=== PATIENT | female | born 1960 | race Caucasian/White ===

== ENCOUNTER 2019-04-14 15:18 | Outpatient (CLI) | payer MEDICARE, OTHER, SELFPAY ==
[2019-04-14 16:03] LABS: Basophils % 0.7 %; Eosinophils % 0.7 %; Hematocrit 40.5 % (37.0-47.0); Hemoglobin 14.1 g/dL (11.5-15.3); Lymphocytes # 0.4 10^3/uL (0.8-4.8); Lymphocytes % 15.7 %; Mean Corpuscular HGB Conc 34.8 g/dL (30.0-36.0); Mean Corpuscular Hemoglobin 34.2 pg (28.0-34.0); Mean Corpuscular Volume 98.3 fL (81-99); Mean Platelet Volume 11.7 fL (7.4-10.4); Monocytes # 0.2 10^3/uL (0.2-0.9); Monocytes % 5.7 %; Neutrophils # 2.2 10^3/uL (1.8-7.7); Neutrophils % 77.2 %; Nucleated Red Blood Cells % 0 %; Platelet Count 155 10^3/cmm (130-400); Red Blood Count 4.12 10^6/uL (4.1-5.3); White Blood Count 2.8 10^3/uL (4.0-10.0)
[2019-04-14 16:20] LABS: Alanine Aminotransferase 64 U/L (0-33); Albumin Level 3.7 g/dL (3.5-5.2); Alkaline Phosphatase 101 IU/L (35-105); Aspartate Amino Transferase 89 U/L (0-32); Globulin 3.4 g/dL (1.3-4.6); Total Bilirubin 1.2 mg/dL (0.15-1.2); Total Protein 7.1 g/dL (6.6-8.7)
== END 2019-04-14 15:19 | disposition home or self-care (01) ==
LOC: LAB 15:25
PROVIDERS: Family Provider Family Medicine; PCP Family Medicine; Visit Provider Psychiatry & Neurology Neurology
DX: G70.00 Myasthenia gravis without (acute) exacerbation (principal)
CPT/HCPCS: 36415; 80076; 85025

== ENCOUNTER 2019-07-08 13:49 | Emergency (ER) | payer MEDICARE, OTHER, SELFPAY ==
[2019-07-08 14:45] VITALS: BP 123/76; PULSE 78; RESP 14; TEMP 37.5; O2SAT 96; BMI 27.4
--- NOTE | 2019-07-08 14:46 | W.ED.GENADLT ---
HPI - General Adult General: Chief complaint: General Medical Stated complaint: cramps Time Seen by Provider: 07/08/19 14:34 History of Present Illness: HPI narrative: Patient is a 58-year-old female who comes to the ED with abdominal cramping. Abdominal cramping started today right after eating lunch. Patient says that she felt intense pain in the middle of her abdomen that caused her whole body to tense up. The pain would come and go and this lasted for about 30 minutes. Patient says she has never had this kind of abdominal pain before. Patient decided come to the ED for evaluation. While here in the ED she is not having any abdominal pain or cramping. She denies having any fever, nausea, vomiting, chest pain, shortness of breath, dysuria, hematuria, diarrhea, constipation, blood in stool. Associated symptoms: Deny chest pain, dyspnea, headache(s), nausea, rash, palpitations or vomiting Review of Systems Const: Denies: fever, chills or fatigue Eyes: Denies: change in vision or eye discomfort ENMT: Denies: throat pain, painful swallowing, nasal discharge or nasal congestion Card: Denies: chest pain, palpitations, edema, swelling of feet/ankles, shortness of breath on exertion or shortness of breath when lying down Resp: Denies: shortness of breath, productive cough or non-productive cough GI: Reports: abdominal pain; Denies: nausea, vomiting, diarrhea, constipation or blood in stool : Denies: flank pain, painful urination or blood in urine Musc: Denies: neck pain, back pain or extremity swelling Skin/Breast: Denies: rash or new lesion Neuro: Denies: headache, numbness in extremities or weakness in extremities PFS ED PFSH: Social History Smoking and tobacco status: never smoked Physical Exam Const: COMMON NORMALS: no apparent distress, oriented x3, healthy appearing and alert GENERAL APPEARANCE: cooperative, comfortable and well hydrated HENMT: COMMON NORMALS: normocephalic HEAD & SCALP: normocephalic MOUTH: oral and palatal mucosa normal THROAT: posterior oropharynx normal and uvula midline Eye: COMMON NORMALS: PERRL PUPIL: Yes PERRL Neck/C-Spine: COMMON NORMALS: supple GENERAL: Yes normal visual inspection Resp: COMMON NORMALS: normal respiratory effort, no retractions, no use of accessory muscles and clear to auscultation bilaterally AUSCULTATION: clear to auscultation bilaterally Cardio: COMMON NORMALS: regular rate, regular rhythm, S1 normal heart sound, S2 normal heart sound, no gallops, no clicks, no murmurs and peripheral pulses 2+ throughout RATE: regular rate RHYTHM: regular rhythm HEART SOUNDS: S1 normal and S2 normal PERIPHERAL PULSES: pulses 2+ throughout GI: COMMON NORMALS: normal to inspection, nondistended, normoactive bowel sounds, soft to palpation (No tenderness upon palpation of the abdomen. Negative McBurney's and negative Dyson's.), non-tender and no masses INSPECTION: Yes central obesity AUSCULTATION: Yes normoactive bowel sounds PALPATION: Yes soft (No tenderness upon palpation of the abdomen. Negative McBurney's and negative Dyson's.) : COMMON NORMALS: Yes no CVA tenderness BLADDER/KIDNEY EXAM: Yes no CVA tenderness Back/Pelvis: COMMON NORMALS: no CVA tenderness Extremity: COMMON NORMALS: normal to inspection and no pedal edema Neuro: COMMON NORMALS: oriented x3 and moves all extremities SENSORIUM/ORIENTATION: Yes alert Skin: COMMON NORMALS: no rashes or lesions noted GENERAL SKIN EXAM: no rashes or lesions noted and dry skin Course ED course: Patient feels normal while here in ED and has not had any episodes of abdominal pain or cramping. Patient states that she did not want to come to the ED did not think the abdominal cramping was a big deal, but her family insisted she comes to the ED. Vital Signs: Vital signs: Vital Signs Temperature 99.5 F 07/08/19 14:45 Pulse Rate 76 07/08/19 16:51 Respiratory Rate 16 07/08/19 16:51 Blood Pressure 108/65 07/08/19 16:51 Pulse Oximetry 95 07/08/19 16:51 MDM - General Adult MDM Narrative: Medical decision making narrative: Patient is a 58-year-old female who comes to the ED with an episode of abdominal cramping. Symptoms resolved at home and patient had no similar abdominal cramping episode while here in the ED. CBC, lipase, UA and CMP were all unremarkable. KUB showed no acute findings. Patient was discharged and told to follow-up with her PCP in the next 7 to 10 days for reevaluation. Patient understood and agreed with plan. Lab Data: Attestation: I reviewed the patient's lab results. Labs: Lab Results 07/08/19 07/08/19 07/08/19 Range/Units 15:27 15:27 15:30 WBC 3.1 L (4.0-10.0) 10^3/ uL RBC 3.96 L (4.1-5.3) 10^6/u L Hgb 13.4 (11.5-15.3) g/dL Hct 39.2 (37.0-47.0) % MCV 99.0 (81-99) fL MCH 33.8 (28.0-34.0) pg MCHC 34.2 (30.0-36.0) g/dL RDW 13.4 (12.1-15.1) % Plt Count 147 (130-400) 10^3/c mm MPV 11.3 H (7.4-10.4) fL Neut % (Auto) 75.3 % Lymph % (Auto) 16.0 % [place] % (Auto) 6.4 % Eos % (Auto) 1.0 % Baso % (Auto) 1.0 % Neut # (Auto) 2.4 (1.8-7.7) 10^3/u L Lymph # (Auto) 0.5 L (0.8-4.8) 10^3/u L [place] # (Auto) 0.2 (0.2-0.9) 10^3/u L Eos # (Auto) 0.0 (0.0-0.8) 10^3/u L Baso # (Auto) 0.0 (0.0-0.1) 10^3/u L Nucleated RBC % (a uto) 0 % Nucleated RBCs # 0.0 /100WBC Sodium 138 (136-145) mmol/L Potassium 4.3 (3.5-5.1) mmol/L Chloride 100 (98-107) mmol/L Carbon Dioxide 26 (22-29) mmol/L Anion Gap 16.3 (5-19) BUN 11 (6-20) mg/dL Creatinine 0.6 (0.5-0.9) mg/dL GFR Calculation 102.3 (90-130) mL/min Glucose 343 H (65-115) mg/dL Calculated Osmolal ity 296 H (285-295) mOsm/k g Calcium 9.6 (8.5-10.5) mg/dL Total Bilirubin 1.3 H (0.15-1.2) mg/dL AST 31 (0-32) U/L ALT 25 (0-33) U/L Alkaline Phosphata se 88 (35-105) IU/L Total Protein 6.7 (6.6-8.7) g/dL Albumin 4.2 (3.5-5.2) g/dL Globulin 2.5 (1.3-4.6) g/dL Lipase 50 (13-60) U/L Urine Color Yellow (Yellow) Urine Appearance Sl hazy (CLEAR) Urine pH 5 (5-7) Ur Specific Gravit y 1.010 (1.005-1.030) Urine Protein Neg (Negative) Urine Glucose (UA) 4+ H (Normal) Urine Ketones Negative (Negative) Urine Blood Neg (Negative) Urine Nitrate Negative (Negative) Urine Bilirubin Neg (NEGATIVE) Urine Urobilinogen Norm (Negative) mg/dL Ur Leukocyte Jennifer ase 2+ H (Negative) Urine RBC None (0-2) /hpf Urine WBC 10-15 H (0-5) /hpf Ur Squamous Epith Cells 10-15 H (0-5) Urine Bacteria Trace (NONE) Urine Mucus Trace Imaging Data^: KUB: Attestation: I personally reviewed and interpreted this imaging study as follows: Radiologist's impression: [place] [address] XRay Report Signed Patient: Pia Osborn Unit #: [id number] : 1960 Age/Sex: 58 / F ADM Date: 07/08/19 Loc: ER Room/Bed: Attending Dr: Ordering Provider/Ordering MD: Idris Ventura Date of Service: 07/08/19 Procedure(s): XR KUB portable [id number] Accession Number(s): [id number] Report Number: [id number] WS: [id number] XR KUB portable [id number] REASON FOR EXAM: abdominal pain FINDINGS: Nonspecific gas with marked fecal stasis throughout the colon. The bony lumbar spine and pelvis show no abnormalities. There is no air-fluid levels seen. No definite free air seen. XR/XR KUB portable [id number] IMPRESSION: Nonspecific abdominal findings. Dictated By: Josue Dyson DO Signed By: Josue Dyson DO Signed Date/Time: 07/09/19751 DD/ 1 Discharge Plan Discharge Patient Disposition: Home, Self-Care Clinical Impression: Abdominal cramping Condition: Stable Prescriptions: No Action atorvastatin 20 mg tablet 20 mg PO DAILY RF: 0 glipizide 10 mg tablet 10 mg PO BID RF: 0 azathioprine 50 mg tablet 50 mg PO DAILY RF: 0 citalopram 20 mg tablet 20 mg PO DAILY RF: 0 cyanocobalamin (vitamin B-12) 1,000 mcg/mL solution See Rx Instructions .ROUTE .COMPLEX RF: 0 pyridostigmine bromide 60 mg tablet 60 mg PO QID RF: 0 metformin 500 mg tablet extended release 24 hr 1,000 mg PO BID RF: 0 Euthyrox 112 mcg tablet 100 mcg PO DAILY RF: 0 Januvia 100 mg tablet 100 mg PO DAILY RF: 0 Discharge Orders: Discharge Order (Routine); Ordered 07/08/19 Ordered By: Idris Ventura Referrals: Phyllis Shaw MD [Primary Care Provider] - Discharge Diet: Regular Discharge Activity: Resume usual activity Patient Instructions: Abdominal Pain (ED) Activity Restrictions/Additional Instructions: Follow-up with PCP in 7 to 10 days for reevaluation. Drink plenty of fluids and stay hydrated. Keep a food journal to see if there is any foods in particular that cause symptoms. Discharge Date/Time: 07/08/19 17:08 Coding Level of Care Code ED Foreclosure Clerk for Chg Fwd Exam Comprehensive
--- NOTE | 2019-07-08 15:06 | XR_ITS ---
WS: [id number] XR KUB portable [id number] REASON FOR EXAM: abdominal pain FINDINGS: Nonspecific gas with marked fecal stasis throughout the colon. The bony lumbar spine and pelvis show no abnormalities. There is no air-fluid levels seen. No definite free air seen. XR/XR KUB portable [id number] IMPRESSION: Nonspecific abdominal findings.
[2019-07-08 15:33] LABS: Hematocrit 39.2 % (37.0-47.0); Hemoglobin 13.4 g/dL (11.5-15.3); Lymphocytes # 0.5 10^3/uL (0.8-4.8); Mean Corpuscular HGB Conc 34.2 g/dL (30.0-36.0); Mean Corpuscular Hemoglobin 33.8 pg (28.0-34.0); Mean Platelet Volume 11.3 fL (7.4-10.4); Monocytes # 0.2 10^3/uL (0.2-0.9); Monocytes % 6.4 %; Neutrophils # 2.4 10^3/uL (1.8-7.7); Neutrophils % 75.3 %; Nucleated Red Blood Cells % 0 %; Platelet Count 147 10^3/cmm (130-400); Red Blood Count 3.96 10^6/uL (4.1-5.3); Red Cell Distribution Width 13.4 % (12.1-15.1); White Blood Count 3.1 10^3/uL (4.0-10.0)
[2019-07-08 15:47] LABS: Alanine Aminotransferase 25 U/L (0-33); Albumin Level 4.2 g/dL (3.5-5.2); Alkaline Phosphatase 88 IU/L (35-105); Anion Gap 16.3 (5-19); Aspartate Amino Transferase 31 U/L (0-32); Blood Urea Nitrogen 11 mg/dL (6-20); Calcium 9.6 mg/dL (8.5-10.5); Carbon Dioxide 26 mmol/L (22-29); Chloride 100 mmol/L (98-107); Globulin 2.5 g/dL (1.3-4.6); Glomerular Filtration Rate 102.3 mL/min (90-130); Glucose 343 mg/dL (65-115); Lipase 50 U/L (13-60); Osmolality Calculated 296 mOsm/kg (285-295); Potassium 4.3 mmol/L (3.5-5.1); Sodium 138 mmol/L (136-145); Total Bilirubin 1.3 mg/dL (0.15-1.2); Total Protein 6.7 g/dL (6.6-8.7)
[2019-07-08 15:56] LABS: Bilirubin Urine Neg (NEGATIVE); Blood Urine Neg (Negative); Glucose Urine UA 4+ (Normal); Ketones Urine Negative (Negative); Leukocyte Esterase Urine 2+ (Negative); Nitrate Urine Negative (Negative); Protein Urine Neg (Negative); Urine Appearance SL Hazy (CLEAR); Urine Color Yellow (Yellow); Urobilinogen Urine Norm (Negative); pH Urine 5 (5-7)
[2019-07-08 15:59] LABS: Add Urine Culture? No; Bacteria Urine TRACE; Mucus Urine TRACE
[2019-07-08 16:51] VITALS: BP 108/65; PULSE 76; RESP 16; O2SAT 95
== END 2019-07-08 17:08 | disposition home or self-care (01) ==
PROVIDERS: Emergency Provider Physician Assistant; PCP Family Medicine
DX: R10.9 Unspecified abdominal pain (principal); Z79.84 Long term (current) use of oral hypoglycemic drugs
CPT/HCPCS: 12345; 74018; 80053; 81001; 83690; 85025; 99282; 99283

== ENCOUNTER 2020-12-18 10:19 | Outpatient (CLI) | payer MEDICARE, OTHER, SELFPAY ==
--- NOTE | 2020-12-18 10:28 | MM_ITS ---
WS: [id number] BILATERAL SCREENING DIGITAL MAMMOGRAM WITH CAD HISTORY: SCREENING COMPARISON: None available. Bilateral CC and MLO views submitted. Computer aided detection analyzed. Breast composition: There are scattered areas of fibroglandular density. No suspicious masses, microc alcifications or architectural distortion. Benign calcifications in each breast. MM/[place] [id number] IMPRESSION: BI-RADS: 2-Benign FOLLOW UP: 1 Year Follow-up
== END 2020-12-18 10:20 | disposition home or self-care (01) ==
LOC: RADSHAW 10:27
PROVIDERS: PCP Family Medicine; Visit Provider Internal Medicine
DX: Z12.31 Encounter for screening mammogram for malignant neoplasm of breast (principal)
CPT/HCPCS: 77067

== ENCOUNTER 2021-07-25 13:21 | Emergency (ER) | payer MEDICARE, OTHER, SELFPAY ==
--- NOTE | 2021-07-25 13:22 | ED_ITS ---
HPI - General Adult General: Chief complaint: Fall Stated complaint: FALL/ HIP PAIN Time Seen by Provider: 07/25/21 13:22 History of Present Illness: Patient is 60-year-old female with history of myasthenia gravis, hypothyroidism, diabetes who presents emergency room after mechanical fall which occurred about an hour ago. Patient was also she tripped and fell onto her back. Patient complains of left anterior brown pain and left- sided hip pain. Patient denies any head injury, LOC or anticoagulation use. Patient has no complaints of chest pain, shortness of palpitation lighthea dedness prior to the episode of fall. No other injuries today. Patient has not been able to bear weight. Onset:1 hr ago Duration:1 hr Location:home Severity:moderate/severe Associated symptoms: Deny chest pain, dyspnea, nausea, rash, palpitations or vomiting Review of Systems Const: Denies: fever(s) or chills Eyes: Denies: change in vision ENMT: Denies: mouth pain Card: Denies: chest pain or palpitations Resp: Denies: dyspnea or non-productive cough GI: Denies: abdominal pain, nausea, vomiting or diarrhea : Denies: dysuria Musc: Reports: extremity pain (+L hip pain, +L knee/anterior brown pain) Skin/Breast: Denies: rash or new lesions Neuro: Denies: weakness in extremities Psych: Reports: other (Normal mood) Minesh/Lymph: Denies: easy bruising PFS ED PFSH: Medical History Diabetes Hypothyroidism Myasthenia Social History Smoking and tobacco status: never smoked Alcohol intake: never Substance/Drug Use: never Physical Exam Const: COMMON NORMALS: alert HENMT: COMMON NORMALS: atraumatic HEAD & SCALP: atraumatic MOUTH: moist mucous membranes not abnormal Eye: COMMON NORMALS: EOMs intact bilaterally and conjunctivae normal CONJUNCTIVA: Yes conjunctivae normal Neck/C-Spine: COMMON NORMALS: full ROM and supple Resp: COMMON NORMALS: normal respiratory effort and clear to auscultation bilaterally AUSCULTATION: clear to auscultation bilaterally Cardio: COMMON NORMALS: regular rate RATE: regular rate GI: COMMON NORMALS: Soft to palpation and non-tender PALPATION: Yes Soft to palpation Extremity: NARRATIVE EXTREMITY EXAM: + Decreased range of motion of the left hip, neurovascular exam intact on the left lower extremity, mild tenderness palpation over the anterior brown on the left side, range of motion of left knee and left ankle intact, cap refill less than 3 seconds in the left side Neuro: SENSORIUM/ORIENTATION: Yes alert MOTOR EXAM: No Abnormal motor strength present and Other motor observations present (no focal motor deficits) Psych: COMMON NORMALS: speech normal SPEECH: Yes normal speech MOOD & AFFECT: Yes euthymic mood Course Vital Signs: Vital signs: Vital Signs Temperature 98.2 F 07/25/21 13:25 Pulse Rate 70 07/25/21 13:25 Respiratory Rate 18 07/25/21 14:44 Blood Pressure 174/85 07/25/21 13:25 Pulse Oximetry 97 07/25/21 14:44 MDM - General Adult Medical Decision Making 60-year-old female with history of myasthenia gravis, diabetes, hypothyroidism presenting to the emergency room for an episode of fall. Patient comes in with left hip and left knee anterior brown pain. Patient has mild left anterior brown tenderness palpation. Neurovascular exam in the affected extremity intact. Range of motion decreased on the left hip due to pain. XR showed L hip fracture. At 2:15 PM, family elects to be transferred to higher level of care given patient prior history myasthenia gravis issue with an esthesia Case was discussed with Dr. Plunkett who agreed with the transfer to [facility]. Disposition: Transfer to outside hospital Lab Data : 07/25/21 14:25 07/25/21 14:25 Radiology Impressions Hip/Pelvis X-Ray 07/25/21 13:26 IMPRESSION: 1. Slightly displaced subcapital fracture of the left hip. Knee X-Ray 07/25/21 13:26 IMPRESSION: 1. Mild degenerative changes and osteopenia. No fracture. Tibia/Fibula X-Ray 07/25/21 13:26 IMPRESSION: 1. No fracture or dislocation. Shoulder X-Ray 07/25/21 13:34 IMPRESSION: LEFT shoulder calcific tendinitis. No fracture. Wrist X-Ray 07/25/21 13:34 IMPRESSION: 1. No acute fracture. Laboratory Results WBC 5.2 10^3/uL (4.0-10.0) 07/25/21 14:25 RBC 3.76 10^6/uL (4.1-5.3) L 07/25/21 14:25 Hgb 11.1 g/dL (11.5-15.3) L 07/25/21 14:25 Hct 33.0 % (37.0-47.0) L 07/25/21 14:25 MCV 87.8 fl (81-99) 07/25/21 14:25 MCH 29.5 pg (28.0-34.0) 07/25/21 14:25 MCHC 33.6 g/dL (30.0-36.0) 07/25/21 14:25 RDW 13.6 % (12.1-15.1) 07/25/21 14:25 Plt Count 104 10^3/cmm (130-400) L 07/25/21 14:25 MPV 11.3 fL (7.4-10.4) H 07/25/21 14:25 Neut % (Auto) 74.9 % 07/25/21 14:25 Lymph % (Auto) 17.5 % 07/25/21 14:25 [place] % (Auto) 5.8 % 07/25/21 14:25 Eos % (Auto) 0.8 % 07/25/21 14:25 Baso % (Auto) 0.4 % 07/25/21 14: Neut # (Auto) 3.89 10^3/uL (1.8-7.7) 07/25/21 14:25 Lymph # (Auto) 0.9 10^3/uL (0.8-4.8) 07/25/21 14:25 [place] # (Auto) 0.3 10^3/uL (0.2-0.9) 07/25/21 14:25 Eos # (Auto) 0.0 10^3/uL (0.0-0.8) 07/25/21 14:25 Baso # (Auto) 0.0 10^3/uL (0.0-0.1) 07/25/21 14:25 Nucleated RBC % (auto) 0 % 07/25/21 14: Nucleated RBCs # 0.0 /100WBC 07/25/21 14:25 PT 13.20 SECONDS (12.1-14.9) 07/25/21 14:25 INR 0.97 (0.8-1.2) 07/25/21 14:25 APTT 23.0 SECONDS (23.9-36.7) L 07/25/21 14:25 Sodium 135 mmol/L (136-145) L 07/25/21 14:25 Potassium 4.0 mmol/L (3.5-5.1) 07/25/21 14:25 Chloride 99 mmol/L (98-107) 07/25/21 14:25 Carbon Dioxide 26 mmol/L (22-29) 07/25/21 14:25 Anion Gap 14.0 (5-19) 07/25/21 14:25 BUN 15 mg/dL (8-23) 07/25/21 14:25 Creatinine 0.4 mg/dL (0.5-0.9) L 07/25/21 14:25 GFR Calculation 162.3 mL/min (90-130) H 07/25/21 14:25 Glucose 371 mg/dL (65-115) H 07/25/21 14:25 Calculated Osmolality 296 mOsm/kg (285-295) H 07/25/21 14:25 Calcium 9.7 mg/dL (8.5-10.5) 07/25/21 14:25 Imaging Data Other Imaging: Radiologist's impression: [address] [address] XRay Report Signed Patient: Pia Osborn Unit #: [id number] : 1960 Age/Sex: 60 / F ADM Date: 07/25/21 Loc: ER Room/Bed: Attending Dr: Ordering Provider/Ordering MD: Gila Benitez MD Date of Service: 07/25/21 Procedure(s): XR wrist LT 2V 46733 Accession Number(s): [id number] Report Number: [id number] WS: [email or web address] Exam: XR wrist LT 2V 00384 Date/Time of Exam: 07/25/2021 1:34 PM Reason For Exam: pain No fracture or dislocation. Mild DJD. Vascular calcifications noted. XR/XR wrist LT 2V [id number] IMPRESSION: 1. No acute fracture. ? Dictated By: Ab Melchor DO Signed By: Ab Melchor DO Signed Date/Time: 07/25/21 1441 DD/ 1441 [place] [address] XRay Report Signed Patient: Pia Osborn Unit #: [id number] : 1960 Age/Sex: 60 / F ADM Date: 07/25/21 Loc: ER Room/Bed: Attending Dr: Ordering Provider/Ordering MD: Gila Benitez MD Date of Service: 07/25/21 Procedure(s): XR shoulder LT min 2V* 03456 Accession Number(s): [id number] Report Number: [id number] WS: [email or web address] LEFT SHOULDER: 3 VIEW(S) TECHNIQUE: Internal and external rotation with Y view. HISTORY: pain COMPARISON: None available. Osteopenia. Well-circumscribed calcific deposit measuring 7.3 cm adjacent to the humeral head. Mild narrowing of the before meals and glenohumeral joint. No fracture identified. No soft tissue abnormality. XR/XR shoulder LT min 2V* [id number] IMPRESSION: ? LEFT shoulder calcific tendinitis. No fracture. ? Dictated By: Jana Morin DO Signed By: Jana Morin DO Signed Date/Time: 07/25/21 1421 DD/ 14[address] [place] [address] XRay Report Signed Patient: Pia Osborn Unit #: [id number] : 1960 Age/Sex: 60 / F ADM Date: 07/25/21 Loc: ER Room/Bed: Attending Dr: Ordering Provider/Ordering MD: Gila Benitez MD Date of Service: 07/25/21 Procedure(s): XR tibia fibula LT 2V 17982 Accession Number(s): [id number] Report Number: [id number] WS: [email or web address] Exam: XR tibia fibula LT 2V [id number] Date/Time of Exam: 07/25/2021 1:29 PM Reason For Exam: fall No fracture or dislocation. Articular relationships are intact. Vascular calcifications in the soft tissues. XR/XR tibia fibula LT 2V 81851 IMPRESSION: 1. No fracture or dislocation. ? Dictated By: Ab Melchor DO Signed By: Ab Melchor DO Signed Date/Time: 07/25/21 1440 DD/ 14[address] [place] [address] XRay Report Signed Patient: Pia Osborn Unit #: [id number] : 1960 Age/Sex: 60 / F ADM Date: 07/25/21 Loc: ER Room/Bed: Attending Dr: Ordering Provider/Ordering MD: Gila Benitez MD Date of Service: 07/25/21 Procedure(s): XR knee LT 1-2V 12913 Accession Number(s): [id number] Report Number: [id number] WS: [email or web address] Exam: XR knee LT 1-2V 37318 Date/Time of Exam: 07/25/2021 1:29 PM Reason For Exam: knee pain No fracture or dislocation. Mild degenerative joint changes. Osteopenia. Normal soft tissues. No joint effusion. XR/XR knee LT 1-2V 39875 IMPRESSION: 1. Mild degenerative changes and osteopenia. No fracture. ? Dictated By: Ab Melchor DO Signed By: Ab Melchor DO Signed Date/Time: 07/25/21 1440 DD/ [address] [place] [address] XRay Report Signed Patient: Pia Osborn Unit #: [id number] : 1960 Age/Sex: 60 / F ADM Date: 07/25/21 Loc: ER Room/Bed: Attending Dr: Ordering Provider/Ordering MD: Gila Benitez MD Date of Service: 07/25/21 Procedure(s): XR hip LT 2-3V wo/w pel* 74775 Accession Number(s): [id number] Report Number: [id number] WS: [email or web address] Exam: XR hip LT 2-3V wo/w pel* [id number] Date/Time of Exam: 07/25/2021 1:29 PM Reason For Exam: hip pain There is subcapital fracture of the left hip with minimal displacement. No other fractures are noted. Moderate DJD of the joint compartment. The pelvis is intact. XR/XR hip LT 2-3V wo/w pel* [id number] IMPRESSION: 1. Slightly displaced subcapital fracture of the left hip. ? Dictated By: Ab Melchor DO Signed By: Ab Melchor DO Signed Date/Time: 07/25/21 1439 DD/ 1438 Discharge Plan Discharge Patient Disposition: Admitted As Inpatient Clinical Impression: Acute hip pain Condition: Stable Coding Level of Care Code ED Quarantine Inspector for Adolfo Fwsoy Exam Comprehensive
[2021-07-25 13:25] VITALS: BP 174/85; PULSE 70; RESP 16; TEMP 36.8; O2SAT 98; BMI 27.6
--- NOTE | 2021-07-25 13:26 | XR_ITS ---
WS: [email or web address] Exam: XR hip LT 2-3V wo/w pel* [id number] Date/Time of Exam: 07/25/2021 1:29 PM Reason For Exam: hip pain There is subcapital fracture of the left hip with minimal displacement. No other fractures are noted. Moderate DJD of the joint compartment. The pelvis is intact. XR/XR hip LT 2-3V wo/w pel* 93576 IMPRESSION: 1. Slightly displaced subcapital fracture of the left hip.
--- NOTE | 2021-07-25 13:26 | XR_ITS ---
WS: [email or web address] Exam: XR tibia fibula LT 2V [id number] Date/Time of Exam: 07/25/2021 1:29 PM Reason For Exam: fall No fracture or dislocation. Articular relationships are intact. Vascular calcifications in the soft t issues. XR/XR tibia fibula LT 2V 51917 IMPRESSION: 1. No fracture or dislocation.
--- NOTE | 2021-07-25 13:26 | XR_ITS ---
WS: [email or web address] Exam: XR knee LT 1-2V 28443 Date/Time of Exam: 07/25/2021 1:29 PM Reason For Exam: knee pain No fracture or dislocation. Mild degenerative joint changes. Osteopenia. Normal soft tissues. No join t effusion. XR/XR knee LT 1-2V 75477 IMPRESSION: 1. Mild degenerative changes and osteopenia. No fracture.
[2021-07-25 13:30] VITALS: RESP 16; O2SAT 97
[2021-07-25] MEDS: morphine 4 mg/mL SDV 1 mL IVP (13:30)
--- NOTE | 2021-07-25 13:34 | XR_ITS ---
WS: [email or web address] Exam: XR wrist LT 2V 34694 Date/Time of Exam: 07/25/2021 1:34 PM Reason For Exam: pain No fracture or dislocation. Mild DJD. Vascular calcifications noted. XR/XR wrist LT 2V 29358 IMPRESSION: 1. No acute fracture.
--- NOTE | 2021-07-25 13:34 | XR_ITS ---
WS: [email or web address] LEFT SHOULDER: 3 VIEW(S) TECHNIQUE: Internal and external rotation with Y view. HISTORY: pain COMPARISON: None available. Osteopenia. Well-circumscribed calcific deposit measuring 7.3 cm adjacent to the humeral head. Mild n arrowing of the before meals and glenohumeral joint. No fracture identified. No soft tissue abnormality. XR/XR shoulder LT min 2V* 78907 IMPRESSION: LEFT shoulder calcific tendinitis. No fracture.
--- NOTE | 2021-07-25 13:47 | PC.NURSE ---
patients son at the bedside- patients son also stayed in the room during all xrays
[2021-07-25 14:35] LABS: Basophils % 0.4 %; Eosinophils % 0.8 %; Hemoglobin 11.1 g/dL (11.5-15.3); Lymphocytes # 0.9 10^3/uL (0.8-4.8); Lymphocytes % 17.5 %; Mean Corpuscular HGB Conc 33.6 g/dL (30.0-36.0); Mean Corpuscular Hemoglobin 29.5 pg (28.0-34.0); Mean Corpuscular Volume 87.8 fl (81-99); Mean Platelet Volume 11.3 fL (7.4-10.4); Monocytes # 0.3 10^3/uL (0.2-0.9); Monocytes % 5.8 %; Neutrophils # 3.89 10^3/uL (1.8-7.7); Neutrophils % 74.9 %; Nucleated Red Blood Cells % 0 %; Platelet Count 104 10^3/cmm (130-400); Red Blood Count 3.76 10^6/uL (4.1-5.3); Red Cell Distribution Width 13.6 % (12.1-15.1); White Blood Count 5.2 10^3/uL (4.0-10.0)
[2021-07-25 14:44] VITALS: RESP 18; O2SAT 97
[2021-07-25] MEDS: morphine 4 mg/mL SDV 1 mL 2 MG IVP (14:44)
[2021-07-25 14:48] LABS: Blood Urea Nitrogen 15 mg/dL (8-23); Calcium 9.7 mg/dL (8.5-10.5); Carbon Dioxide 26 mmol/L (22-29); Chloride 99 mmol/L (98-107); Glomerular Filtration Rate 162.3 mL/min (90-130); Glucose 371 mg/dL (65-115); Osmolality Calculated 296 mOsm/kg (285-295); Sodium 135 mmol/L (136-145)
[2021-07-25 14:55] LABS: INR 0.97 (0.8-1.2)
--- NOTE | 2021-07-25 15:44 | CT_ITS ---
WS: [email or web address] CT ABDOMEN AND PELVIS NONCONTRAST HISTORY: trauma TECHNIQUE: Imaging performed through the abdomen and pelvis. Coronal and sagittal reformats are submi tted. All CT scans at [facility] use at least one of these dose optimization techniques: auto mated exposure control; mA and/or kV adjustment per patient size (includes targeted exams where dose is matched to clinical indication); or iterative reconstruction. DLP: 1243.34 mGy.cm COMPARISON: None available. Lower thorax: Lung bases are clear. No cardiomegaly. No hiatal hernia. Liver: Normal size liver. No mass or bile duct dilatation. Gallbladder: Normal gallbladder. Pancreas: Marked atrophy of the pancreas and fatty replacement. No pancreatic duct dilatation. Spleen: Normal spleen with granulomata. Adrenal glands: Normal. No mass. Right kidney: Normal size kidney with no mass or hydronephrosis. Left kidney: Normal size kidney with no mass or hydronephrosis. Aorta: Mild atherosclerosis abdominal aorta with no aneurysm. No free fluid, intraperitoneal air or significant lymphadenopathy. GI tract: Appendix is not definitely visualized. No GI tract obstruction. Normally distended stomach. Abdominal wall: Negative. No hernia. Pelvis: Normal. Osseous structures: Acute fracture LEFT femoral head and neck. Fracture extends extends subcapital. N o displacement. CT/CT abdomen pelvis wo con [id number] IMPRESSION: 1. No acute abdominal or pelvic abnormalities. 2. The appendix is not identified. 3. No GI tract obstruction. 4. Nondisplaced acute fracture LEFT femoral head and neck extends subcapital.
--- NOTE | 2021-07-25 15:44 | CT_ITS ---
WS: [email or web address] CT CERVICAL SPINE HISTORY: ams TECHNIQUE: Contiguous 2.5 mm axial imaging performed through the entire cervical spine. Sagittal and coronal reformats also performed. All CT scans at [facility] use at least one of these dose o ptimization techniques: automated exposure control; mA and/or kV adjustment per patient size (include s targeted exams where dose is matched to clinical indication); or iterative reconstruction. DLP: 555.42 mGy.cm COMPARISON: None available. Mild LEFT curvature cervical spine. Posterior alignment is normal. There is less than 2 mm anterolist hesis of C4 and C5. No fracture. Craniocervical junction is normal. Lateral masses of C1 and C2 are a ligned. Odontoid is intact. C2-C3: Small central disc protrusion. C3-C4: LEFT facet joint arthritis and LEFT foraminal narrowing. C4-C5: Small central disc protrusion with bilateral facet arthritis. C5-C6: Mild bilateral facet arthritis and foraminal narrowing. C6-C7: Normal. C7-T1: Normal. Lung apices are clear. Calcification noted at the carotid bifurcations. CT/CT cervical spin wo con* [id number] IMPRESSION: 1. No acute cervical spine fracture. 2. 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
--- NOTE | 2021-07-25 15:44 | CT_ITS ---
WS: [id number] CT HEAD NONCONTRAST HISTORY: hypotension TECHNIQUE: Contiguous axial imaging performed through the brain in 2.5 mm imaging. Bone and soft tiss ue windows. Sagittal and coronal reformats reviewed. All CT scans at [facility] use at least one of these dose optimization techniques: automated exposure control; mA and/or kV adjustment per pa tient size (includes targeted exams where dose is matched to clinical indication); or iterative recon struction. DLP: 745.9 mGy.cm COMPARISON: None available. No acute intracranial hemorrhage, midline shift or mass effect. Very minimal atrophy and small vessel ischemic disease. Prior lacunar infarct in the inferior RIGHT b kate ganglia versus perivascular space. No acute infarct or sulcal effacement. Ventricles: Normal size with no hydrocephalus. No inferior displacement of cerebellar tonsils. Paranasal sinuses: As visualized are clear. Mastoid air cells: Well pneumatized. Calvarium and scalp: Skull is intact with no soft tissue edema or swelling. CT/CT head wo con* [id number] IMPRESSION: 1. No acute intracranial hemorrhage or edema. 2. Minimal atrophy and small vessel ischemic disease. 3. Remote lacunar infarct versus perivascular space inferior RIGHT basal gangl ia.
[2021-07-25] MEDS: acetaminophen 500 mg Tablet 1000 MG PO (16:34)
[2021-07-25 16:36] VITALS: BP 112/63; PULSE 66; O2SAT 93
== END 2021-07-25 16:38 | disposition admitted as inpatient to this hospital (09) ==
PROVIDERS: Emergency Provider Emergency Medicine; PCP Internal Medicine
DX: S72.012A Unspecified intracapsular fracture of left femur, initial encounter for closed fracture (principal); W18.30XA Fall on same level, unspecified, initial encounter; G70.00 Myasthenia gravis without (acute) exacerbation; E03.9 Hypothyroidism, unspecified; E11.9 Type 2 diabetes mellitus without complications
CPT/HCPCS: 70450; 72125; 73030; 73100; 73502; 73560; 73590; 74176; 80048; 85025; 85610; 85730; 96374; 96376; 99285; J2270

== ENCOUNTER 2022-04-13 10:52 | Outpatient (CLI) | payer MEDICARE, OTHER, SELFPAY ==
--- NOTE | 2022-04-13 11:00 | FL_ITS ---
WS: [id number] MODIFIED BARIUM SWALLOW TECHNIQUE: Modified barium swallow with speech therapy using multiple consistencies. FLUOROSCOPY TIME: 2min [id number] # of spot films: 0 CLINICAL INFORMATION: Other dysphagia COMPARISON: None. FINDINGS: Multiple consistencies utilized. Penetration with thin liquids. No tommy aspiration. Early spillage w ith mild pooling in the vallecula which cleared with additional liquids. Slightly delayed transit of the barium tablet in the distal 3rd esophagus which cleared with additional liquids. No high-grade st ricture. FL/FL barium swallow modifd [id number] IMPRESSION: 1. Penetration with thin liquids. No tommy aspiration. 2. Early spillage with mild pooling in the vallecula which cleared with additi onal liquids. 3. No other suspicious findings.
== END 2022-04-13 10:53 | disposition home or self-care (01) ==
LOC: RAD 10:52
PROVIDERS: PCP Internal Medicine; Visit Provider Internal Medicine
DX: R05.8 Other specified cough (principal); R09.89 Other specified symptoms and signs involving the circulatory and respiratory systems; G70.00 Myasthenia gravis without (acute) exacerbation
CPT/HCPCS: 74230; 92611

== ENCOUNTER 2022-05-25 21:45 | Emergency (ER) | payer MEDICARE, OTHER, SELFPAY ==
[2022-05-25 21:49] VITALS: BP 193/106; PULSE 72; RESP 14; TEMP 36.5; O2SAT 97
--- NOTE | 2022-05-25 22:09 | W.ED.EYEPROB ---
HPI - Eye Problem General: Chief complaint: Eye Problems Stated complaint: R eye injury Time Seen by Provider: 05/25/22 21:59 History of Present Illness: 61-year-old female comes in today for complaints of discoloration to the right eye. Patient reports that she has had a persistent chronic cough for about 1 year after having COVID. Patient also reported some significant coughing spells that she calls a convulsion. Patient states that these are not new to her. Her son noted some discoloration to her right eye and felt that she needed to have it evaluated. Patient did have cataract surgery 1 year ago. Review of Systems General: Reports: 10 or more systems reviewed and unremarkable except in HPI and below Eyes: Reports: eye redness Resp: Reports: non-productive cough PFSH ED PFSH: Medical History Diabetes Hypothyroidism Myasthenia Social History Smoking and tobacco status: never smoked Alcohol intake: never Physical Exam Const: COMMON NORMALS: alert HENMT: COMMON NORMALS: normocephalic HEAD & SCALP: normocephalic MOUTH: Normal oral and palatal mucosa present Eye: COMMON NORMALS: Equal, round and reactive pupils present SCLERA: scleral abnormal Laterality of scleral abnormality: positive right hemorrhage CORNEA: Yes corneas normal PUPIL: Yes Equal, round and reactive pupils present Resp: COMMON NORMALS: normal respiratory effort Cardio: COMMON NORMALS: regular rate RATE: regular rate GI: COMMON NORMALS: non-tender Extremity: COMMON NORMALS: normal to inspection Neuro: SENSORIUM/ORIENTATION: Yes alert Skin: COMMON NORMALS: turgor normal GENERAL SKIN EXAM: turgor normal Course Vital Signs: Vital signs: Vital Signs Temperature 97.7 F 05/25/22 21:49 Pulse Rate 72 05/25/22 21:49 Respiratory Rate 14 05/25/22 21:49 Blood Pressure 193/106 05/25/22 21:49 Pulse Oximetry 97 05/25/22 21:49 Oxygen Delivery Me thod 05/25/22 21:49 MDM - Eye Problem Medical Decision Making 61-year-old female comes in today for complaints of redness to the right eye. On exam patient has a subconjunctival hemorrhage to the right eye. Anterior chambers of the eye are normal. Funduscopy is normal. No changes in vision is noted. Differential diagnosis includes corneal abrasion, subconjunctival hemorrhage, globe trauma. No signs of severe injury is noted. Patient has a subconjunctival hemorrhage. Patient denies any pain or difficulty with vision. Recommend liquid tears eyedrops until resolution of symptoms. Patient requested something to help with her cough Tessalon Perles were written in the prescription. Patient was strongly recommended to follow-up with primary care regarding this persistent cough that she has had for about 1 year for further evaluation. Patient stated understanding and agreed to plan. Discharge Plan Discharge Patient Disposition: Home Clinical Impression: Subconjunctival hemorrhage, Chronic cough Condition: Stable Prescriptions: New benzonatate 100 mg capsule 100 mg PO TID PRN (Reason: cough) Qty: 30 0RF No Action atorvastatin 20 mg tablet 20 mg PO DAILY glipizide 10 mg tablet 10 mg PO BID azathioprine 50 mg tablet 50 mg PO DAILY citalopram 20 mg tablet 20 mg PO DAILY cyanocobalamin (vitamin B-12) 1,000 mcg/mL solution See Rx Instructions .ROUTE .COMPLEX Rx Instructions: INJECTION ONCE PER MONTH. GET SHOT ON THE 12TH. pyridostigmine bromide 60 mg tablet 60 mg PO QID metformin 500 mg tablet extended release 24 hr 1,000 mg PO BID Euthyrox 112 mcg tablet 100 mcg PO DAILY Rx Instructions: PT STATES THAT HER DOCTOR CHANGED HER DOSE TO 100 MCG DAILY Januvia 100 mg tablet 100 mg PO DAILY Discharge Orders: Discharge ED (Routine); Ordered 05/25/22 Ordered By: Vitaly Nguyen Referrals: Ursula Pollard MD [Primary Care Provider] - Discharge Diet: Usual diet Discharge Activity: Increase activity as tolerated Patient Instructions: Chronic Cough (ED) Activity Restrictions/Additional Instructions: Use emollient eyedrops for comfort of the eye such as liquid tears. Follow-up with primary care for further evaluation of chronic cough. Try Tessalon Perles 100 mg 3 times a day as needed for cough. Return to ER for worsening symptoms such as increased shortness of breath, high fever greater than 100.4, or new concerns. Coding Level of Care Code ED Crushing Machine Operator for Adolfo Da Silva
[2022-05-25] MEDS: benzonatate 100 mg Capsule PO (22:41)
--- NOTE | 2022-05-25 22:42 | PC.NURSE ---
2236 05/25/22 sent Benzonatate home with pt due to pt having myasthenia gravis. pt wanted to get it okayed with her neurologist before starting it. I spoke with provider Tee Nguyen and he okayed this decision for pt to double check.
== END 2022-05-25 22:36 | disposition home or self-care (01) ==
PROVIDERS: Emergency Provider Nurse Practitioner Family; PCP Internal Medicine
DX: H11.31 Conjunctival hemorrhage, right eye (principal); R05.3 Chronic cough; Z79.84 Long term (current) use of oral hypoglycemic drugs; E11.9 Type 2 diabetes mellitus without complications
CPT/HCPCS: 99283

== ENCOUNTER → 2022-10-19 11:51 | Outpatient (BNVA) | payer MEDICARE, OTHER, SELFPAY | PROVIDERS: PCP Internal Medicine; Visit Provider Nurse Practitioner Family | DX: M19.012 Primary osteoarthritis, left shoulder (principal) | CPT/HCPCS: 73030 ==

== ENCOUNTER 2022-10-19 17:59 | Emergency (ER) | payer MEDICARE, OTHER, SELFPAY ==
[2022-10-19 18:44] VITALS: BMI 27.4
--- NOTE | 2022-10-19 18:56 | XRR_ITS ---
PROCEDURE INFORMATION: Exam: XR Chest Exam date and time: 10/19/2022 7:07 PM Age: 61 years old Clinical indication: Pain; Chest pressure; Additional info: Cp TECHNIQUE: Imaging protocol: Radiologic exam of the chest. Views: 1 view. COMPARISON: CR XR chest 1V [id number] 05/29/2018 12:38 PM FINDINGS: Lungs: Unremarkable. No consolidation. Pleural spaces: Unremarkable. No pleural effusion. No pneumothorax. Heart/Mediastinum: Unremarkable. No cardiomegaly. Bones/joints: Unremarkable. XR/XR chest 1V portable [id number] IMPRESSION: No acute findings.
[2022-10-19 19:00] VITALS: BP 145/112; PULSE 87; RESP 16; O2SAT 97
--- NOTE | 2022-10-19 19:04 | ECG_ITS ---
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 Measurements Intervals [place] Rate: 72 P: 24 CO: 157 QRS: -6 QRSD: 104 T: 33 QT: 331 QTc: 364 Interpretive Statements SINUS RHYTHM MODERATE VOLTAGE CRITERIA FOR LVH, CONSIDER NORMAL VARIANT [MEETS CRITERIA IN ONE OF: R(aVL), S(V1), R(V5), R(V5/V6)+S(V1)] NONSPECIFIC T-WAVE ABNORMALITY Compared to ECG 11/25/2014 05:59:07 No significant changes Electronically Signed On 10-20-2022 6:42:17 CDT by Brianna An M.D. [id number]
--- NOTE | 2022-10-19 19:05 | W.ED.BACK ---
HPI - Back Pain/Injury General: Chief Complaint: Back Pain/Injury Stated Complaint: fall, sob, back pain, numbness in fingers Time Seen by Provider: 10/19/22 18:51 Source: patient Mode of arrival: ambulatory Limitations: no limitations History of Present Illness: 61-year-old female states that she had a fall on states she been feeling fine but over the last 2 days she been having some upper left back pain states pain is also been in her shoulder she states that today she has had some pain shooting down her left arm states she does have some tenderness to touch over her left upper back some slight pain with range of motion she denies any headache she denies any chest pains been having some mild dyspnea. Associated symptoms: Deny abdominal pain, chills, fever(s), nausea or vomiting Review of Systems Const: Denies: fever(s) or chills Eyes: Denies: eye discomfort ENMT: Denies: throat pain or dental pain Card: Denies: chest pain Resp: Reports: dyspnea GI: Denies: abdominal pain, nausea, vomiting or diarrhea Musc: Reports: neck pain, back pain and extremity pain Skin/Breast: Denies: rash Neuro: Denies: headache(s) PFSH ED PFSH: Medical History Diabetes Hypothyroidism Myasthenia Social History Smoking and tobacco status: never smoked Alcohol intake: never Substance/Drug Use: never Physical Exam Const: COMMON NORMALS: no acute distress, patient oriented x3 and healthy appearing HENMT: COMMON NORMALS: normocephalic and atraumatic HEAD & SCALP: normocephalic and atraumatic Neck/C-Spine: COMMON NORMALS: full ROM and supple Chest: COMMONS NORMALS: normal inspection of the chest and normal palpation of entire chest wall Resp: COMMON NORMALS: normal respiratory effort, No retractions, No use of accessory muscles and clear to auscultation bilaterally AUSCULTATION: clear to auscultation bilaterally Cardio: COMMON NORMALS: regular rate, regular rhythm and No murmurs present (Cardio) RATE: regular rate RHYTHM: regular rhythm GI: COMMON NORMALS: Normal to inspection, nondistended, normoactive bowel sounds present, Soft to palpation, non-tender and no masses PALPATION: Yes Soft to palpation Back/Pelvis: OTHER: Point tender over left upper back over her rhomboid muscle reproduces her pain Extremity: COMMON NORMALS: normal to inspection and full ROM Neuro: COMMON NORMALS: patient oriented x3, moves all extremities and no focal motor deficits Psych: COMMON NORMALS: mental status grossly normal, Normal thought process present and cooperative THOUGHT PROCESS: Normal thought process present Skin: COMMON NORMALS: no rashes or lesions noted and no wounds GENERAL SKIN EXAM: no rashes or lesions noted Course Vital Signs: Vital signs: Vital Signs Pulse Rate 73 10/19/22 22:07 Respiratory Rate 16 10/19/22 22:07 Blood Pressure 166/97 10/19/22 20:42 Pulse Oximetry 99 10/19/22 22:07 Oxygen Delivery Me thod Room Air 10/19/22 21:12 MDM - Back Pain/Injury Medical Decision Making Patient presents with some back pain along with arm pains likely muscular in nature her initial and repeat troponins here are normal family is very concerned of PE as well has had multiple family members with PEs her CTA here showed no signs of PE did inform him that the small pulmonary nodule they are to follow-up with her PCP she feels improved here she is stable for discharge she is to follow-up with PCP and return if worsening. Medical Records I reviewed the patient's medical records. Labs I reviewed the patient's lab results. 10/19/22 19:02 10/19/22 19:02 Radiology Impressions Chest X-Ray 10/19/22 18:56 IMPRESSION: No acute findings. Chest CTA 10/19/22 20:47 IMPRESSION: 1. No acute findings. 2. 4 mm left pulmonary nodule. For patients at low risk (minimal or absent history of smoking and of other known risk factors), no routine follow-up is indicated. For patients at high risk (history of smoking or of other known risk factors), consider optional CT Chest at 12 months. (Reference: Whit) References: Whit Kaufman et al. Guidelines for Management of Incidental Pulmonary Nodules Detected on CT Images: From the Fleischner Society 2017. Radiology. 2017;284(1):228-243. COMMENTS: Consistent with the [place] [employer]'s Incidental Findings Committee white paper (J Am Prerna Radiol 2018): Any incidental renal lesion less than 1 cm or classified as too small to characterize, or any incidental cystic renal lesion characterized as simple-appearing, is likely benign. No follow-up imaging is recommended for these lesions per consensus recommendations based on imaging criteria. Laboratory Results WBC 3.2 10^3/uL (4.0-10.0) L 10/19/22 19: RBC 3.35 10^6/uL (4.1-5.3) L 10/19/22 19: Hgb 10.4 g/dL (11.5-15.3) L 10/19/22 19: Hct 30.4 % (37.0-47.0) L 10/19/22 19: MCV 90.7 fl (81-99) 10/19/22: MCH 31.0 pg (28.0-34.0) 10/19/22: MCHC 34.2 g/dL (30.0-36.0) 10/19/22: RDW 13.6 % (12.1-15.1) 10/19/22: Plt Count 146 10^3/cmm (130-400) 10/19/22 19: MPV 10.3 fL (7.4-10.4) 10/19/22 19: Neut % (Auto) 57.3 % 10/19/22: Lymph % (Auto) 33.0 % 10/19/22: [place] % (Auto) 6.9 % 10/19/22: Eos % (Auto) 2.2 % 10/19/22: Baso % (Auto) 0.6 % 10/19/22 19: Neut # (Auto) 1.84 10^3/uL (1.8-7.7) 10/19/22 19: Lymph # (Auto) 1.1 10^3/uL (0.8-4.8) 10/19/22: [place] # (Auto) 0.2 10^3/uL (0.2-0.9) 10/19/22 19: Eos # (Auto) 0.1 10^3/uL (0.0-0.8) 10/19/22 19: Baso # (Auto) 0.0 10^3/uL (0.0-0.1) 10/19/22 19:02 Nucleated RBC % (auto) 0 % 10/19/22 19:02 Nucleated RBCs # 0.0 /100WBC 10/19/22 19:02 Sodium 138 mmol/L (136-145) 10/19/22 19:02 Potassium 3.9 mmol/L (3.5-5.1) 10/19/22 19:02 Chloride 102 mmol/L (98-107) 10/19/22 19:02 Carbon Dioxide 27 mmol/L (22-29) 10/19/22 19:02 Anion Gap 12.9 (5-19) 10/19/22 19:02 BUN 14 mg/dL (8-23) 10/19/22 19:02 Creatinine 0.7 mg/dL (0.5-0.9) 10/19/22 19:02 GFR Calculation 84.8 mL/min (90-130) L 10/19/22 19:02 Glucose 369 mg/dL (65-115) H 10/19/22 19:02 Calculated Osmolality 302 mOsm/kg (285-295) H 10/19/22 19:02 Calcium 8.9 mg/dL (8.5-10.5) 10/19/22 19:02 Total Bilirubin 0.6 mg/dL (0.15-1.2) 10/19/22 19:02 AST 12 U/L (0-32) 10/19/22 19:02 ALT 10 U/L (0-33) 10/19/22 19:02 Alkaline Phosphatase 78 U/L (35-105) 10/19/22 19:02 Troponin T Baseline 22 ng/L (0-10) H 10/19/22 19:02 Troponin T 120 Minute 21.94 ng/L (0-10) H 10/19/22 20:49 Delta Troponin T -0.06 ABS# (0-10) L 10/19/22 20:49 Total Protein 5.9 g/dL (6.6-8.7) L 10/19/22 19:02 Albumin 3.8 g/dL (3.5-5.2) 10/19/22 19:02 Globulin 2.1 g/dL (1.3-4.6) 10/19/22 19:02 EKG Data EKG 1: I personally reviewed and interpreted this EKG as follows: EKG interpretation date: 10/19/22 EKG interpretation time: 19:04 Interpretation: nsr hr [address] or t wave abnormalities qrs 104 qtc 356 Discharge Plan Discharge Patient Disposition: Home Clinical Impression: Thoracic back pain Condition: Stable Prescriptions: No Action atorvastatin 20 mg tablet 20 mg PO DAILY glipizide 10 mg tablet 10 mg PO BID azathioprine 50 mg tablet 50 mg PO DAILY citalopram 20 mg tablet 20 mg PO DAILY cyanocobalamin (vitamin B-12) 1,000 mcg/mL solution See Rx Instructions .ROUTE .COMPLEX Rx Instructions: INJECTION ONCE PER MONTH. GET SHOT ON THE . pyridostigmine bromide 60 mg tablet 60 mg PO QID metformin 500 mg tablet extended release 24 hr 1,000 mg PO BID Euthyrox 112 mcg tablet 100 mcg PO DAILY Rx Instructions: PT STATES THAT HER DOCTOR CHANGED HER DOSE TO 100 MCG DAILY Januvia 100 mg tablet 100 mg PO DAILY benzonatate 100 mg capsule 100 mg PO TID PRN (Reason: cough) Qty: 30 0RF Discharge Orders: Discharge ED (Routine); Ordered 10/19/22 Ordered By: Celina Knight Referrals: Ursula Pollard MD [Primary Care Provider] - 1-3 days Discharge Diet: Advance as tolerated Discharge Activity: Resume usual activity Patient Instructions: Back Pain (ED) Coding Level of Care Code ED Fire Extinguisher Tester for Marcieg Avinash
[2022-10-19 19:12] LABS: Basophils % 0.6 %; Eosinophils # 0.1 10^3/uL (0.0-0.8); Eosinophils % 2.2 %; Hematocrit 30.4 % (37.0-47.0); Hemoglobin 10.4 g/dL (11.5-15.3); Lymphocytes # 1.1 10^3/uL (0.8-4.8); Mean Corpuscular HGB Conc 34.2 g/dL (30.0-36.0); Mean Corpuscular Volume 90.7 fl (81-99); Mean Platelet Volume 10.3 fL (7.4-10.4); Monocytes # 0.2 10^3/uL (0.2-0.9); Monocytes % 6.9 %; Neutrophils # 1.84 10^3/uL (1.8-7.7); Neutrophils % 57.3 %; Nucleated Red Blood Cells % 0 %; Platelet Count 146 10^3/cmm (130-400); Red Blood Count 3.35 10^6/uL (4.1-5.3); Red Cell Distribution Width 13.6 % (12.1-15.1); White Blood Count 3.2 10^3/uL (4.0-10.0)
[2022-10-19 19:29] LABS: Alanine Aminotransferase 10 U/L (0-33); Albumin Level 3.8 g/dL (3.5-5.2); Alkaline Phosphatase 78 U/L (35-105); Anion Gap 12.9 (5-19); Aspartate Amino Transferase 12 U/L (0-32); Blood Urea Nitrogen 14 mg/dL (8-23); Calcium 8.9 mg/dL (8.5-10.5); Carbon Dioxide 27 mmol/L (22-29); Chloride 102 mmol/L (98-107); Creatinine Clr Calc Pharmacy 75.3447; Globulin 2.1 g/dL (1.3-4.6); Glomerular Filtration Rate 84.8 mL/min (90-130); Glucose 369 mg/dL (65-115); Osmolality Calculated 302 mOsm/kg (285-295); Potassium 3.9 mmol/L (3.5-5.1); Sodium 138 mmol/L (136-145); Total Bilirubin 0.6 mg/dL (0.15-1.2); Total Protein 5.9 g/dL (6.6-8.7)
[2022-10-19 19:31] LABS: Troponin(5th) Baseline 22 ng/L (0-10)
[2022-10-19 19:50] VITALS: BP 129/79; PULSE 76; RESP 18; O2SAT 99
[2022-10-19 20:42] VITALS: BP 166/97; RESP 19; O2SAT 99
[2022-10-19] MEDS: ondansetron 2 mg/ML SDV 2 mL 4 MG IVP (20:46)
--- NOTE | 2022-10-19 20:47 | CTR_ITS ---
PROCEDURE INFORMATION: Exam: CTA Chest With Contrast Exam date and time: 10/19/2022 9:27 PM Age: 61 years old Clinical indication: Pain; Shortness of breath; Chest pressure; Additional info: Cp TECHNIQUE: Imaging protocol: Computed tomographic angiography of the chest with contrast. Exam focused on the arteries. 3D rendering (Not supervised by radiologist): MIP and/or 3D reconstructed images were created by the technologist. Radiation optimization: All CT scans at this facility use at least one of these dose optimization techniques: automated exposure control; mA and/or kV adjustment per patient size (includes targeted exams where dose is matched to clinical indication); or iterative reconstruction. Contrast material: OMNI 350; Contrast volume: 100 ml; Contrast route: INTRAVENOUS (IV); REPORTING DATA: Count of CT and Cardiac NM exams in prior 12 months: This patient has received 0 known CTs and 0 known cardiac nuclear medicine studies in the 12 months prior to the current study. COMPARISON: CR (CHEST, ) 10/19/2022 7:07 PM RADIATION DOSE METRICS: Total DLP (mGy-cm): 352.37 FINDINGS: Pulmonary arteries: Normal. No pulmonary emboli. Aorta: Unremarkable. No aortic aneurysm. No aortic dissection. Lungs: 4 mm left lower lobe nodule. Mild mosaic attenuation in both lungs, consistent with mild air trapping. Mild atelectasis in the lingula. No consolidation. Pleural spaces: Unremarkable. No pneumothorax. No pleural effusion. Heart: Unremarkable. No cardiomegaly. No pericardial effusion. Lymph nodes: Calcified left hilar lymph nodes. Pancreas: Atrophic pancreas. Spleen: Calcified granulomas in the spleen. Kidneys and ureters: Hypodense lesions in both kidneys are too small to characterize but are most likely cysts. No follow-up imaging is recommended. Bones/joints: Mild degenerative changes of the spine. No fracture. Soft tissues: Unremarkable. CT/CT angio chest PE protcl [id number] IMPRESSION: 1. No acute findings. 2. 4 mm left pulmonary nodule. For patients at low risk (minimal or absent history of smoking and of other known risk factors), no routine follow-up is indicated. For patients at high risk (history of smoking or of other known risk factors), consider optional CT Chest at 12 months. (Reference: Whit) References: Whit Kaufman et al. Guidelines for Management of Incidental Pulmonary Nodules Detected on CT Images: From the Fleischner Society 2017. Radiology. 2017;284(1):228-243. COMMENTS: Consistent with the [place] [employer]'s Incidental Findings Committee white paper (J Am Prerna Radiol 2018): Any incidental renal lesion less than 1 cm or classified as too small to characterize, or any incidental cystic renal lesion characterized as simple-appearing, is likely benign. No follow-up imaging is recommended for these lesions per consensus recommendations based on imaging criteria.
--- NOTE | 2022-10-19 20:56 | ECG_ITS ---
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 Measurements Intervals [place] Rate: 88 P: 60 SC: 172 QRS: -3 QRSD: 94 T: 41 QT: 296 QTc: 358 Interpretive Statements SINUS RHYTHM NONSPECIFIC T-WAVE ABNORMALITY Compared to ECG 10/19/2022 19:04:59 No significant changes Electronically Signed On 10-20-2022 6:50:18 CDT by Brianna An M.D. [id number]
[2022-10-19] MEDS: ALPRAZolam 0.5 mg Tablet PO (21:08)
[2022-10-19 21:11] LABS: Troponin 5 2HR 21.94 ng/L (0-10); Troponin 5 2HR Delta -0.06 ABS# (0-10)
[2022-10-19 21:12] VITALS: RESP 16; O2SAT 99
[2022-10-19] MEDS: iohexol 350 mg/mL 500 mL Btl (per mL) IV (21:31)
[2022-10-19] MEDS: acetaminophen 500 mg Tablet 1000 MG PO (21:44)
[2022-10-19 22:07] VITALS: PULSE 73; RESP 16; O2SAT 99
== END 2022-10-19 22:08 | disposition home or self-care (01) ==
PROVIDERS: Emergency Provider Emergency Medicine; PCP Internal Medicine
DX: M54.6 Pain in thoracic spine (principal); Z79.84 Long term (current) use of oral hypoglycemic drugs; E11.9 Type 2 diabetes mellitus without complications
CPT/HCPCS: 71045; 71275; 80053; 84484; 85025; 93005; 96374; 99285; J2405; Q9967

== ENCOUNTER 2022-10-22 08:30 | Emergency (ER) | payer MEDICARE, OTHER, SELFPAY ==
[2022-10-22] VITALS (7 sets, daily range): BP systolic 127–190; BP diastolic 73–111; PULSE 87–96; RESP 16; TEMP 36.8; O2SAT 98–100; BMI 27.4
--- NOTE | 2022-10-22 08:48 | XR_ITS ---
WS: [id number] THORACIC SPINE TECHNIQUE: 3 views of the thoracic spine CLINICAL INFORMATION: pain COMPARISON: CT 10/19/2022 FINDINGS: Osteopenia. Mild thoracic curve convex RIGHT. Anterior hypertrophic changes mid thoracic spine. Sligh t chronic anterior wedging of the midthoracic spine. No acute appearing compression fractures. Mild d isc space narrowing midthoracic spine. No other suspicious findings. IMPRESSION: No acute thoracic spine findings
--- NOTE | 2022-10-22 08:58 | ED_ITS ---
HPI - General Adult General: Chief complaint: General Medical Stated complaint: high bp Time Seen by Provider: 10/22/22 08:36 Source: patient Mode of arrival: ambulatory History of Present Illness: 61-year-old female presents emergency room with complaint of upper back pain. She is also had elevated blood pressure. She was here about [address] of her chest at that time was done was negative for PE is thought to be muscul oskeletal. This morning she noticed significant increase in her blood pressure she not had any new or different weakness. She does have myasthenia gravis. She is also on multiple falls which precipitated her back pain visit initially. She is not on any antihypertensives she is not having any chest pain. Pain is reproducible on palpation of the back. Onset (ago): day(s) Location: back Severity: moderate Pain Consistency: constant Relieving factors: none Exacerbating factors: none Associated symptoms: Deny chest pain, confusion, cough, diaphoresis, decreased appetite, dyspnea, fevers/chills, headache(s), malaise, nausea, rash, palpitations, seizures, short of breath, syncope, vomiting or weakness Review of Systems Const: Denies: fever(s), chills, malaise or diaphoresis Card: Denies: chest pain, palpitations or syncope Resp: Denies: dyspnea GI: Denies: abdominal pain, nausea or vomiting : Denies: dysuria, urinary frequency or urinary urgency Musc: Reports: back pain (Thoracic) Skin/Breast: Denies: rash Neuro: Denies: headache(s) or confusion [facility] ED PFSH: Medical History Diabetes Hypothyroidism Myasthenia Social History Smoking and tobacco status: never smoked Alcohol intake: never Substance/Drug Use: never Physical Exam Const: GENERAL APPEARANCE: cooperative and comfortable ORIENTATION/CONSCIOUSNESS: Yes awake, Yes oriented to person, Yes oriented to place and Yes oriented to time HENMT: COMMON NORMALS: normocephalic, atraumatic and hearing grossly normal bilaterally HEAD & SCALP: normocephalic and atraumatic Resp: COMMON NORMALS: normal respiratory effort, No retractions, No use of accessory muscles and clear to auscultation bilaterally AUSCULTATION: clear to auscultation bilaterally Cardio: COMMON NORMALS: regular rate, regular rhythm and No murmurs present (Cardio) RATE: regular rate RHYTHM: regular rhythm GI: COMMON NORMALS: Soft to palpation and No hepatosplenomegaly present AUSCULTATION: Yes normoactive bowel sounds PALPATION: Yes Soft to palpation, No Tenderness to palpation present (GI), No Guarding due to palpation present (GI) and Yes No hepatosplenomegaly present Back/Pelvis: OTHER: Reproducible back pain at the T5-6 level most notable just to the left of the spinous process Extremity: COMMON NORMALS: normal to inspection, capillary refill normal, no clubbing, cyanosis or edema, no calf tenderness and no pedal edema Neuro: SENSORIUM/ORIENTATION: Yes oriented to person, Yes oriented to place and Yes oriented to time Skin: COMMON NORMALS: no rashes or lesions noted GENERAL SKIN EXAM: no rashes or lesions noted Course Vital Signs: Vital signs: Vital Signs Temperature 98.2 F 10/22/22 08:40 Pulse Rate 90 10/22/22 12:24 Respiratory Rate 16 10/22/22 08:40 Blood Pressure 140/76 10/22/22 12:24 Pulse Oximetry 98 10/22/22 12:24 Oxygen Delivery Me thod Room Air 10/22/22 11:00 [facility] - General Adult Medical Decision Making Patient complaining of back pain and point tenderness at the T3 4-6 level with the left paraspinal muscles there is no evidence of rash or skin breakdown no evidence of zoster. Pain is reproducible. Blood pressure is also markedly e levated. She declined most of the medications we offered because she was concerned they would interact poorly because of her myasthenia gravis. Blood pressure did improve with hydralazine will discharge home with hydralazine give her tramadol for pain. CT from previous visit reviewed did not show any acute thoracic spine pathology repeat x-ray today did not show any loss of vertebral height or developing compression fractures. Follow-up with primary care neurology return if has uncontrolled pain or uncontrolled blood pressure. Medical Records I reviewed the patient's medical records. Lab Data I reviewed the patient's lab results. 10/22/22 09:05 10/22/22 09:05 Laboratory Results WBC 2.75 10^3/uL (3.29-11.43) L 10/22/22 09:05 RBC 3.60 10^6/uL (3.85-5.65) L 10/22/22 09:05 Hgb 11.00 g/dL (11.27-16.99) L 10/22/22 09:05 Hct 33.0 % (36-47) L 10/22/22 09:05 MCV 91.7 fl (85-98) 10/22/22 09:05 MCH 30.6 pg (27-33) 10/22/22 09:05 MCHC 33.3 g/dL (30-55) 10/22/22 09:05 RDW 13.8 % (12.1-15.1) 10/22/22 09:05 Plt Count 134 10^3/cmm (157-399) L 10/22/22 09:05 MPV 10.1 fL (7.4-10.4) 10/22/22 09:05 Neut % (Auto) 57.4 % 10/22/22 09:05 Lymph % (Auto) 30.2 % 10/22/22 09:05 Sullivan % (Auto) 8.4 % 10/22/22 09:05 Eos % (Auto) 2.9 % 10/22/22 09:05 Baso % (Auto) 1.1 % 10/22/22 09:05 Neut # (Auto) 1.58 10^3/uL (1.8-7.7) L 10/22/22 09:05 Lymph # (Auto) 0.8 10^3/uL (0.8-4.8) 10/22/22 09:05 Sullivan # (Auto) 0.2 10^3/uL (0.2-0.9) 10/22/22 09:05 Eos # (Auto) 0.1 10^3/uL (0.0-0.8) 10/22/22 09:05 Baso # (Auto) 0.0 10^3/uL (0.0-0.1) 10/22/22 09:05 Nucleated RBC % (auto) 0 % 10/22/22 09:05 Nucleated RBCs # 0.0 /100WBC 10/22/22 09:05 Sodium 137 mmol/L (136-145) 10/22/22 09:05 Potassium 4.0 mmol/L (3.5-5.1) 10/22/22 09:05 Chloride 100 mmol/L (98-107) 10/22/22 09:05 Carbon Dioxide 29 mmol/L (22-29) 10/22/22 09:05 Anion Gap 12.0 (5-19) 10/22/22 09:05 BUN 12 mg/dL (8-23) 10/22/22 09:05 Creatinine 0.6 mg/dL (0.5-0.9) 10/22/22 09:05 GFR Calculation 101.3 mL/min (90-130) 10/22/22 09:05 Glucose 246 mg/dL (65-115) H 10/22/22 09:05 Calculated Osmolality 292 mOsm/kg (285-295) 10/22/22 09:05 Calcium 9.6 mg/dL (8.5-10.5) 10/22/22 09:05 Total Bilirubin 0.7 mg/dL (0.15-1.2) 10/22/22 09:05 AST 21 U/L (0-32) 10/22/22 09:05 ALT 13 U/L (0-33) 10/22/22 09:05 Alkaline Phosphatase 88 U/L (35-105) 10/22/22 09:05 Total Protein 7.1 g/dL (6.6-8.7) 10/22/22 09:05 Albumin 3.9 g/dL (3.5-5.2) 10/22/22 09:05 Globulin 3.2 g/dL (1.3-4.6) 10/22/22 09:05 Discharge Plan Discharge Patient Disposition: Home Clinical Impression: Thoracic back pain, Hypertension Condition: Stable Prescriptions: New hydralazine 25 mg tablet 25 mg PO TID Qty: 60 0RF tramadol 50 mg tablet 50 mg PO Q6H PRN (Reason: pain) Qty: 14 0RF No Action atorvastatin 20 mg tablet 20 mg PO DAILY glipizide 10 mg tablet 10 mg PO BID azathioprine 50 mg tablet 50 mg PO BID citalopram 20 mg tablet 20 mg PO DAILY cyanocobalamin (vitamin B-12) 1,000 mcg/mL solution See Rx Instructions .ROUTE .COMPLEX Rx Instructions: INJECTION ONCE PER MONTH. GET SHOT ON THE 12TH. pyridostigmine bromide 60 mg tablet 60 mg PO QID metformin 500 mg tablet extended release 24 hr 1,000 mg PO BID levothyroxine [Euthyrox] 112 mcg tablet 112 mcg PO DAILY ondansetron HCl 4 mg tablet 4 mg PO TID PRN (Reason: Nausea) prednisone 5 mg tablet 5 mg PO DAILY Vitamin D3 50 mcg (2,000 unit) Capsule 50 mcg PO DAILY Discharge Orders: Discharge ED (Routine); Ordered 10/22/22 Ordered By: Kev Ureña Referrals: Ursula Pollard MD [Primary Care Provider] - Discharge Diet: Usual diet Discharge Activity: Increase activity as tolerated Patient Instructions: Opioid Safety, Pain Management Activity Restrictions/Additional Instructions: You are seen today for thoracic back pain and elevated blood pressure. Your blood pressure did not improved with the medicines that you were given. You are given a prescription for hydralazine for blood pressure and tramadol for pain. These medications are compatible with your myasthenia gravis. Follow-up with your primary care doctor within the week. Coding Level of Care Code ED Raspberry Checker for Adolfo Da Silva
[2022-10-22 09:12] LABS: Basophils % 1.1 %; Eosinophils # 0.1 10^3/uL (0.0-0.8); Eosinophils % 2.9 %; Lymphocytes # 0.8 10^3/uL (0.8-4.8); Lymphocytes % 30.2 %; Mean Corpuscular HGB Conc 33.3 g/dL (30-55); Mean Corpuscular Hemoglobin 30.6 pg (27-33); Mean Corpuscular Volume 91.7 fl (85-98); Mean Platelet Volume 10.1 fL (7.4-10.4); Monocytes # 0.2 10^3/uL (0.2-0.9); Monocytes % 8.4 %; Neutrophils # 1.58 10^3/uL (1.8-7.7); Neutrophils % 57.4 %; Nucleated Red Blood Cells % 0 %; Platelet Count 134 10^3/cmm (157-399); Red Cell Distribution Width 13.8 % (12.1-15.1); White Blood Count 2.75 10^3/uL (3.29-11.43)
[2022-10-22 09:30] LABS: Alanine Aminotransferase 13 U/L (0-33); Albumin Level 3.9 g/dL (3.5-5.2); Alkaline Phosphatase 88 U/L (35-105); Aspartate Amino Transferase 21 U/L (0-32); Blood Urea Nitrogen 12 mg/dL (8-23); Calcium 9.6 mg/dL (8.5-10.5); Carbon Dioxide 29 mmol/L (22-29); Chloride 100 mmol/L (98-107); Creatinine Clr Calc Pharmacy 87.9021; Globulin 3.2 g/dL (1.3-4.6); Glomerular Filtration Rate 101.3 mL/min (90-130); Glucose 246 mg/dL (65-115); Osmolality Calculated 292 mOsm/kg (285-295); Sodium 137 mmol/L (136-145); Total Bilirubin 0.7 mg/dL (0.15-1.2); Total Protein 7.1 g/dL (6.6-8.7)
[2022-10-22] MEDS: hyDRALAzine 20 mg/mL INJ 1 mL 10 MG IVP (09:54)
--- NOTE | 2022-10-22 10:14 | PC.PHAR ---
PT STATES HAS NOT PICKED UP ONDANSETRON 4 MG YET, AND TAKES PREDNISONE 5 MG DAILY, ALSO TAKES VITAMIN D3 2000 UNITS DAILY.
== END 2022-10-22 12:20 | disposition home or self-care (01) ==
PROVIDERS: Emergency Provider Family Medicine; PCP Internal Medicine
DX: M54.6 Pain in thoracic spine (principal); I10 Essential (primary) hypertension; Z79.84 Long term (current) use of oral hypoglycemic drugs; E11.9 Type 2 diabetes mellitus without complications
CPT/HCPCS: 72072; 80053; 85025; 96374; 99284; J0360; J3490

== ENCOUNTER 2022-10-28 17:12 | Emergency (ER) | payer MEDICARE, OTHER, SELFPAY ==
[2022-10-28 17:15] VITALS: BP 151/75; PULSE 90; RESP 16; TEMP 36.8; O2SAT 98
--- NOTE | 2022-10-28 17:40 | ECG_ITS ---
[facility] Test Date: 2022-10-28 Pat Name: Pia Osborn Department: Room: Gender: Female Salvager: : 1960 Requested By: Vitaly Cohen Order Number: [id number] Melchor MD: Ishan Martinez M.D. Measurements Intervals [place] Rate: 82 P: 18 TX: 172 QRS: -10 QRSD: 101 T: 102 QT: 367 QTc: 430 Interpretive Statements SINUS RHYTHM MINIMAL VOLTAGE CRITERIA FOR LVH, CONSIDER NORMAL VARIANT [MEETS CRITERIA IN ONE OF: R(aVL), S(V1), R(V5), R(V5/V6)+S(V1)] NONSPECIFIC T-WAVE ABNORMALITY Compared to ECG 10/19/2022 20:54:00 No significant changes Electronically Signed On 10-29-2022 6:48:41 CDT by Ishan Martinez M.D. [email or web address]
--- NOTE | 2022-10-28 17:58 | W.ED.WEAKNES ---
HPI - Weakness General: Chief complaint: Weakness Stated complaint: weakness Time Seen by Provider: 10/28/22 17:39 History of Present Illness: 61-year-old female comes in today with complaints of nausea and vomiting starting about noon today. Patient thinks that it may be due to her blood pressure being elevated. Patient believes that due to her shoulder pain in the left shoulder from an injury is what is causing her blood pressure to be high . Patient has been using hydralazine 3 times a day to help control her blood pressure with good results. Patient appears nontoxic. Patient is guarded about using pain medication. Patient has a history of myasthenia gravis, hyper cholesterol, depression, hypertension, diabetes mellitus type 2. Associated symptoms: Reports nausea and vomiting; Denies chest pain or fever(s) Review of Systems General: Reports: 10 or more systems reviewed and unremarkable except in HPI and below Const: Denies: fever(s) ENMT: Denies: throat pain Card: Denies: chest pain Resp: Denies: dyspnea GI: Reports: nausea and vomiting; Denies: diarrhea or constipation : Reports: difficulty voiding Musc: Reports: joint pain (Left shoulder) Skin/Breast: Denies: rash PFSH ED PFSH: Medical History Diabetes Hypothyroidism Myasthenia Social History Smoking and tobacco status: never smoked Alcohol intake: never Substance/Drug Use: never Physical Exam Const: COMMON NORMALS: alert HENMT: COMMON NORMALS: normocephalic HEAD & SCALP: normocephalic Neck/C-Spine: COMMON NORMALS: full ROM Resp: COMMON NORMALS: normal respiratory effort and clear to auscultation bilaterally AUSCULTATION: clear to auscultation bilaterally Cardio: COMMON NORMALS: regular rate and regular rhythm RATE: regular rate RHYTHM: regular rhythm GI: COMMON NORMALS: Soft to palpation and non-tender PALPATION: Yes Soft to palpation Extremity: LEFT UPPER EXTREMITY: Yes shoulder joint (Posterior shoulder tenderness) Left shoulder joint: Yes ROM (Pain with range of motion) and Yes neurovascular exam (Reports numbness to fingers) Neuro: SENSORIUM/ORIENTATION: Yes alert Skin: COMMON NORMALS: turgor normal GENERAL SKIN EXAM: turgor normal Course Vital Signs: Vital signs: Vital Signs Temperature 98.2 F 10/28/22 17:15 Pulse Rate 90 10/28/22 17:15 Respiratory Rate 16 10/28/22 17:15 Blood Pressure 151/75 10/28/22 17:15 Pulse Oximetry 98 10/28/22 17:15 Oxygen Delivery Me thod Room Air 10/28/22 17:15 MDM - Weakness Medical Decision Making 61-year-old female with a history of myasthenia gravis comes in today for complaints of headache, nausea starting this afternoon. Patient appears nontoxic. Patient appears in mild pain. Patient does have occasional nausea. Patient has been able to take her hydralazine and ondansetron just prior to coming to the ER with some improvement in her nausea and blood pressure since arrival to the ER. Patient reports her blood pressure was 180 at home but now is 150 systolic. Remainder of vital signs are normal. Differential diagnosis includes but not limited to gastroenteritis, nausea/vomiting, adverse drug effect, myasthenia gravis, malingering, hypertension emergency, electrolyte disturbance. CBC showed a stable blood count with not any significant changes. Spoke with sons regarding her symptoms. We reviewed previous labs and imaging where she has had a rule out for a PE or other abnormalities. Sons report that she really had not been throwing up that much and they are not concerned about her electrolytes and would like to go ahead and take her home. I did give her 2 oxycodone 5 mg tablets 1 for here 1 for home if needed for her persistent left shoulder pain. Patient and son both agreed to this plan. We will contact patient if any significant abnormalities are noted on the CMP. Patient was discharged home. Lab Data 10/28/22 18:25 10/28/22 18:25 Laboratory Results WBC 3.04 10^3/uL (3.29-11.43) L 10/28/22 18:25 RBC 3.28 10^6/uL (3.85-5.65) L 10/28/22 18:25 Hgb 9.80 g/dL (11.27-16.99) L 10/28/22 18:25 Hct 29.9 % (36-47) L 10/28/22 18:25 MCV 91.2 fl (85-98) 10/28/22 18:25 MCH 29.9 pg (27-33) 10/28/22 18:25 MCHC 32.8 g/dL (30-55) 10/28/22 18:25 RDW 14.1 % (12.1-15.1) 10/28/22 18:25 Plt Count 146 10^3/cmm (157-399) L 10/28/22 18:25 MPV 11.2 fL (7.4-10.4) H 10/28/22 18:25 Neut % (Auto) 64.5 % 10/28/22 18:25 Lymph % (Auto) 24.3 % 10/28/22 18:25 [place] % (Auto) 8.2 % 10/28/22 18:25 Eos % (Auto) 2.0 % 10/28/22 18:25 Baso % (Auto) 0.7 % 10/28/22 18:25 Neut # (Auto) 1.96 10^3/uL (1.8-7.7) 10/28/22 18:25 Lymph # (Auto) 0.7 10^3/uL (0.8-4.8) L 10/28/22 18:25 [place] # (Auto) 0.3 10^3/uL (0.2-0.9) 10/28/22 18:25 Eos # (Auto) 0.1 10^3/uL (0.0-0.8) 10/28/22 18:25 Baso # (Auto) 0.0 10^3/uL (0.0-0.1) 10/28/22 18:25 Nucleated RBC % (auto) 0 % 10/28/22 18:25 Nucleated RBCs # 0.0 /100WBC 10/28/22 18:25 EKG Data EKG 1: EKG interpretation date: 10/28/22 EKG interpretation time: 19:06 Prior EKG tracings: not available for review Interpretation: EKG shows a sinus rhythm with a regular rate at [address] elevation or ectopy otherwise is noted. Prior exam was not available for comparison. Computer generated interpretation: Sinus rhythm, minimal voltage criteria for LVH, consider normal variant, nonspecific T wave abnormality, abnormal EKG, data quality may affect interpretation, unconfirmed report. Discharge Plan Discharge Patient Disposition: Home Clinical Impression: Weakness, Myasthenia gravis Anemia Qualifiers: Anemia type: unspecified type Qualified Code(s): D64.9 - Anemia, unspecified Condition: Stable Prescriptions: No Action atorvastatin 20 mg tablet 20 mg PO DAILY glipizide 10 mg tablet 10 mg PO BID azathioprine 50 mg tablet 50 mg PO BID citalopram 20 mg tablet 20 mg PO DAILY cyanocobalamin (vitamin B-12) 1,000 mcg/mL solution See Rx Instructions .ROUTE .COMPLEX Rx Instructions: INJECTION ONCE PER MONTH. GET SHOT ON THE 12TH. pyridostigmine bromide 60 mg tablet 60 mg PO QID metformin 500 mg tablet extended release 24 hr 1,000 mg PO BID levothyroxine [Euthyrox] 112 mcg tablet 112 mcg PO DAILY ondansetron HCl 4 mg tablet 4 mg PO TID PRN (Reason: Nausea) prednisone 5 mg tablet 5 mg PO DAILY Vitamin D3 50 mcg (2,000 unit) Capsule 50 mcg PO DAILY hydralazine 25 mg tablet 25 mg PO TID Qty: 60 0RF tramadol 50 mg tablet 50 mg PO Q6H PRN (Reason: pain) Qty: 14 0RF Discharge Orders: Discharge ED (Routine); Ordered 10/28/22 Ordered By: Vitaly Nguyen Referrals: Ursula Pollard MD [Primary Care Provider] - Discharge Diet: Usual diet Patient Instructions: Weakness (Generalized) Activity Restrictions/Additional Instructions: Home and rest. Continue with routine medications. Follow-up with primary care for further instructions. Return to ED for high fever greater than 100.4, persistent nausea and vomiting, blood in vomit or stool, or new concerns. Coding Level of Care Code ED Candy Puller for Adolfo Da Silva
[2022-10-28] MEDS: acetaminophen 500 mg Tablet 1000 MG PO (18:08)
[2022-10-28] MEDS: pyridostigmine 60 mg Tablet PO (18:08)
[2022-10-28] MEDS: sodium chloride 0.9% 250 ML IV (18:09)
[2022-10-28 19:09] LABS: Basophils % 0.7 %; Eosinophils # 0.1 10^3/uL (0.0-0.8); Hematocrit 29.9 % (36-47); Lymphocytes # 0.7 10^3/uL (0.8-4.8); Lymphocytes % 24.3 %; Mean Corpuscular HGB Conc 32.8 g/dL (30-55); Mean Corpuscular Hemoglobin 29.9 pg (27-33); Mean Corpuscular Volume 91.2 fl (85-98); Mean Platelet Volume 11.2 fL (7.4-10.4); Monocytes # 0.3 10^3/uL (0.2-0.9); Monocytes % 8.2 %; Neutrophils # 1.96 10^3/uL (1.8-7.7); Neutrophils % 64.5 %; Nucleated Red Blood Cells % 0 %; Platelet Count 146 10^3/cmm (157-399); Red Blood Count 3.28 10^6/uL (3.85-5.65); Red Cell Distribution Width 14.1 % (12.1-15.1); White Blood Count 3.04 10^3/uL (3.29-11.43)
[2022-10-28 19:27] LABS: Alanine Aminotransferase 8 U/L (0-33); Albumin Level 3.4 g/dL (3.5-5.2); Alkaline Phosphatase 67 U/L (35-105); Aspartate Amino Transferase 15 U/L (0-32); Blood Urea Nitrogen 16 mg/dL (8-23); Calcium 8.6 mg/dL (8.5-10.5); Carbon Dioxide 21 mmol/L (22-29); Chloride 105 mmol/L (98-107); Globulin 2.6 g/dL (1.3-4.6); Glomerular Filtration Rate 84.8 mL/min (90-130); Glucose 211 mg/dL (65-115); Osmolality Calculated 291 mOsm/kg (285-295); Sodium 137 mmol/L (136-145); Total Bilirubin 0.6 mg/dL (0.15-1.2)
[2022-10-28 19:34] LABS: Anion Gap 14.6 (5-19); Potassium 3.6 mmol/L (3.5-5.1)
== END 2022-10-28 19:30 | disposition home or self-care (01) ==
PROVIDERS: Emergency Provider Nurse Practitioner Family; PCP Internal Medicine
DX: D64.9 Anemia, unspecified (principal); G70.00 Myasthenia gravis without (acute) exacerbation; Z79.84 Long term (current) use of oral hypoglycemic drugs; E11.9 Type 2 diabetes mellitus without complications
CPT/HCPCS: 80053; 85025; 93005; 99284; J7050

== ENCOUNTER 2022-12-23 12:40 | Outpatient (CLI) | payer MEDICARE, OTHER, SELFPAY ==
--- NOTE | 2022-12-23 12:49 | XR_ITS ---
WS: [id number] DEXA (DUAL ENERGY X-RAY ABSORPTIOMETRY) Bone mineral density was performed using a ParkerVision machine. HISTORY: OSTEOPOROSIS COMPARISON: None available. Lumbar spine BMD (L1-L4): 0.847 g/cm2 T score: -2.8 Z score: -1.5 Total hip BMD: Right: 0.671. T score: -2.7 Z score: -1.7 Left forearm BMD: 0.567 g/cm2. T score: -3.5 Z score: -2.3 10 year probability of a major osteoporotic fracture is 42.7%. IMPRESSION: OSTEOPOROSIS Based upon the WHO classification for females.
== END 2022-12-23 12:41 | disposition home or self-care (01) ==
LOC: RAD 12:41
PROVIDERS: PCP Internal Medicine; Visit Provider Nurse Practitioner Family
DX: M81.8 Other osteoporosis without current pathological fracture (principal)
CPT/HCPCS: 77080

== ENCOUNTER 2024-03-17 14:05 | Outpatient (CLI) | payer MEDICARE, OTHER, SELFPAY ==
--- NOTE | 2024-03-17 14:10 | MM_ITS ---
WS: [id number] BILATERAL 3D TOMOSYNTHESIS DIGITAL SCREENING MAMMOGRAPHY WITH CAD CLINICAL INFORMATION: SCREENING HISTORY: Screening mammogram. No current complaints. COMPARISON: 2020 TECHNIQUE: Bilateral CC and MLO views. FINDINGS: Scattered fibroglandular densities bilaterally. Asymmetric nodular density anterior RIGHT breast best seen on the MLO view lateral to the nipple. Recommend further evaluation with RIGHT breast diagnosti c mammography and ultrasound if persistent. Incidental punctate and lucent centered calcifications. V ascular calcifications unremarkable LEFT breast.. MM/MM scr tomosynthesis [id number] IMPRESSION: DENSITY: There are scattered areas of fibroglandular density. BI-RADS: 0 - Incomplete: Need additional imaging evaluation. FOLLOW UP: Need Additional Imaging Recommend further evaluation with RIGHT breast diagnostic mammography and ultra sound if persistent.
== END 2024-03-17 14:06 | disposition home or self-care (01) ==
LOC: RAD 14:09
PROVIDERS: PCP Internal Medicine; Visit Provider Internal Medicine
DX: Z12.31 Encounter for screening mammogram for malignant neoplasm of breast (principal); R92.323 Mammographic fibroglandular density, bilateral breasts; R92.1 Mammographic calcification found on diagnostic imaging of breast; R92.8 Other abnormal and inconclusive findings on diagnostic imaging of breast
CPT/HCPCS: 77063; 77067

== ENCOUNTER 2024-04-06 11:02 | Outpatient (CLI) | payer MEDICARE, OTHER, SELFPAY ==
--- NOTE | 2024-04-06 | MM_ITS ---
WS: [id number] RIGHT 3D TOMOSYNTHESIS DIGITAL MAMMOGRAPHY WITH CAD CLINICAL INFORMATION: ABNORMAL MAMMOGRAM HISTORY: Additional views COMPARISON: 03/17/2024 TECHNIQUE: 3 views of the right breast were obtained. FINDINGS: Scattered fibroglandular densities of the right breast. Again seen is the small ovoid density at the 12 o'clock position areola. This partially compresses on spot compression views. Ultrasound is pending. ULTRASOUND BREAST RIGHT TECHNIQUE: Ultrasound right breast focused area of concern. CLINICAL INFORMATION: ABNORMAL MAMMOGRAM FINDINGS: Ultrasound RIGHT breast area of concern near the 12 o'clock position areola. No suspicious findings. No suspicious cystic or solid lesions to target for biopsy. Findings are benign. Recommend return to annual screening mammography. MM/MM diag RT tomosynthesis [id number] IMPRESSION: DENSITY: There are scattered areas of fibroglandular density. BI-RADS: 2 - Benign. FOLLOW UP: 1 Year Follow-up Recommend return to annual screening mammography.
--- NOTE | 2024-04-06 11:05 | US_ITS ---
WS: [id number] RIGHT 3D TOMOSYNTHESIS DIGITAL MAMMOGRAPHY WITH CAD CLINICAL INFORMATION: ABNORMAL MAMMOGRAM HISTORY: Additional views COMPARISON: 03/17/2024 TECHNIQUE: 3 views of the right breast were obtained. FINDINGS: Scattered fibroglandular densities of the right breast. Again seen is the small ovoid density at the 12 o'clock position areola. This partially compresses on spot compression views. Ultrasound is pending. ULTRASOUND BREAST RIGHT TECHNIQUE: Ultrasound right breast focused area of concern. CLINICAL INFORMATION: ABNORMAL MAMMOGRAM FINDINGS: Ultrasound RIGHT breast area of concern near the 12 o'clock position areola. No suspicious findings. No suspicious cystic or solid lesions to target for biopsy. Findings are benign. Recommend return to annual screening mammography. US/US breast RT limited* [id number] IMPRESSION: DENSITY: There are scattered areas of fibroglandular density. BI-RADS: 2 - Benign. FOLLOW UP: 1 Year Follow-up Recommend return to annual screening mammography.
== END 2024-04-06 11:03 | disposition home or self-care (01) ==
PROVIDERS: PCP Internal Medicine; Visit Provider Internal Medicine
DX: R92.8 Other abnormal and inconclusive findings on diagnostic imaging of breast (principal); R92.321 Mammographic fibroglandular density, right breast
CPT/HCPCS: 76642; 77061; G0279

== ENCOUNTER → 2024-04-10 14:04 | Outpatient (BNVA) | payer MEDICARE, OTHER, SELFPAY | PROVIDERS: PCP Internal Medicine; Referring Provider Nurse Practitioner Family; Visit Provider Nurse Practitioner Family | DX: L60.1 Onycholysis (principal); L98.1 Factitial dermatitis; L81.4 Other melanin hyperpigmentation; D22.62 Melanocytic nevi of left upper limb, including shoulder; L57.0 Actinic keratosis | CPT/HCPCS: 17000; 99203 ==

== ENCOUNTER 2024-04-11 12:50 | Oncology outpatient (recurring) (ONCR) | payer MEDICARE, OTHER, SELFPAY ==
--- NOTE | 2024-04-03 16:28 | PC.NURSE ---
[facility] order [facility] pt. No diagnosis on order. Called [facility], ordering physician. Spoke with Marilee. Verbal order of G70.01 myasthenia gravis for pt diagnosis.
[2024-04-11 13:33] VITALS: BP 115/73; PULSE 79; RESP 16; TEMP 36.6; O2SAT 98
[2024-04-11] MEDS: [UNRECOGNIZED DRUG - OTHER] 1008 MG SUBCUT (13:35)
[2024-04-11 14:03] VITALS: BP 117/73; PULSE 73; RESP 16; TEMP 37; O2SAT 99
--- NOTE | 2024-04-11 14:42 | PC.NURSE ---
Pt presented to infusion for initial injection of Vyvgart. Pt tolerated the slow push subcutaneous injection well, vitals remained stable throughout the mandatory required 30 minute observation period post injection. Pt stated she was feeling fine, no side effects upon discharge. Pt walked to her vehicle, felt sudden pain in her right eye, she described it as stabbing pain, like a fingernail was in my eye. Pt came back into infusion where she was assessed and transported to [facility] ER. Extensive swelling of the eyeball itself as well as redness continued to worsen along with patient stating she felt like it was starting in the left eye as well. Pt was checked in to [facility] ER and immediately taken to triage. Pt was stable when she was left with ER triage nurse. Departing vitals T98.6 R16 P73 B\P117/73 O2Sat 99%
--- NOTE | 2024-04-11 15:02 | PC.NURSE ---
Attempted to contact physician regarding patients reaction to Vyvgart injection. Per Kajal, escrow officer, there was not a nurse or doctor available. Detailed message was left with Kajal explaining the reaction as well as requesting information if patient is to continue to receive the ordered injections.
== END 2024-04-11 23:59 | disposition home or self-care (01) ==
PROVIDERS: PCP Internal Medicine; Visit Provider Psychiatry & Neurology Neurology
DX: G70.01 Myasthenia gravis with (acute) exacerbation (principal); Z79.899 Other long term (current) drug therapy
CPT/HCPCS: 96372; J9334

== ENCOUNTER 2024-04-11 14:31 | Emergency (ER) | payer MEDICARE, OTHER, SELFPAY ==
[2024-04-11 14:33] VITALS: BP 168/66; PULSE 72; TEMP 36.8; O2SAT 100; BMI 23.8
[2024-04-11 15:02] VITALS: BP 172/81; PULSE 71; RESP 16; O2SAT 98
--- NOTE | 2024-04-11 15:31 | W.ED.EYEPROB ---
HPI - Eye Problem General: Chief complaint: Eye Problems Stated complaint: reaction to infusion Time Seen by Provider: 04/11/24 14:58 History of Present Illness: 63-year-old female who presents to the emergency room with complaints of swelling and discomfort in her right eye. This began about 1/2-hour after she had received a infusion for myasthenia gravis - [place]. No trauma to the eye. She does have some watery she is able to close the eyes is not affected her vision. She is not on any anticoagulants. She has not recently had a cough cold fever no recent vomiting or coughing episodes. Related Data Home Medications ?Medication ?Instructions ?Recorded ?Confirmed azathioprine 50 mg tablet 50 mg PO BID 07/08/19 04/11/24 citalopram 20 mg tablet 20 mg PO DAILY 07/08/19 04/11/24 cyanocobalamin (vitamin B-12) See Rx Instructions .Route .COMPLEX 07/08/19 04/11/24 1,000 mcg/mL injection solution glipizide 10 mg tablet 10 mg PO BID 07/08/19 04/11/24 pyridostigmine bromide 60 mg tablet 60 mg PO QID 07/08/19 04/11/24 levothyroxine 100 mcg tablet 100 mcg PO DAILY 04/11/24 04/11/24 pramipexole 0.125 mg tablet See Rx Instructions .Route .COMPLEX 04/11/24 04/11/24 prednisone 10 mg tablet 10 mg PO DAILY 04/11/24 04/11/24 Allergies Allergy/AdvReac Type Severity Reaction Status Date / Time Aminoglycosides Allergy Unknown Verified 04/11/24 14:42 Beta-Blockers Allergy Unknown Verified 04/11/24 14:42 (Beta-Adrenergic Bloc Calcium Channel Blocking Allergy Unknown Verified 04/11/24 14:42 Agent Dilt Corticosteroids Allergy Unknown Verified 04/11/24 14:42 (Glucocorticoids) Interferons Allergy Unknown Verified 04/11/24 14:42 magnesium Allergy ALGY-Anaphy Verified 04/11/24 14:42 laxis metoclopramide (From Reglan) Allergy Unknown Verified 04/11/24 14:42 NSAIDS (Non-Steroidal Allergy Unknown Verified 04/11/24 14:42 Anti-Inflamma quinidine Allergy Unknown Verified 04/11/24 14:42 quinine Allergy Unknown Verified 04/11/24 14:42 succinylcholine Allergy Unknown Verified 04/11/24 14:42 narcotics Allergy Unknown Uncoded 04/11/24 14:42 Review of Systems Eyes: Reports: eye discomfort, increased production of tears and other; Denies: change in vision [facility] ED PFSH: Medical History Diabetes Myasthenia Hypothyroidism Social History Smoking and tobacco/nicotine status: never used tobacco/nicotine Alcohol intake: never Substance/Drug Use: never Physical Exam Eye: OTHER: Examination of the left eye shows significant conjunctival hematoma with raising of the sclera. The cornea is still intact and in place. Patient is able to visualize present on the [facility]ellen eye chart today showed her on my phone she gets the majority of the letters correct is a few localized letters she missed reads such as calling the [facility] Pupil is reactive extraocular movements are intact. There is no hyphema. No evidence of trauma to the eye. Course Vital Signs: Vital signs: Vital Signs Temperature 98.2 F 04/11/24 14:33 Pulse Rate 69 04/11/24 15:54 Respiratory Rate 16 04/11/24 15:02 Blood Pressure 175/72 04/11/24 15:54 Pulse Oximetry 96 04/11/24 15:54 Oxygen Delivery Me thod Room Air 04/11/24 15:02 MDM - Eye Problem Medical Decision Making She has not had any paroxysmal coughing fits no vomiting she is not on any anticoagulants.'s possible this occurred just from rubbing her eye although she does not particularly recall doing anything specific. Reviewed the package insert for the infusion that she received there is no associated side effects related to bleeding or ocular injury. I also discussed with the neurologist on-call he was unaware of any direct correlations between that medication and eye issues. Discussed with the patient subject conjunctival hematomas are usually allowed to resolve spontaneously. Because of the extent of it I will have her see the music professor that is on-call called the ophthalmology group they will see her in their office and be able to do more in-depth exam as they feel appropriate reviewed with the patient and her family. The address and phone number for [facility] was given on her discharge instructions. Her son is with her today and he is aware of where to find the office and will take her there. Medical Records I reviewed the patient's medical records. Lab Data I reviewed the patient's lab results. No radiology studies performed this visit Discharge Plan Discharge Patient Disposition: Home Clinical Impression: Subconjunctival hemorrhage Condition: Stable Prescriptions: No Action glipizide 10 mg tablet 10 mg PO BID azathioprine 50 mg tablet 50 mg PO BID citalopram 20 mg tablet 20 mg PO DAILY cyanocobalamin (vitamin B-12) 1,000 mcg/mL solution See Rx Instructions .ROUTE .COMPLEX Rx Instructions: INJECTION ONCE PER MONTH. GET SHOT ON THE 12TH. pyridostigmine bromide 60 mg tablet 60 mg PO QID prednisone 10 mg tablet 10 mg PO DAILY levothyroxine 100 mcg tablet 100 mcg PO DAILY pramipexole 0.125 mg tablet See Rx Instructions .ROUTE .COMPLEX Rx Instructions: TAKE 1 TABLET BY MOUTH ONCE DAILY IN THE EVENING 2-3 HOURS BEFORE BEDTIME. Discharge Orders: Discharge ED (Routine); Ordered 04/11/24 Ordered By: Kev Ureña Referrals: Brian Tapia MD [Physician] - (Proceed directly to Dr. Tapia's office from the emergency room. I have discussed with Dr. Small they will see you when you arrive at the clinic there.) Discharge Diet: Usual diet Discharge Activity: Resume usual activity Patient Instructions: Opioid Safety, Pain Management Activity Restrictions/Additional Instructions: Thank you for choosing [facility] for your healthcare needs today. It is very important that you follow up as instructed or that you return to the Emergency Department should you have concerns or if your condition changes or worsens in any way. You were seen in the emergency room after developing a subconjunctival hematoma in the right eye. These are usually associated with people on blood thinners who have fits of coughing or vomiting. Since these particular things do not apply to you not entirely certain what precipitated this. We did look up the medication you did receive the infusion on there is no listed adverse effects associated with the type of eye problem you were noted to have today. We talked to the on-call music professor. They will see you in their office immediately after you leave the emergency room. Typically with a subconjunctival hematoma it is allowed to reabsorb over time there is no other significant abnormalities noted. Print Language: Lao Coding Level of Care Code ED Sql [employer] Bi Developer for Adolfo Da Silva
[2024-04-11 15:54] VITALS: BP 175/72; PULSE 69; O2SAT 96
--- NOTE | 2024-04-11 16:10 | PC.NURSE ---
[facility] REQUESTING SIGNED DOCUMENTATION. NURSE INFORMED THEM THAT PHYSICIAN HAD COMPLETED NO CHARTING ON PATIENT AT THIS TIME.
== END 2024-04-11 15:55 | disposition home or self-care (01) ==
PROVIDERS: Emergency Provider Family Medicine; PCP Internal Medicine
DX: H11.31 Conjunctival hemorrhage, right eye (principal); E11.9 Type 2 diabetes mellitus without complications
CPT/HCPCS: 99281

== ENCOUNTER 2024-04-24 13:00 | Oncology outpatient (recurring) (ONCR) | payer MEDICARE, OTHER, SELFPAY ==
--- NOTE | 2024-04-18 10:40 | PC.NURSE ---
Multiple attempts to reach ordering physicians office for verification that the patient is to receive treatment today. I was placed on hold for 20 minutes, 27 minutes with no answer by staff. Physicians office was notified last week, after the first treatment, that the patient was transported to the ER related to a reaction in involving her right eye swelling and broken blood vessels. At the time of the call, Leila, stated there was not a nurse or physician at the office that she would relay the message, I explained at that time we would need clarification if the patient was to continue treatment. No response was provided. Pt fully understood the situation and was ok with being rescheduled.
[2024-04-24 13:21] VITALS: BP 129/76; PULSE 84; RESP 18; TEMP 36.4; O2SAT 96
[2024-04-24] MEDS: [UNRECOGNIZED DRUG - OTHER] 1008 MG SUBCUT (13:55)
[2024-04-24 14:30] VITALS: BP 118/68; PULSE 72; RESP 17; TEMP 36.4; O2SAT 98
== END 2024-04-24 23:59 | disposition home or self-care (01) ==
PROVIDERS: PCP Internal Medicine; Visit Provider Psychiatry & Neurology Neurology
DX: Z53.9 Procedure and treatment not carried out, unspecified reason; G70.00 Myasthenia gravis without (acute) exacerbation; Z79.899 Other long term (current) drug therapy
CPT/HCPCS: 96402; J9334

== ENCOUNTER 2024-05-01 13:19 | Oncology outpatient (recurring) (ONCR) | payer MEDICARE, OTHER, SELFPAY ==
[2024-05-01] MEDS: [UNRECOGNIZED DRUG - OTHER] 1008 MG SUBCUT (14:37)
[2024-05-01 14:48] VITALS: BP 127/64; TEMP 36.4
== END 2024-05-01 23:59 | disposition home or self-care (01) ==
LOC: ONCMED 13:20
PROVIDERS: PCP Internal Medicine; Visit Provider Psychiatry & Neurology Neurology
DX: G70.01 Myasthenia gravis with (acute) exacerbation (principal); Z79.899 Other long term (current) drug therapy
CPT/HCPCS: 96372; J9334

== ENCOUNTER 2024-05-08 13:18 | Oncology outpatient (recurring) (ONCR) | payer MEDICARE, OTHER, SELFPAY ==
[2024-05-08 13:48] VITALS: BP 135/77; PULSE 75; RESP 16; TEMP 36.6; O2SAT 98
[2024-05-08] MEDS: [UNRECOGNIZED DRUG - OTHER] 1008 MG SUBCUT (14:29)
== END 2024-05-08 23:59 | disposition home or self-care (01) ==
LOC: ONCMED 13:19
PROVIDERS: PCP Internal Medicine; Visit Provider Psychiatry & Neurology Neurology
DX: G70.01 Myasthenia gravis with (acute) exacerbation (principal); Z79.620 Long term (current) use of immunosuppressive biologic
CPT/HCPCS: 96401; J9334

== ENCOUNTER 2024-05-17 13:27 | Oncology outpatient (recurring) (ONCR) | payer MEDICARE, OTHER, SELFPAY ==
[2024-05-17] MEDS: ferric derisomaltose 1,000 MG in sodium chloride 0.9% (100 ml) 100 ML 330 MG IV (14:27)
[2024-05-17 15:15] VITALS: BP 162/71; PULSE 78; RESP 18; TEMP 36.6; O2SAT 97
== END 2024-05-29 23:59 | disposition home or self-care (01) ==
LOC: ONCMED 13:27
PROVIDERS: PCP Internal Medicine; Visit Provider Psychiatry & Neurology Neurology
DX: D50.9 Iron deficiency anemia, unspecified (principal); G70.01 Myasthenia gravis with (acute) exacerbation; Z79.899 Other long term (current) drug therapy
CPT/HCPCS: 96365; J1437

== ENCOUNTER 2024-06-12 13:34 | Oncology outpatient (recurring) (ONCR) | payer MEDICARE, OTHER, SELFPAY ==
[2024-06-12 14:09] VITALS: BP 144/73; PULSE 79; RESP 16; TEMP 36.2; O2SAT 93
[2024-06-12] MEDS: [UNRECOGNIZED DRUG - OTHER] 1008 MG SUBCUT (14:47)
== END 2024-06-12 23:59 | disposition home or self-care (01) ==
PROVIDERS: PCP Internal Medicine; Visit Provider Psychiatry & Neurology Neurology
DX: G70.01 Myasthenia gravis with (acute) exacerbation (principal); Z79.899 Other long term (current) drug therapy
CPT/HCPCS: 96402; 96409; J9334

== ENCOUNTER 2024-06-19 09:25 | Oncology outpatient (recurring) (ONCR) | payer MEDICARE, OTHER, SELFPAY ==
[2024-06-19 09:43] VITALS: BP 162/98; PULSE 83; RESP 18; TEMP 35.9
[2024-06-19 10:06] VITALS: BP 144/92; O2SAT 96
[2024-06-19] MEDS: [UNRECOGNIZED DRUG - OTHER] 1008 MG SUBCUT (10:30)
[2024-06-19 11:09] VITALS: BP 126/96; RESP 18
== END 2024-06-19 23:59 | disposition home or self-care (01) ==
LOC: ONCMED 09:26
PROVIDERS: PCP Internal Medicine; Visit Provider Psychiatry & Neurology Neurology
DX: G70.01 Myasthenia gravis with (acute) exacerbation (principal); Z79.899 Other long term (current) drug therapy
CPT/HCPCS: 96372; J9334

== ENCOUNTER 2024-06-25 17:48 | Inpatient (IN) | payer MEDICARE, OTHER, SELFPAY ==
[2024-06-25] VITALS (13 sets, daily range): BP systolic 87–197; BP diastolic 48–100; PULSE 71–89; RESP 13–20; TEMP 36.2; O2SAT 96–98
--- NOTE | 2024-06-25 17:53 | CTR_ITS ---
PROCEDURE INFORMATION: Exam: CT Head Without Contrast Exam date and time: 06/25/2024 6:02 PM Age: 63 years old Clinical indication: Dizziness and other: N/v; Headache; C/O ESTRELLA and neck pain with severe dizziness and n/v. ; Additional info: Dizzy, vomiting, HTN TECHNIQUE: Imaging protocol: Computed tomography of the head without contrast. Radiation optimization: All CT scans at this facility use at least one of these dose optimization techniques: automated exposure control; mA and/or kV adjustment per patient size (includes targeted exams where dose is matched to clinical indication); or iterative reconstruction. COMPARISON: CT head wo con* [id number] 07/25/2021 3:54 PM RADIATION DOSE METRICS: Total DLP (mGy-cm): 1018.3 FINDINGS: Brain: No hemorrhage. No edema. Moderate diffuse cerebral atrophy. 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 No mass effect. Cerebral ventricles: No ventriculomegaly. Paranasal sinuses: Visualized sinuses are unremarkable. No fluid levels. Mastoid air cells: Visualized mastoid air cells are well aerated. Bones: Unremarkable. No acute fracture. Soft tissues: Unremarkable. CT/CT head wo con* [id number] IMPRESSION: No acute intracranial abnormality.
--- NOTE | 2024-06-25 18:08 | CTR_ITS ---
PROCEDURE INFORMATION: Exam: CTA Head With Contrast, Arteriography Exam date and time: 06/25/2024 6:26 PM Age: 63 years old Clinical indication: Dizziness and giddiness and other: N/v; Headache and other: Neck pain; C/O ESTRELLA and neck pain with severe dizziness and n/v. ; Additional info: Headache neck pain, dizzy TECHNIQUE: Imaging protocol: Computed tomographic angiography of the head with contrast. Exam focused on the arteries. 3D rendering (Not supervised by radiologist): MIP and/or 3D reconstructed images were created by the technologist. Radiation optimization: All CT scans at this facility use at least one of these dose optimization techniques: automated exposure control; mA and/or kV adjustment per patient size (includes targeted exams where dose is matched to clinical indication); or iterative reconstruction. Contrast material: OMNI 350; Contrast volume: 68 ml; Contrast route: INTRAVENOUS (IV); COMPARISON: CT head wo con* [id number] 06/25/2024 6:02 PM RADIATION DOSE METRICS: Total DLP (mGy-cm): 351.51 FINDINGS: ANTERIOR CIRCULATION: Right internal carotid artery: Intracranial segment is patent with no significant stenosis. No aneurysm. Right middle cerebral artery: No occlusion or significant stenosis. No aneurysm. Right anterior cerebral artery: No occlusion or significant stenosis. No aneurysm. Left internal carotid artery: Intracranial segment is patent with no significant stenosis. No aneurysm. Left middle cerebral artery: No occlusion or significant stenosis. No aneurysm. Left anterior cerebral artery: No occlusion or significant stenosis. No aneurysm. POSTERIOR CIRCULATION: Right vertebral artery: No occlusion or significant stenosis. No aneurysm. Left vertebral artery: No occlusion or significant stenosis. No aneurysm. Basilar artery: No occlusion or significant stenosis. No aneurysm. Right posterior cerebral artery: No occlusion or significant stenosis. No aneurysm. Left posterior cerebral artery: No occlusion or significant stenosis. No aneurysm. Brain: No definite mass, mass effect, or midline shift. Cerebral ventricles: No ventriculomegaly. Bones/joints: Unremarkable. No acute fracture. Soft tissues: Unremarkable. PROCEDURE INFORMATION: Exam: CTA Neck With Contrast Exam date and time: 06/25/2024 6:26 PM Age: 63 years old Clinical indication: Dizziness and giddiness and other: N/v; Headache and other: Neck pain; C/O ESTRELLA and neck pain with severe dizziness and n/v. ; Additional info: Headache neck pain, dizzy TECHNIQUE: Imaging protocol: Computed tomographic angiography of the neck with contrast. Exam focused on the cervical segments of the vasculature. 3D rendering (Not supervised by radiologist): MIP and/or 3D reconstructed images were created by the technologist. Radiation optimization: All CT scans at this facility use at least one of these dose optimization techniques: automated exposure control; mA and/or kV adjustment per patient size (includes targeted exams where dose is matched to clinical indication); or iterative reconstruction. Contrast material: OMNI 350; Contrast volume: 68 ml; Contrast route: INTRAVENOUS (IV); COMPARISON: CT cervical spin wo con* [id number] 07/25/2021 3:56 PM RADIATION DOSE METRICS: Total DLP (mGy-cm): 355.51 FINDINGS: Right common carotid artery: Mild stenosis at the carotid bulb. No dissection or occlusion. Right internal carotid artery: No stenosis of the extracranial segment. No dissection or occlusion. Right external carotid artery: No occlusion or stenosis of the origin. Left common carotid artery: Mild stenosis at the carotid bulb. No dissection or occlusion. Left internal carotid artery: No stenosis of the extracranial segment. No dissection or occlusion. Left external carotid artery: No occlusion or stenosis of the origin. Right vertebral artery: No stenosis. No dissection or occlusion. Left vertebral artery: No stenosis. No dissection or occlusion. Soft tissues: Normal. No significant soft tissue swelling. Bones/joints: No acute fracture. CT/CT angio headneck* [id number] IMPRESSION: No large vessel stenosis or occlusion. IMPRESSION: No stenosis or occlusion. REFERENCES: NASCET CRITERIA. The degree of stenosis in the cervical segment of the internal carotid artery is based on NASCET criteria. Normal is no stenosis. Mild is less than 50% stenosis. Moderate is 50-69% stenosis. Severe is 70% to 99% stenosis. Total occlusion is no detectable patent lumen.
--- NOTE | 2024-06-25 18:42 | ECG_ITS ---
[facility] Test Date: 2024-06-25 Pat Name: Pia Osborn Department: Room: Gender: Female Processing Operator: : [id number] Requested By: Con Steinberg Order Number: [id number] Melchor MD: STEPHAN SOTO Measurements Intervals [place] Rate: 88 P: 48 SD: 152 QRS: -2 QRSD: 105 T: 58 QT: 336 QTc: 408 Interpretive Statements SINUS RHYTHM NONSPECIFIC T-WAVE ABNORMALITY Compared to ECG 10/28/2022 18:58:51 No significant changes Electronically Signed On 06-26-2024 20:59:03 CDT by STEPHAN SOTO [email or web address] [id number]
[2024-06-25] MEDS: iohexol 350 mg/mL 500 mL Btl (per mL) IV (18:43)
[2024-06-25 18:44] LABS: Basophils % 0.8 %; Eosinophils % 0.6 %; Hematocrit 34.5 % (36-47); Lymphocytes # 1.1 10^3/uL (0.8-4.8); Lymphocytes % 20.4 %; Mean Corpuscular HGB Conc 33.9 g/dL (30-55); Mean Corpuscular Hemoglobin 30.6 pg (27-33); Mean Corpuscular Volume 90.3 fl (85-98); Mean Platelet Volume 11.7 fL (7.4-10.4); Monocytes # 0.3 10^3/uL (0.2-0.9); Monocytes % 6.4 %; Neutrophils % 71.2 %; Nucleated Red Blood Cells % 0 %; Platelet Count 159 10^3/cmm (157-399); Red Blood Count 3.82 10^6/uL (3.85-5.65); Red Cell Distribution Width 16.9 % (12.1-15.1); White Blood Count 5.19 10^3/uL (3.29-11.43)
[2024-06-25 18:57] LABS: Ketone (Acetest) Serum Negative (Negative)
--- NOTE | 2024-06-25 18:57 | W.ED.GENADLT ---
HPI - General Adult General: Chief complaint: General Medical Stated complaint: HTN; hyperglycemia Time Seen by Provider: 06/25/24 17:53 History of Present Illness: 63-year-old female with a history of myasthenia gravis. She actually has a complicated history. She has a history of intermittent hypertension as well as significant hyperglycemia, controlled with oral medications at this point. She has had a headache she says on and off for a couple of weeks. It has been much worse today upon awakening this morning. She has vomited multiple times today. She seems somewhat dizzy, but does not describe vertiginous dizziness. Sickness does get worse to some degree with change in position. She is also been hypertensive all day. Pressures as high as 210-220 systolic. She took hydralazine, but then vomited. She took hydralazine around 5 PM, which she believes she kept down. Blood pressure is now improved, but she still has a headache, neck pain, and some dizziness with nausea. She states that her myasthenia's been acting up to some degree, and she has been using injections for this, and is due for one tomorrow. Related Data Home Medications ?Medication ?Instructions ?Recorded ?Confirmed azathioprine 50 mg tablet 50 mg PO BID 07/08/19 04/11/24 citalopram 20 mg tablet 20 mg PO DAILY 07/08/19 04/11/24 cyanocobalamin (vitamin B-12) See Rx Instructions .Route .COMPLEX 07/08/19 04/11/24 1,000 mcg/mL injection solution glipizide 10 mg tablet 10 mg PO BID 07/08/19 04/11/24 pyridostigmine bromide 60 mg tablet 60 mg PO QID 07/08/19 04/11/24 levothyroxine 100 mcg tablet 100 mcg PO DAILY 04/11/24 04/11/24 pramipexole 0.125 mg tablet See Rx Instructions .Route .COMPLEX 04/11/24 04/11/24 prednisone 10 mg tablet 10 mg PO DAILY 04/11/24 04/11/24 Allergies Allergy/AdvReac Type Severity Reaction Status Date / Time Aminoglycosides Allergy Unknown Verified 06/25/24 18:00 Beta-Blockers Allergy Unknown Verified 06/25/24 18:00 (Beta-Adrenergic Bloc Calcium Channel Blocking Allergy Unknown Verified 06/25/24 18:00 Agent Dilt Corticosteroids Allergy Unknown Verified 06/25/24 18:00 (Glucocorticoids) Interferons Allergy Unknown Verified 06/25/24 18:00 magnesium Allergy ALGY-Anaphy Verified 06/25/24 18:00 laxis metoclopramide (From Reglan) Allergy Unknown Verified 06/25/24 18:00 NSAIDS (Non-Steroidal Allergy Unknown Verified 06/25/24 18:00 Anti-Inflamma quinidine Allergy Unknown Verified 06/25/24 18:00 quinine Allergy Unknown Verified 06/25/24 18:00 succinylcholine Allergy Unknown Verified 06/25/24 18:00 narcotics Allergy Unknown Uncoded 06/25/24 18:00 PFS ED PFSH: Medical History (Updated 06/26/24 @ 04:33 by Con Garcia DO) Diabetes Myasthenia Hypothyroidism Social History Smoking and tobacco/nicotine status: never used tobacco/nicotine Alcohol intake: never Substance/Drug Use: never Physical Exam Const: COMMON NORMALS: alert GENERAL APPEARANCE: cooperative, in distress (Mild), ill appearing and frail appearing ORIENTATION/CONSCIOUSNESS: Yes awake, Yes oriented to person, Yes oriented to place and Yes oriented to time HENMT: COMMON NORMALS: normocephalic, atraumatic and Normal external nose present; oral mucous membranes not moist HEAD & SCALP: normocephalic and atraumatic FACE & SINUS: normal facial exam; no edema NOSE: Normal external nose present and Normal nares present Eye: COMMON NORMALS: Equal, round and reactive pupils present and EOMs intact bilaterally PUPIL: Yes Equal, round and reactive pupils present Chest: CHEST: Yes Symmetrical chest wall rise Resp: COMMON NORMALS: normal respiratory effort and clear to auscultation bilaterally AUSCULTATION: clear to auscultation bilaterally Cardio: COMMON NORMALS: regular rate and regular rhythm RATE: regular rate RHYTHM: regular rhythm Neuro: COMMON NORMALS: CN's II-XII intact bilaterally and no focal motor deficits SENSORIUM/ORIENTATION: Yes alert, Yes oriented to person, Yes oriented to place and Yes oriented to time COORDINATION/BALANCE: [id number] test normal and [id number] test normal SPEECH: abnormal speech (mildly weakened voice) COORDINATION: [id number] test normal and [id number]-nm-[id number] test normal Course Vital Signs: Vital signs: Vital Signs Temperature 99.3 F 06/26/24 04:00 Pulse Rate 85 06/26/24 04:00 Respiratory Rate 17 06/26/24 04:00 Blood Pressure 95/54 06/26/24 04:00 Pulse Oximetry 98 06/26/24 04:00 Oxygen Delivery Me thod Nasal Cannula 06/26/24 04:00 Oxygen Flow Rate 2 06/25/24 22:00 [facility] - General Adult Medical Decision Making Patient presented with hypertension, unsteadiness, dizziness. Symptoms are not truly vertiginous. She has had multiple episodes of vomiting. She is given fluid, antihypertensives, antiemetics. Despite this, she continues to vomit, mainly with change in position. Head CT was negative noncontrast. CTA of the head and neck were performed, because of significant head and neck pain, with dizziness and unsteadiness. This is negative as well. Basic laboratory decently benign. She does not have a urinary tract infection. She has significant generalized weakness. She still quite unsteady. I am concerned she may need an MRI for posterior circulation stroke. Without indication by CTA for potential thrombectomy, and greater than 4-1/2-hour time. Since onset of symptoms, she would not be a candidate for further intervention. She will be observed. Hospitalist will see the patient. Lab Data 06/25/24 18:25 06/25/24 18:[address] 06/25/24 17:53 IMPRESSION: No acute intracranial abnormality. Head/Neck CTA 06/25/24 18:08 IMPRESSION: No large vessel stenosis or occlusion. IMPRESSION: No stenosis or occlusion. REFERENCES: NASCET CRITERIA. The degree of stenosis in the cervical segment of the internal carotid artery is based on NASCET criteria. Normal is no stenosis. Mild is less than 50% stenosis. Moderate is 50-69% stenosis. Severe is 70% to 99% stenosis. Total occlusion is no detectable patent lumen. Laboratory Results WBC 5.19 10^3/uL (3.29-11.43) 06/25/24 18: RBC 3.82 10^6/uL (3.85-5.65) L 06/25/24 18: Hgb 11.70 g/dL (11.27-16.99) 06/25/24 18: Hct 34.5 % (36-47) L 06/25/24 18: MCV 90.3 fl (85-98) 06/25/24 18: MCH 30.6 pg (27-33) 06/25/24 18: MCHC 33.9 g/dL (30-55) 06/25/24 18: RDW 16.9 % (12.1-15.1) H 06/25/24 18: Plt Count 159 10^3/cmm (157-399) 06/25/24 18: MPV 11.7 fL (7.4-10.4) H 06/25/24 18: Neut % (Auto) 71.2 % 06/25/24 18: Lymph % (Auto) 20.4 % 06/25/24 18: [place] % (Auto) 6.4 % 06/25/24 18: Eos % (Auto) 0.6 % 06/25/24 18: Baso % (Auto) 0.8 % 06/25/24: Neut # (Auto) 3.70 10^3/uL (1.8-7.7) 06/25/24 18: Lymph # (Auto) 1.1 10^3/uL (0.8-4.8) 06/25/24 18: [place] # (Auto) 0.3 10^3/uL (0.2-0.9) 06/25/24: Eos # (Auto) 0.0 10^3/uL (0.0-0.8) 06/25/24 18: Baso # (Auto) 0.0 10^3/uL (0.0-0.1) 06/25/24: Nucleated RBC % (auto) 0 % 06/25/24: Nucleated RBCs # 0.0 /100WBC 06/25/24 18: Sodium 136 mmol/L (136-145) 06/25/24 18: Potassium 4.1 mmol/L (3.5-5.1) 06/25/24 18: Chloride 100 mmol/L (98-107) 06/25/24 18: Carbon Dioxide 22 mmol/L (22-29) 06/25/24 18:25 Anion Gap 18.1 (5-19) 06/25/24 18:25 BUN 15 mg/dL (8-23) 06/25/24 18:25 Creatinine 0.7 mg/dL (0.5-0.9) 06/25/24 18:25 GFR Calculation 84.2 mL/min (90-130) L 06/25/24 18:25 Glucose 334 mg/dL (65-115) H 06/25/24 18:25 POC Glucose 170 mg/dL (70-110) H 06/25/24 22:01 Estimat Average Glucose 255 06/25/24 18:25 Hemoglobin A1c 10.5 % (4.0-6.0) H 06/25/24 18:25 Calculated Osmolality 296 mOsm/kg (285-295) H 06/25/24 18:25 Lactic Acid 1.3 mmol/L (0.5-2.2) 06/25/24 18: Calcium 9.6 mg/dL (8.5-10.5) 06/25/24 18:25 Total Bilirubin 1.0 mg/dL (0.15-1.2) 06/25/24 18:25 AST 22 U/L (0-32) 06/25/24 18:25 ALT 18 U/L (0-33) 06/25/24 18:25 Alkaline Phosphatase 71 U/L (35-105) 06/25/24 18:25 C-Reactive Protein 3.0 mg/L (0.0-4.9) 06/25/24 18:25 Total Protein 5.9 g/dL (6.6-8.7) L 06/25/24 18:25 Albumin 3.7 g/dL (3.5-5.2) 06/25/24 18:25 Globulin 2.2 g/dL (1.3-4.6) 06/25/24 18:25 Lipase 34 U/L (13-60) 06/25/24 18:25 TSH 10.74 uIU/mL (0.27-4.20) H 06/25/24 18:25 Free T4 1.14 ng/dL (0.82-1.77) 06/25/24 18:52 Urine Color Yellow (Yellow) 06/25/24 19:08 Urine Appearance Clear (CLEAR) 06/25/24 19:08 Urine pH 7.5 (5-7) 06/25/24 19:08 Ur Specific [place] 1.032 (1.005-1.030) H 06/25/24 19:08 Urine Protein 3+ (Negative) A 06/25/24 19:08 Urine Glucose (UA) 3+ (Normal) H 06/25/24 19:08 Urine Ketones 1+ (Negative) H 06/25/24 19:08 Urine Blood Negative (Negative) 06/25/24 19:08 Urine Nitrate Negative (Negative) 06/25/24 19:08 Urine Bilirubin Negative (Negative) 06/25/24 19:08 Urine Urobilinogen 1.0 mg/dL (Negative) 06/25/24 19:08 Ur Leukocyte Esterase Trace (Negative) A 06/25/24 19:08 Urine RBC 0-2 /hpf (0-2) 06/25/24 19:08 Urine WBC 11-20 /hpf (0-5) H 06/25/24 19:08 Ur Squamous Epith Cells 0-5 /hpf (0-5) 06/25/24 19:08 Amorphous Sediment Not Reportable 06/25/24 19:08 Urine Bacteria Trace /hpf (NONE) 06/25/24 19:08 Hyaline Casts 0.40 /lpf 06/25/24 19:08 Serum Ketones Negative (Negative) 06/25/24 18:25 All radiology interpretation(s) finalized by discharge Discharge Plan Discharge Patient Disposition: Placed in Observation Admit Provider: Idris Feliciano Clinical Impression: Myasthenia gravis with (acute) exacerbation, Intractable nausea and vomiting, Hyperglycemia, Iron deficiency anemia, unspecified Coding Level of Care Code ED Leadership Development Manager for Chg Avinash
[2024-06-25 19:02] LABS: Lactic Sepsis W/Reflex 1.3 mmol/L (0.5-2.2)
[2024-06-25 19:06] LABS: Estmated Average Glucose 255; Hemoglobin A1C 10.5 % (4.0-6.0)
[2024-06-25 19:12] LABS: Alanine Aminotransferase 18 U/L (0-33); Albumin Level 3.7 g/dL (3.5-5.2); Alkaline Phosphatase 71 U/L (35-105); Anion Gap 18.1 (5-19); Aspartate Amino Transferase 22 U/L (0-32); Blood Urea Nitrogen 15 mg/dL (8-23); Calcium 9.6 mg/dL (8.5-10.5); Carbon Dioxide 22 mmol/L (22-29); Chloride 100 mmol/L (98-107); Creatinine Clr Calc Pharmacy 73.4128; Globulin 2.2 g/dL (1.3-4.6); Glomerular Filtration Rate 84.2 mL/min (90-130); Glucose 334 mg/dL (65-115); Lipase 34 U/L (13-60); Osmolality Calculated 296 mOsm/kg (285-295); Potassium 4.1 mmol/L (3.5-5.1); Sodium 136 mmol/L (136-145); Thyroid Stimulating Hormone 10.74 uIU/mL (0.27-4.20); Total Protein 5.9 g/dL (6.6-8.7)
[2024-06-25] MEDS: LORazepam 2 mg/mL INJ 1 mL 0.5 MG IVP (19:14)
[2024-06-25 19:16] LABS: Bilirubin Urine Negative (Negative); Blood Urine Negative (Negative); Glucose Urine UA 3+ (Normal); Ketones Urine 1+ (Negative); Leukocyte Esterase Urine Trace (Negative); Nitrate Urine Negative (Negative); Protein Urine 3+ (Negative); Urine Appearance Clear (CLEAR); Urine Color Yellow (Yellow); pH Urine 7.5 (5-7)
[2024-06-25 19:21] LABS: Add Urine Microscopic? YES; Bacteria Urine Trace /hpf; RBC Urine 0-2 /hpf (0-2); Squamous Epithelial Cell Urine 0-5 /hpf (0-5)
[2024-06-25 19:29] LABS: Specific Gravity, Urine 1.032 (1.005-1.030)
[2024-06-25 19:30] LABS: Add Urine Culture? No
[2024-06-25] MEDS: hyDRALAzine 20 mg/mL INJ 1 mL IVP (19:30)
[2024-06-25] MEDS: enalaprilat 2.5 mg/2 mL SDV 1.25 MG IVP (19:34)
[2024-06-25] MEDS: insulin regular-human 100 units/1 mL 7 UNIT IVP (19:47)
[2024-06-25 19:50] LABS: Glucose Point of Care 348 mg/dL (70-110)
[2024-06-25] MEDS: sodium chloride 0.9% 1,000 ML 999 ML IV (20:09)
[2024-06-25 20:15] LABS: Glucose Point of Care 281 mg/dL (70-110)
[2024-06-25] MEDS: ondansetron 2 mg/ML SDV 2 mL 4 MG IVP (21:20)
[2024-06-25 22:05] LABS: Glucose Point of Care 170 mg/dL (70-110)
--- NOTE | 2024-06-25 22:40 | PM.HP ---
Providers/Chief Complaint Primary Care Provider: Ursula Pollard MD Chief Complaint: HTN; hyperglycemia History of Present Illness Pia Osborn is a 63 year old female with past medical history significant for type 2 diabetes mellitus, hypothyroidism, hyperlipidemia, hypertension, depression, and myasthenia gravis who presents to the emergency department with intractable nausea and vomiting. Patient states she was in her usual state of health until waking up this morning with intractable nausea and vomiting. Reports numerous episodes of emesis today. She reports any movement of her head worsens her symptoms. She endorses associated headache, lightheadedness, elevated blood pressures, and dizziness. She reports home blood pressures were high as 220 mmHg for which she took some hydralazine followed by further emesis. In the emergency department, patient's blood pressure was found to be labile as high as 197/100 mmHg down to 99/50 mmHg during my evaluation. CBC was largely unremarkable. She is found to have hyperglycemia in the setting of uncontrolled type 2 diabetes mellitus. CMP was otherwise largely unremarkable. TSH 10.7. Urinalysis with proteinuria, glucosuria, mild ketonuria, trace leukocyte esterace and 11-[address] was negative for acute intracranial findings. CTA head and neck was negative for significant stenosis or large vessel occlusion. ED provider reports multiple attempts to stand and ambulate patient failed due to recurrent nausea and vomiting for which hospital admission has been requested. Review of Systems Narrative: A complete review of systems was obtained and is negative except as stated in HPI. Medications/Allergies Home Medications ?Medication ?Instructions ?Recorded ?Confirmed ?Last Taken ?Type azathioprine 50 mg tablet 50 mg PO BID 07/08/19 04/11/24 04/10/24 History citalopram 20 mg tablet 20 mg PO DAILY 07/08/19 04/11/24 04/10/24 History cyanocobalamin (vitamin B-12) See Rx Instructions .Route .COMPLEX 07/08/19 04/11/24 03/12/24 History 1,000 mcg/mL injection solution glipizide 10 mg tablet 10 mg PO BID 07/08/19 04/11/24 04/11/24 History pyridostigmine bromide 60 mg tablet 60 mg PO QID 07/08/19 04/11/24 04/11/24 History levothyroxine 100 mcg tablet 100 mcg PO DAILY 04/11/24 04/11/2425 History pramipexole 0.125 mg tablet See Rx Instructions .Route .COMPLEX 04/11/24 04/11/24 04/10/24 History prednisone 10 mg tablet 10 mg PO DAILY 04/11/24 04/11/24 04/10/24 History Allergies Allergy/AdvReac Type Severity Reaction Status Date / Time Aminoglycosides Allergy Unknown Verified 06/25/24 18:00 Beta-Blockers Allergy Unknown Verified 06/25/24 18:00 (Beta-Adrenergic Bloc Calcium Channel Blocking Allergy Unknown Verified 06/25/24 18:00 Agent Dilt Corticosteroids Allergy Unknown Verified 06/25/24 18:00 (Glucocorticoids) Interferons Allergy Unknown Verified 06/25/24 18:00 magnesium Allergy ALGY-Anaphy Verified 06/25/24 18:00 laxis metoclopramide (From Reglan) Allergy Unknown Verified 06/25/24 18:00 NSAIDS (Non-Steroidal Allergy Unknown Verified 06/25/24 18:00 Anti-Inflamma quinidine Allergy Unknown Verified 06/25/24 18:00 quinine Allergy Unknown Verified 06/25/24 18:00 succinylcholine Allergy Unknown Verified 06/25/24 18:00 narcotics Allergy Unknown Uncoded 06/25/24 18:00 PFSH Acute PFSH: Medical History (Updated 06/25/24 @ 23:00 by Idris Feliciano MD) Diabetes Myasthenia Hypothyroidism Social History Smoking and tobacco/nicotine status: never used tobacco/nicotine Alcohol intake: never Substance/Drug Use: never Vitals/I&O/Wt Last Vital Signs Temp 97.1 F L 06/25/24 17:55 Pulse 88 06/25/24 20:00 Resp 14 06/25/24 20:00 BP 99/50 06/25/24 20:00 Pulse Ox 96 06/25/24 20:00 O2 Del Method Room Air 06/25/24 17:55 06/25/24 06/25/24 06/25/24 06:59 14:59 22:59 Intake Total 50 / 50 Balance 50 / 50 Weight last 48 hrs Weight 68.039 kg Physical Exam Narrative: General: Patient is awake. Ill-appearing. Poverty of words. Head: Normocephalic. Only briefly opens eyes. Keeps eyes closed that the majority of exam. Mucous membranes are dry. Neck: No JVD. Cardiovascular: RRR. No gallops. No murmurs. Lungs: Clear to auscultation, no use of accessory muscles, no crackles or wheezes. Skin: No jaundice. No rashes. Abdomen: Normal bowel sounds, abdomen soft and nontender. Genito Urinary: Genital exam not performed since complaints not related. Rectal: Rectal exam not performed since no symptoms indicated blood loss. Extremities: No cyanosis or clubbing. Musculoskeletal: No swollen or erythematous joints. Neurological: Moves all 4 extremities. No myoclonus. Data 06/25/24 18:25 06/25/24 18:25 A&P Assessment and plan (1) Myasthenia: (2) Intractable nausea and vomiting: (3) Vertigo: (4) Type 2 diabetes mellitus: (5) Hypertension: (6) Headache: (7) Hyperglycemia: (8) Abnormal thyroid blood test: (9) Abnormal urinalysis: Plan Intractable nausea and vomiting Dehydration - May be related to vertigo versus blood pressure changes - IV antiemetics as needed - Start IV fluids until nausea vomiting improves - Supportive care Vertigo Headache/Migraine - CT head, CTA head neck negative for acute findings - Meclizine as needed - May consider benzodiazepines pending clinical course - Consider head MRI for evaluation of cerebellum if no improvement by a.m. - Optimize blood pressure History of hypertension with labile blood pressure - Blood pressures currently low, hold further antihypertensives for now - Plan to reintroduce antihypertensives as clinically indicated Abnormal urinalysis - Leukocyte esterace trace, WBCs 11-20 - Will cover with ceftriaxone for now Proteinuria on urine dip - In the setting of T2DM - Does not appears to be on ACEI Type 2 diabetes mellitus, uncontrolled with hyperglycemia - A1c 10.5 - Hold glipizide - Start Lantus 10 units bedtime - Sliding scale correction Hypothyroidism - TSH 10.74 - Free T4 ordered - Continue home Synthroid DVT ppx: Lovenox Code: Full PDMP PDMP Reviewed: Not Reviewed Attestations Medical Necessity Statement*: Patient presents with intractable N/V with vertigo, found to have labile BP with expected hospitalization not cross two midnights for IV fluids, IV antiemetic, BP control, IV abx, possibly further imaging, and supportive care. Coding Level of Care Code Acute Code for Chg Fwd Diagnoses Myasthenia G70.00 Intractable nausea and vomiting R11.2 Vertigo R42 Type 2 diabetes mellitus E11.9 Hypertension I10 Headache R51.9 Hyperglycemia R73.9 Abnormal thyroid blood test R79.89 Abnormal urinalysis R82.90
[2024-06-25 23:49] LABS: Free T4 Free Thyroxine 1.14 ng/dL (0.82-1.77)
[2024-06-26] VITALS (9 sets, daily range): BP systolic 91–121; BP diastolic 48–65; PULSE 63–89; RESP 17; TEMP 36.9–37.8; O2SAT 93–98
[2024-06-26] MEDS: cefTRIAXone 1,000 mg SDV 1000 MG IVP (00:23)
[2024-06-26] MEDS: pantoprazole DR 40 mg Tablet PO ×2 (00:23→08:03)
[2024-06-26] MEDS: enoxaparin 40 mg/0.4 mL Syringe SUBCUT (00:24)
[2024-06-26] MEDS: sodium chloride 0.9% 1,000 ML 75 ML IV ×2 (00:24→15:17)
[2024-06-26 06:12] LABS: Hematocrit 31.7 % (36-47); Lymphocytes # 0.7 10^3/uL (0.8-4.8); Lymphocytes % 18.7 %; Mean Corpuscular HGB Conc 31.5 g/dL (30-55); Mean Corpuscular Hemoglobin 30.7 pg (27-33); Mean Corpuscular Volume 97.2 fl (85-98); Mean Platelet Volume 10.4 fL (7.4-10.4); Monocytes # 0.2 10^3/uL (0.2-0.9); Monocytes % 6.1 %; Neutrophils # 2.87 10^3/uL (1.8-7.7); Neutrophils % 72.4 %; Nucleated Red Blood Cells % 0 %; Platelet Count 133 10^3/cmm (157-399); Red Blood Count 3.26 10^6/uL (3.85-5.65); Red Cell Distribution Width 17.4 % (12.1-15.1); White Blood Count 3.96 10^3/uL (3.29-11.43)
[2024-06-26 06:30] LABS: Glucose Point of Care 183 mg/dL (70-110)
[2024-06-26 06:36] LABS: Alanine Aminotransferase 12 U/L (0-33); Albumin Level 3.1 g/dL (3.5-5.2); Alkaline Phosphatase 60 U/L (35-105); Aspartate Amino Transferase 14 U/L (0-32); Blood Urea Nitrogen 16 mg/dL (8-23); Calcium 8.3 mg/dL (8.5-10.5); Carbon Dioxide 24 mmol/L (22-29); Chloride 107 mmol/L (98-107); Creatinine Clr Calc Pharmacy 56.1218; Globulin 1.8 g/dL (1.3-4.6); Glucose 157 mg/dL (65-115); Magnesium 1.9 mg/dL (1.7-2.3); Osmolality Calculated 294 mOsm/kg (285-295); Phosphorus 4.1 mg/dL (2.5-4.5); Sodium 140 mmol/L (136-145); Total Bilirubin 0.6 mg/dL (0.15-1.2); Total Protein 4.9 g/dL (6.6-8.7)
--- NOTE | 2024-06-26 07:49 | PC.PHAR ---
Pt states she last kept down, her medications on Wednesday. Pt states she re-started Hydroxyzine 10mg on Wednesday. Pt has Jardiance 10mg and Lantus Solostar on hold from November of 2023.
[2024-06-26] MEDS: insulin lispro 100 unit/1 mL SUBCUT ×2 (08:04→17:27)
[2024-06-26] MEDS: pyridostigmine 60 mg Tablet PO ×3 (08:04→17:27)
[2024-06-26] MEDS: levothyroxine 100 mcg Tablet PO (08:04)
[2024-06-26] MEDS: ondansetron 2 mg/ML SDV 2 mL 4 MG IVP (09:36)
--- NOTE | 2024-06-26 09:44 | PC.CHAP ---
Pastoral Care Encounter/Spiritual Assessment Type of Contact [] Declined seed district sales manager visit [] Patient/Family/Request visit [] Outpatient visit [] Follow-up visit [] Physician referral [] Code/Alert [x] Routine visit [] Staff referral [] Actively dying [] Patient sleeping [] Family support [] [] Out of room [] Palliative care [] [] Receiving care in room [] Pre-surgical visit [] Trauma [] Long length of stay [] ICU visit [] Other: Relational/Emotional Strength [] Patient feels connected with others/family/visitors/staff [] Distress [] Loneliness/isolation [] Abandonment Spirituality of Patient [x] Person of Ailyn [] Attends Caodaism of their Ailyn [x] Believes in Prayer [] Reads Bible or Judaism materials [] There are Spiritual issues to be addressed Cloth Tester Interventions [x] Prayer [x] Active listening [] Non-anxious presence [] Spiritual/emotional support [] Crisis/trauma care [] Spiritual counseling [] Bereavement support [] Provided bereavement packet [x] Provided Bible/devotional materials [] Provided toy/stuffed animal, coloring book to patient or family member [] Provided Communion [] Anointing/[place] [] Salvation [x] Completed spiritual assessment [] Other: Impact on Illness or Injury [] Angry [] Fearful [] Anxious [] Often cries [] Exhaustion [] Unable to work [] Unable to attend faith [] Unable to walk/stand [] Unable to read [] Unable to drive [] Unable to eat/drink [] Unable to sleep [] Unable to be with family [] Patient intubated [] Other: Summary Time spent with patient 10 min
[2024-06-26 11:45] LABS: Glucose Point of Care 114 mg/dL (70-110)
[2024-06-26] MEDS: prochlorperazine 10 mg/2 mL Inj IVP (12:12)
--- NOTE | 2024-06-26 14:22 | MRR_ITS ---
PROCEDURE INFORMATION: Exam: MR Head Without Contrast Exam date and time: 06/26/2024 4:55 PM Age: 63 years old Clinical indication: Weakness, extremity; Additional info: Concern for posterior circulation stroke TECHNIQUE: Imaging protocol: Magnetic resonance imaging of the head without contrast. COMPARISON: CT angio headneck* [id number] 06/25/2024 6:26 PM FINDINGS: Brain: Normal. No acute infarct. No hemorrhage. No significant white matter disease. No edema. No restricted diffusion. Cerebral ventricles: Normal. No ventriculomegaly. Bones: Unremarkable. Paranasal sinuses: Normal as visualized. No acute sinusitis. Mastoid air cells: Normal as visualized. No mastoid effusion. Orbital cavities: Unremarkable. Soft tissues: Unremarkable. MR/MR head wo con* [id number] IMPRESSION: No acute findings.
[2024-06-26 15:54] LABS: Glucose Point of Care 159 mg/dL (70-110)
--- NOTE | 2024-06-26 16:09 | P.PN_ITS ---
Subjective 2 Subjective: Overnight labs and H&P reviewed. Patient continues to complain of persisting dizziness today. Has not been out of bed related to her dizziness. Blood pressure currently is 100/57, trending towards low normal. Noted past history of myasthenia gravis. Vitals/I&O/Wt Last Vital Signs Temp 98.4 F 06/26/24 11:50 Pulse 76 06/26/24 11:50 Resp 17 06/26/24 11:50 BP 100/57 06/26/24 11:50 Pulse Ox 94 06/26/24 11:50 O2 Del Method Nasal Cannula 06/26/24 11:50 O2 Flow Rate 2 06/25/24 22:00 06/26/24 06/26/24 06/26/24 06:59 14:59 22:59 Intake Total 1300 / 1350 1600 / 1600 Balance 1300 / 1350 1600 / 1600 Weight last 48 hrs Weight 65.589 kg Weight 61.235 kg Weight 68.039 kg Physical Exam 2 Narrative: General: No acute distress, AO x3 HEENT: PERRLA, pupils bilaterally equal and reactive, pallors not present Chest: Normal vesicular breath sounds, no added sounds, equal good air entry bilaterally CVS: S1-S2 regular, no murmurs, no tachycardia, no gallops, no rubs Abdomen: Soft, nontender, no organomegaly, bowel sounds present Neuro: No focal deficits, no facial deformity, AO x3, power 5/5 in all limbs Data 06/26/24 05:32 06/26/24 05:32 A&P Assessment and plan (1) Myasthenia: (2) Intractable nausea and vomiting: (3) Vertigo: (4) Type 2 diabetes mellitus: (5) Hypertension: (6) Headache: (7) Hyperglycemia: (8) Abnormal thyroid blood test: (9) Abnormal urinalysis: Plan Intractable nausea and vomiting Dehydration - May be related to vertigo versus blood pressure changes - IV antiemetics as needed - Start IV fluids until nausea vomiting improves - Supportive care Vertigo Headache/Migraine - CT head, CTA head neck negative for acute findings - Meclizine as needed - May consider benzodiazepines pending clinical course - Consider head MRI for evaluation of cerebellum if no improvement by a.m. - Optimize blood pressure History of hypertension with labile blood pressure - Blood pressures currently low, hold further antihypertensives for now - Plan to reintroduce antihypertensives as clinically indicated Abnormal urinalysis - Leukocyte esterace trace, WBCs 11-20 - Will cover with ceftriaxone for now Proteinuria on urine dip - In the setting of T2DM - Does not appears to be on ACEI Type 2 diabetes mellitus, uncontrolled with hyperglycemia - A1c 10.5 - Hold glipizide - Start Lantus 10 units bedtime - Sliding scale correction Hypothyroidism - TSH 10.74 - Free T4 ordered - Continue home Synthroid DVT ppx: Lovenox Code: Full June 26, 2024 Patient continues to have persistent symptoms of headache and dizziness. Will obtain MRI to rule out posterior circulation stroke. Blood pressure currently trending towards low normal. Discontinue as needed hydralazine. PDMP PDMP Reviewed: Not Reviewed Attestations 2 Medical Necessity Statement*: MRI head today Coding Level of Care Code Acute Code for Chg Fwd Diagnoses Myasthenia G70.00 Intractable nausea and vomiting R11.2 Vertigo R42 Type 2 diabetes mellitus E11.9 Hypertension I10 Headache R51.9 Hyperglycemia R73.9 Abnormal thyroid blood test R79.89 Abnormal urinalysis R82.90
[2024-06-26] MEDS: acetaminophen 325 mg Tablet 650 MG PO (17:58)
[2024-06-26 20:31] LABS: Glucose Point of Care 86 mg/dL (70-110)
--- NOTE | 2024-06-26 21:11 | XRR_ITS ---
PROCEDURE INFORMATION: Exam: XR Chest Exam date and time: 06/26/2024 9:25 PM Age: 63 years old Clinical indication: Fever; Additional info: Fever, assess for pneumonia TECHNIQUE: Imaging protocol: Radiologic exam of the chest. Views: 1 view. COMPARISON: CT angio chest PE protcl [id number] 10/19/2022 9:27 PM FINDINGS: Lungs: Minimally increased opacity within left lower lobe. No definite focal consolidation. Pleural spaces: Unremarkable. No pleural effusion. No pneumothorax. Heart/Mediastinum: Unremarkable. No cardiomegaly. Bones/joints: Unremarkable. XR/XR chest 1V portable [id number] IMPRESSION: Minimally increased opacity within left lower lobe, which may represent atelectasis, however developing infectious process not excluded.
--- NOTE | 2024-06-26 21:48 | PC.NURSE ---
Notified Dr. Gutierrez of Bed 278-2 Pia Osborn refused her meclizine hcl 25mg and pyridostigmine 60mg said gives her the shits he replied thats fine.
[2024-06-27] VITALS (9 sets, daily range): BP systolic 100–180; BP diastolic 61–83; PULSE 67–84; RESP 16–17; TEMP 36.3–37.2; O2SAT 90–99
[2024-06-27] MEDS: cefTRIAXone 1,000 mg SDV 1000 MG IVP (00:10)
[2024-06-27] MEDS: enoxaparin 40 mg/0.4 mL Syringe SUBCUT (00:10)
[2024-06-27 04:53] LABS: Basophils # 0.1 10^3/uL (0.0-0.1); Basophils % 1.2 %; Eosinophils # 0.1 10^3/uL (0.0-0.8); Eosinophils % 1.2 %; Hematocrit 32.6 % (36-47); Lymphocytes # 1.3 10^3/uL (0.8-4.8); Lymphocytes % 31.4 %; Mean Corpuscular HGB Conc 32.2 g/dL (30-55); Mean Corpuscular Hemoglobin 30.8 pg (27-33); Mean Corpuscular Volume 95.6 fl (85-98); Mean Platelet Volume 11.2 fL (7.4-10.4); Monocytes # 0.3 10^3/uL (0.2-0.9); Monocytes % 6.9 %; Neutrophils # 2.48 10^3/uL (1.8-7.7); Neutrophils % 58.8 %; Nucleated Red Blood Cells % 0 %; Platelet Count 150 10^3/cmm (157-399); Red Blood Count 3.41 10^6/uL (3.85-5.65); Red Cell Distribution Width 16.6 % (12.1-15.1); White Blood Count 4.21 10^3/uL (3.29-11.43)
[2024-06-27 05:04] LABS: Alanine Aminotransferase 13 U/L (0-33); Albumin Level 3.2 g/dL (3.5-5.2); Alkaline Phosphatase 63 U/L (35-105); Anion Gap 12.6 (5-19); Aspartate Amino Transferase 23 U/L (0-32); Blood Urea Nitrogen 14 mg/dL (8-23); Calcium 8.6 mg/dL (8.5-10.5); Carbon Dioxide 25 mmol/L (22-29); Chloride 104 mmol/L (98-107); Creatinine Clr Calc Pharmacy 45.9179; Globulin 1.9 g/dL (1.3-4.6); Glucose 139 mg/dL (65-115); Osmolality Calculated 289 mOsm/kg (285-295); Potassium 3.6 mmol/L (3.5-5.1); Sodium 138 mmol/L (136-145); Total Bilirubin 0.4 mg/dL (0.15-1.2); Total Protein 5.1 g/dL (6.6-8.7)
[2024-06-27 06:21] LABS: Glucose Point of Care 160 mg/dL (70-110)
[2024-06-27] MEDS: insulin lispro 100 unit/1 mL SUBCUT (09:03)
[2024-06-27] MEDS: pyridostigmine 60 mg Tablet PO ×2 (09:03→13:18)
[2024-06-27] MEDS: levothyroxine 100 mcg Tablet PO (09:03)
[2024-06-27] MEDS: pantoprazole DR 40 mg Tablet PO (09:03)
[2024-06-27] MEDS: meclizine 25 mg tablet PO ×2 (09:03→15:28)
--- NOTE | 2024-06-27 10:19 | PC.CHAP ---
Pastoral Care Encounter/Spiritual Assessment Type of Contact [] Declined sand cutter visit [] Patient/Family/Request visit [] Outpatient visit [] Follow-up visit [] Physician referral [] Code/Alert [x] Routine visit [] Staff referral [] Actively dying [] Patient sleeping [x] Family support [] [] Out of room [] Palliative care [] [] Receiving care in room [] Pre-surgical visit [] Trauma [] Long length of stay [] ICU visit [] Other: Relational/Emotional Strength [x] Patient feels connected with others/family/visitors/staff [] Distress [] Loneliness/isolation [] Abandonment Spirituality of Patient [x] Person of Ailyn [] Attends Restorationism of their Ailyn [x] Believes in Prayer [] Reads Bible or Zoroastrianism materials [] There are Spiritual issues to be addressed Featheredge Machine Operator Interventions [x] Prayer [x] Active listening [] Non-anxious presence [xx] Spiritual/emotional support [] Crisis/trauma care [] Spiritual counseling [] Bereavement support [] Provided bereavement packet [] Provided Bible/devotional materials [] Provided toy/stuffed animal, coloring book to patient or family member [] Provided Communion [] Anointing/[place] [] Salvation [x] Completed spiritual assessment [] Other: Impact on Illness or Injury [] Angry [] Fearful [] Anxious [] Often cries [] Exhaustion [] Unable to work [] Unable to attend islam [] Unable to walk/stand [] Unable to read [] Unable to drive [] Unable to eat/drink [] Unable to sleep [] Unable to be with family [] Patient intubated [] Other: Summary Time spent with patient 5 min
[2024-06-27 11:01] LABS: Adenovirus Not Detected (NOT DETECT); Chlamydia Pneumoniae Not Detected (NOT DETECT); Coronavirus 229E,HKU1,NL63,OC4 Not Detected (NOT DETECT); Human Metapneumovirus Not Detected (NOT DETECT); Human Rhinovirus/Enterovirus Not Detected (NOT DETECT); Influenza A Not Detected (NOT DETECT); Influenza A H1 Not Detected (NOT DETECT); Influenza A H1-2009 Not Detected (NOT DETECT); Influenza A H3 Not Detected (NOT DETECT); Influenza B Not Detected (NOT DETECT); Mycoplasma Pneumoniae Not Detected (NOT DETECT); Parainfluenza Virus Type 1 Not Detected (NOT DETECT); Parainfluenza Virus Type 2 Not Detected (NOT DETECT); Parainfluenza Virus Type 3 Not Detected (NOT DETECT); Parainfluenza Virus Type 4 Not Detected (NOT DETECT); Respiratory Syncytial Virus A Not Detected (NOT DETECT); Respiratory Syncytial Virus B Not Detected (NOT DETECT); SARS-COV-2 Not Detected (NOT DETECT)
[2024-06-27 11:24] LABS: Glucose Point of Care 123 mg/dL (70-110)
[2024-06-27] MEDS: sodium chloride 0.9% 1,000 ML 75 ML IV (12:03)
--- NOTE | 2024-06-27 14:43 | PM.DCS ---
Discharge Providers Date of Admission: 06/26/24 16:00 Date of Discharge: June 27, 2024 Attending Provider at Admission: Idris Feliciano MD Attending Provider at Discharge: Jackelyn Pickering MD Primary Care Provider: Ursula Pollard MD Diagnoses at Discharge Discharge Diagnosis (1) Myasthenia: Status: Acute (2) Intractable nausea and vomiting: Status: Acute (3) Vertigo: Status: Acute (4) Type 2 diabetes mellitus: Status: Acute (5) Hypertension: Status: Acute (6) Headache: Status: Acute (7) Hyperglycemia: Status: Acute (8) Abnormal thyroid blood test: Status: Acute (9) Abnormal urinalysis: Status: Acute Reason for Visit Reason for Visit: HTN; hyperglycemia Brief History: Pia Osborn is a 63 year old female with past medical history significant for type 2 diabetes mellitus, hypothyroidism, hyperlipidemia, hypertension, depression, and myasthenia gravis chronically maintained on azathioprine, prednisone 10 mg and recently started Vyvgart as an outpatient who presented to the emergency department with intractable nausea and vomiting with associated headache, lightheadedness, elevated blood pressures, and dizziness. She reports home blood pressures were high as 220 mmHg for which she took some hydralazine followed by further emesis. Urinalysis with proteinuria, glucosuria, mild ketonuria, trace leukocyte esterace and 11-[address] was negative for acute intracranial findings. CTA head and neck was negative for significant stenosis or large vessel occlusion. MRi head ruled out posterior circulation stroke. She had one time fever 100.1F. Blood cx thus far negative to date. Urine cx pending. CXR showed possible LLL atelactasis vs developing pneumonia. She was on 2lpm supplemental 02 on arrival however today had a home oxygen evaluation which showed she did not require supplemental 02. Meningitis considered less likely given negative Kernig's sign and overall improvement in symptoms. NIF was -45. She received iv hydration, iv ceftriaxone and scheduled meclizine during admission course and is imp[roved today. Discharged home today on oral cephalosporins. Recommended to return to ED with any worsening of symptoms or fever.. Physical Exam Narrative: General: No acute distress, AO x3 HEENT: PERRLA, pupils bilaterally equal and reactive, pallors not present Chest: Normal vesicular breath sounds, no added sounds, equal good air entry bilaterally CVS: S1-S2 regular, no murmurs, no tachycardia, no gallops, no rubs Abdomen: Soft, nontender, no organomegaly, bowel sounds present Neuro: No focal deficits, no facial deformity, AO x3, power 5/5 in all limbs Discharge Data Studies Completed and Pending Completed Studies During Hospitalization Category Date Time Status CT head wo con* [id number] Stat Cat Scan 06/25/24 17:53 Completed CTA head neck [CT angio headneck* [id number]] Stat Cat Scan 06/25/24 18:08 Completed CXRP [XR chest 1V portable [id number]] Routine Exams 06/26/24 21:11 Completed MR head wo con* [id number] Routine MRI 06/26/24 14:22 Completed Pending at discharge Category Date Time Status Blood Culture AM LABS Lab 06/27/24 03:57 Results Urine Culture Routine Lab 06/26/24 21:11 Uncollected Radiology Impressions Head CT 06/25/24 17:53 IMPRESSION: No acute intracranial abnormality. Head/Neck CTA 06/25/24 18:08 IMPRESSION: No large vessel stenosis or occlusion. IMPRESSION: No stenosis or occlusion. REFERENCES: NASCET CRITERIA. The degree of stenosis in the cervical segment of the internal carotid artery is based on NASCET criteria. Normal is no stenosis. Mild is less than 50% stenosis. Moderate is 50-69% stenosis. Severe is 70% to 99% stenosis. Total occlusion is no detectable patent lumen. Head MRI 06/26/24 14:22 IMPRESSION: No acute findings. Chest X-Ray 06/26/24 21:11 IMPRESSION: Minimally increased opacity within left lower lobe, which may represent atelectasis, however developing infectious process not excluded. Laboratory Results WBC 4.21 10^3/uL (3.29-11.43) 06/27/24 03:57 RBC 3.41 10^6/uL (3.85-5.65) L 06/27/24 03:57 Hgb 10.50 g/dL (11.27-16.99) L 06/27/24 03:57 Hct 32.6 % (36-47) L 06/27/24 03:57 MCV 95.6 fl (85-98) 06/27/24 03:57 MCH 30.8 pg (27-33) 06/27/24 03:57 MCHC 32.2 g/dL (30-55) 06/27/24 03:57 RDW 16.6 % (12.1-15.1) H 06/27/24 03:57 Plt Count 150 10^3/cmm (157-399) L 06/27/24 03:57 MPV 11.2 fL (7.4-10.4) H 06/27/24 03:57 Neut % (Auto) 58.8 % 06/27/24 03:57 Lymph % (Auto) 31.4 % 06/27/24 03:57 Lake % (Auto) 6.9 % 06/27/24 03:57 Eos % (Auto) 1.2 % 06/27/24 03:57 Baso % (Auto) 1.2 % 06/27/24 03:57 Neut # (Auto) 2.48 10^3/uL (1.8-7.7) 06/27/24 03:57 Lymph # (Auto) 1.3 10^3/uL (0.8-4.8) 06/27/24 03:57 Lake # (Auto) 0.3 10^3/uL (0.2-0.9) 06/27/24 03:57 Eos # (Auto) 0.1 10^3/uL (0.0-0.8) 06/27/24 03:57 Baso # (Auto) 0.1 10^3/uL (0.0-0.1) 06/27/24 03:57 Nucleated RBC % (auto) 0 % 06/27/24 03:57 Nucleated RBCs # 0.0 /100WBC 06/27/24 03:57 Sodium 138 mmol/L (136-145) 06/27/24 03:57 Potassium 3.6 mmol/L (3.5-5.1) 06/27/24 03:57 Chloride 104 mmol/L (98-107) 06/27/24 03:57 Carbon Dioxide 25 mmol/L (22-29) 06/27/24 03:57 Anion Gap 12.6 (5-19) 06/27/24 03:57 BUN 14 mg/dL (8-23) 06/27/24 03:57 Creatinine 1.1 mg/dL (0.5-0.9) H 06/27/24 03:57 GFR Calculation 50.0 mL/min (90-130) L 06/27/24 03:57 Glucose 139 mg/dL (65-115) H 06/27/24 03:57 POC Glucose 123 mg/dL (70-110) H 06/27/24 10:48 Estimat Average Glucose 255 06/25/24 18:25 Hemoglobin A1c 10.5 % (4.0-6.0) H 06/25/24 18:25 Calculated Osmolality 289 mOsm/kg (285-295) 06/27/24 03:57 Lactic Acid 1.3 mmol/L (0.5-2.2) 06/25/24 18:25 Calcium 8.6 mg/dL (8.5-10.5) 06/27/24 03:57 Phosphorus 4.1 mg/dL (2.5-4.5) 06/26/24 05:32 Magnesium 1.9 mg/dL (1.7-2.3) 06/26/24 05:32 Total Bilirubin 0.4 mg/dL (0.15-1.2) 06/27/24 03:57 AST 23 U/L (0-32) 06/27/24 03:57 ALT 13 U/L (0-33) 06/27/24 03:57 Alkaline Phosphatase 63 U/L (35-105) 06/27/24 03:57 C-Reactive Protein 3.0 mg/L (0.0-4.9) 06/25/24 18:25 Total Protein 5.1 g/dL (6.6-8.7) L 06/27/24 03:57 Albumin 3.2 g/dL (3.5-5.2) L 06/27/24 03:57 Globulin 1.9 g/dL (1.3-4.6) 06/27/24 03:57 Lipase 34 U/L (13-60) 06/25/24 18:25 TSH 10.74 uIU/mL (0.27-4.20) H 06/25/24 18:25 Free T4 1.14 ng/dL (0.82-1.77) 06/25/24 18:52 Urine Color Yellow (Yellow) 06/25/24 19:08 Urine Appearance Clear (CLEAR) 06/25/24 19:08 Urine pH 7.5 (5-7) 06/25/24 19:08 Ur Specific [place] 1.032 (1.005-1.030) H 06/25/24 19:08 Urine Protein 3+ (Negative) A 06/25/24 19:08 Urine Glucose (UA) 3+ (Normal) H 06/25/24 19:08 Urine Ketones 1+ (Negative) H 06/25/24 19:08 Urine Blood Negative (Negative) 06/25/24 19:08 Urine Nitrate Negative (Negative) 06/25/24 19:08 Urine Bilirubin Negative (Negative) 06/25/24 19:08 Urine Urobilinogen 1.0 mg/dL (Negative) 06/25/24 19:08 Ur Leukocyte Esterase Trace (Negative) A 06/25/24 19:08 Urine RBC 0-2 /hpf (0-2) 06/25/24 19:08 Urine WBC 11-20 /hpf (0-5) H 06/25/24 19:08 Ur Squamous Epith Cells 0-5 /hpf (0-5) 06/25/24 19:08 Amorphous Sediment Not Reportable 06/25/24 19:08 Urine Bacteria Trace /hpf (NONE) 06/25/24 19:08 Hyaline Casts 0.40 /lpf 06/25/24 19:08 Serum Ketones Negative (Negative) 06/25/24 18:25 Adenovirus (PCR) Not detected (NOT DETECT) 06/26/24 08:55 C. pneumoniae DNA (PCR) Not detected (NOT DETECT) 06/26/24 08:55 Coronavirus 229E (PCR) Not detected (NOT DETECT) 06/26/24 08:55 Human Metapneumovir PCR Not detected (NOT DETECT) 06/26/24 08:55 Influenza A (H1) PCR Not detected (NOT DETECT) 06/26/24 08:55 Influ A (H1/09) PCR Not detected (NOT DETECT) 06/26/24 08:55 Influenza A (H3) PCR Not detected (NOT DETECT) 06/26/24 08:55 Influenza Type A (PCR) Not detected (NOT DETECT) 06/26/24 08:55 Influenza Type B (PCR) Not detected (NOT DETECT) 06/26/24 08:55 M. pneumoniae (PCR) Not detected (NOT DETECT) 06/26/24 08:55 Parainfluenza 1 (PCR) Not detected (NOT DETECT) 06/26/24 08:55 Parainfluenza 2 (PCR) Not detected (NOT DETECT) 06/26/24 08:55 Parainfluenza 3 (PCR) Not detected (NOT DETECT) 06/26/24 08:55 Parainfluenza 4 (PCR) Not detected (NOT DETECT) 06/26/24 08:55 RSV Type A (PCR) Not detected (NOT DETECT) 06/26/24 08:55 RSV Type B (PCR) Not detected (NOT DETECT) 06/26/24 08:55 Entero/Rhino (PCR) Not detected (NOT DETECT) 06/26/24 08:55 SARS-CoV-2 (PCR) Not detected (NOT DETECT) 06/26/24 08:55 Vitals Last Vital Signs Temp 98.9 F 06/27/24 11:28 Pulse 73 06/27/24 11:28 Resp 17 06/27/24 11:28 BP 143/65 06/27/24 13:22 Pulse Ox 97 06/27/24 13:18 O2 Del Method Nasal Cannula 06/27/24 11:28 O2 Flow Rate 2 06/27/24 04:59 Discharge Plan Discharge Patient Disposition: Home Condition: Stable Prescriptions: New cefdinir 300 mg capsule 300 mg PO BID 5 Days Qty: 10 0RF Continued glipizide 10 mg tablet 10 mg PO BID azathioprine 50 mg tablet 50 mg PO BID citalopram 20 mg tablet 20 mg PO DAILY cyanocobalamin (vitamin B-12) 1,000 mcg/mL solution See Rx Instructions .ROUTE .COMPLEX Rx Instructions: INJECTION ONCE PER MONTH. GET SHOT ON THE 12TH. pyridostigmine bromide 60 mg tablet 60 mg PO QID prednisone 10 mg tablet 10 mg PO DAILY levothyroxine 100 mcg tablet 100 mcg PO DAILY pramipexole 0.125 mg tablet See Rx Instructions .ROUTE .COMPLEX Rx Instructions: TAKE 1 TABLET BY MOUTH ONCE DAILY IN THE EVENING 2-3 HOURS BEFORE BEDTIME. atorvastatin 20 mg tablet 20 mg PO BEDTIME hydroxyzine HCl 10 mg tablet 10 - 20 mg PO Q6H PRN (Reason: anxiety/insomnia) insulin glargine [Lantus Solostar U-100 Insulin] 100 unit/mL (3 mL) insulin pen 20 unit SUBCUT DAILY Jardiance 10 mg tablet 10 mg PO DAILY Discharge Orders: Discharge Order (Routine); Ordered 06/27/24 Ordered By: Jackelyn Pickering Referrals: Ursula Pollard MD [Primary Care Provider] - 07/03/24 1:15 pm Discharge Diet: Usual diet Discharge Activity: Resume usual activity Patient Instructions: Opioid Safety Discharge Attestations Time Spent in Discharge Care*: greater than 30 min Quality Metrics Clinical Quality Measures [ No reported AMI, CVA or VTE this stay] Coding Level of Care Code Acute Code for Chg Fwd Diagnoses Myasthenia G70.00 Intractable nausea and vomiting R11.2 Vertigo R42 Type 2 diabetes mellitus E11.9 Hypertension I10 Headache R51.9 Hyperglycemia R73.9 Abnormal thyroid blood test R79.89 Abnormal urinalysis R82.90
--- NOTE | 2024-06-27 14:54 | PC.SOCIAL ---
Patient didnt qualify for oxygen at this time.
== END 2024-06-27 15:55 | disposition home or self-care (01) | DRG 637 ==
LOC: ER 19:00 → MEDSURG 23:39
PROVIDERS: Admitting Provider Internal Medicine; Emergency Provider Emergency Medicine; PCP Internal Medicine; Visit Provider Student in an Organized Health Care Education/Training Program
DX: E11.65 Type 2 diabetes mellitus with hyperglycemia (principal); G70.01 Myasthenia gravis with (acute) exacerbation; R42 Dizziness and giddiness; I10 Essential (primary) hypertension; R82.90 Unspecified abnormal findings in urine; E03.9 Hypothyroidism, unspecified; E78.5 Hyperlipidemia, unspecified; F32.A Depression, unspecified; Z79.84 Long term (current) use of oral hypoglycemic drugs; Z79.4 Long term (current) use of insulin; D50.9 Iron deficiency anemia, unspecified; R11.2 Nausea with vomiting, unspecified; E86.0 Dehydration
CPT/HCPCS: 36415; 36416; 70450; 70496; 70498; 70551; 71045; 80053; 81001; 82009; 82962; 83036; 83605; 83690; 83735; 84100; 84439; 84443; 85025; 86140; 87040; 87486; 87581; 87633; 93005; 94760; 96372; 96374; 96375; 99285; G0378; J0360; J0696; J0780; J1650; J1815; J2060; J2405; J7030; J8597; J9999

== ENCOUNTER 2024-06-29 12:42 | Oncology outpatient (recurring) (ONCR) | payer MEDICARE, OTHER, SELFPAY ==
[2024-06-29 13:03] VITALS: BP 159/78; PULSE 80
[2024-06-29] MEDS: [UNRECOGNIZED DRUG - OTHER] 1008 MG SUBCUT (13:21)
[2024-06-29 14:09] VITALS: BP 155/77; PULSE 94
== END 2024-06-29 23:59 | disposition home or self-care (01) ==
PROVIDERS: PCP Internal Medicine; Visit Provider Psychiatry & Neurology Neurology
DX: G70.01 Myasthenia gravis with (acute) exacerbation (principal); Z79.899 Other long term (current) drug therapy
CPT/HCPCS: 96372; J9334

== ENCOUNTER 2024-07-06 12:31 | Oncology outpatient (recurring) (ONCR) | payer MEDICARE, OTHER, SELFPAY ==
[2024-07-06] MEDS: [UNRECOGNIZED DRUG - OTHER] 1008 MG SUBCUT (13:43)
[2024-07-06 14:20] VITALS: BP 182/82; PULSE 78; RESP 17; TEMP 36.2; O2SAT 96
--- NOTE | 2024-07-06 14:22 | PC.NURSE ---
Prior to leaving this nurse took patient's discharged vitals and her blood pressure was 182/82. Patient said that she was going to go home and take her blood pressure medicine instead of going shopping. This nurse offered for the patient to sit and wait and we can retake her blood pressure and the patient said she will just go home and take her blood pressure medicine at home. Patient also has a way to monitor her blood pressure at home as well. Patient had no other questions or concerns at this time. Patient left ambulatory to private vehicle.
== END 2024-07-06 23:59 | disposition home or self-care (01) ==
PROVIDERS: PCP Internal Medicine; Visit Provider Psychiatry & Neurology Neurology
DX: G70.01 Myasthenia gravis with (acute) exacerbation (principal); Z79.899 Other long term (current) drug therapy; L60.1 Onycholysis; L57.8 Other skin changes due to chronic exposure to nonionizing radiation; L81.4 Other melanin hyperpigmentation; X32.XXXA Exposure to sunlight, initial encounter
CPT/HCPCS: 96372; 99213; J9334

== ENCOUNTER 2024-08-01 09:56 | Oncology outpatient (recurring) (ONCR) | payer MEDICARE, OTHER, SELFPAY ==
[2024-08-01] MEDS: [UNRECOGNIZED DRUG - OTHER] 1008 MG SUBCUT (10:42)
[2024-08-01 11:51] VITALS: BP 123/62; PULSE 68; RESP 16; TEMP 35.9; O2SAT 96
== END 2024-08-01 23:59 | disposition home or self-care (01) ==
PROVIDERS: PCP Internal Medicine; Visit Provider Psychiatry & Neurology Neurology
DX: G70.01 Myasthenia gravis with (acute) exacerbation (principal); Z79.899 Other long term (current) drug therapy
CPT/HCPCS: 96372; J9334

== ENCOUNTER 2024-08-09 12:54 | Oncology outpatient (recurring) (ONCR) | payer MEDICARE, OTHER, SELFPAY ==
[2024-08-09 13:05] VITALS: BP 133/78; PULSE 81; RESP 16; TEMP 36.4; O2SAT 97
[2024-08-09] MEDS: [UNRECOGNIZED DRUG - OTHER] 1008 MG SUBCUT (13:35)
== END 2024-08-09 23:59 | disposition home or self-care (01) ==
PROVIDERS: PCP Internal Medicine; Visit Provider Psychiatry & Neurology Neurology
DX: G70.01 Myasthenia gravis with (acute) exacerbation (principal); Z79.899 Other long term (current) drug therapy
CPT/HCPCS: 96372; J9334

== ENCOUNTER 2024-08-18 07:56 | Oncology outpatient (recurring) (ONCR) | payer MEDICARE, OTHER, SELFPAY ==
[2024-08-18] MEDS: [UNRECOGNIZED DRUG - OTHER] 1008 MG SUBCUT (08:26)
== END 2024-08-18 23:59 | disposition home or self-care (01) ==
PROVIDERS: PCP Internal Medicine; Visit Provider Psychiatry & Neurology Neurology
DX: G70.01 Myasthenia gravis with (acute) exacerbation (principal); Z79.899 Other long term (current) drug therapy
CPT/HCPCS: 96372; J9334

== ENCOUNTER 2024-08-24 08:02 | Oncology outpatient (recurring) (ONCR) | payer MEDICARE, OTHER, SELFPAY ==
[2024-08-24 08:15] VITALS: BP 171/76; PULSE 71; RESP 16; TEMP 36.2; O2SAT 97
[2024-08-24] MEDS: [UNRECOGNIZED DRUG - OTHER] 1008 MG SUBCUT (08:52)
[2024-08-24 09:24] VITALS: BP 177/69; PULSE 69; RESP 18; TEMP 36.3
--- NOTE | 2024-08-24 09:25 | PC.NURSE ---
patient did not take her BP med this am, states she monitors and will take medication when she gets home.
== END 2024-08-24 23:59 | disposition home or self-care (01) ==
LOC: ONCMED 08:02
PROVIDERS: PCP Internal Medicine; Visit Provider Psychiatry & Neurology Neurology
DX: D50.9 Iron deficiency anemia, unspecified (principal); G70.01 Myasthenia gravis with (acute) exacerbation; Z79.899 Other long term (current) drug therapy; Z53.9 Procedure and treatment not carried out, unspecified reason
CPT/HCPCS: 96372; J9334

== ENCOUNTER 2024-10-05 15:23 | Oncology outpatient (recurring) (ONCR) | payer MEDICARE, OTHER, SELFPAY ==
[2024-10-05] MEDS: [UNRECOGNIZED DRUG - OTHER] 1008 MG SUBCUT (16:10)
[2024-10-05 16:25] VITALS: BP 146/83; PULSE 82; RESP 16; TEMP 36.8; O2SAT 99
== END 2024-10-05 23:59 | disposition home or self-care (01) ==
PROVIDERS: PCP Internal Medicine; Visit Provider Psychiatry & Neurology Neurology
DX: G70.01 Myasthenia gravis with (acute) exacerbation (principal); Z79.899 Other long term (current) drug therapy
CPT/HCPCS: 96372; J9334

== ENCOUNTER → 2024-10-10 13:53 | Outpatient (BNVA) | payer MEDICARE, OTHER, SELFPAY | PROVIDERS: PCP Internal Medicine; Visit Provider Nurse Practitioner Family | DX: L60.1 Onycholysis (principal); L81.5 Leukoderma, not elsewhere classified; L57.8 Other skin changes due to chronic exposure to nonionizing radiation; L81.4 Other melanin hyperpigmentation; X32.XXXA Exposure to sunlight, initial encounter | CPT/HCPCS: 99213 ==

== ENCOUNTER 2024-10-12 14:00 | Oncology outpatient (recurring) (ONCR) | payer MEDICARE, OTHER, SELFPAY ==
[2024-10-12 14:25] VITALS: BP 107/66; PULSE 76; TEMP 36.4
[2024-10-12] MEDS: [UNRECOGNIZED DRUG - OTHER] 1008 MG SUBCUT (14:43)
== END 2024-10-12 23:59 | disposition home or self-care (01) ==
LOC: ONCMED 14:01
PROVIDERS: PCP Internal Medicine; Visit Provider Psychiatry & Neurology Neurology
DX: G70.01 Myasthenia gravis with (acute) exacerbation (principal); Z79.899 Other long term (current) drug therapy
CPT/HCPCS: 96372; J9334

== ENCOUNTER 2024-10-19 13:57 | Oncology outpatient (recurring) (ONCR) | payer MEDICARE, OTHER, SELFPAY ==
[2024-10-19] MEDS: [UNRECOGNIZED DRUG - OTHER] 1008 MG SUBCUT (15:08)
[2024-10-19 15:25] VITALS: BP 112/78; PULSE 78; RESP 17; TEMP 36.1; O2SAT 98
== END 2024-10-19 23:59 | disposition home or self-care (01) ==
PROVIDERS: PCP Internal Medicine; Visit Provider Psychiatry & Neurology Neurology
DX: G70.01 Myasthenia gravis with (acute) exacerbation (principal); Z79.899 Other long term (current) drug therapy
CPT/HCPCS: 96402; J9334

== ENCOUNTER 2024-10-26 14:03 | Oncology outpatient (recurring) (ONCR) | payer MEDICARE, OTHER, SELFPAY ==
[2024-10-26 14:15] VITALS: BP 134/73; PULSE 74; TEMP 36.1; O2SAT 99
[2024-10-26] MEDS: [UNRECOGNIZED DRUG - OTHER] 1008 MG SUBCUT (14:41)
== END 2024-10-29 23:59 | disposition home or self-care (01) ==
PROVIDERS: PCP Internal Medicine; Visit Provider Psychiatry & Neurology Neurology
DX: G70.01 Myasthenia gravis with (acute) exacerbation (principal); Z79.899 Other long term (current) drug therapy
CPT/HCPCS: 96372; J9334

== ENCOUNTER 2024-11-18 07:06 | Emergency (ER) | payer MEDICARE, OTHER, SELFPAY ==
[2024-11-18 07:07] VITALS: PULSE 85; RESP 18; TEMP 36.6; O2SAT 94
--- NOTE | 2024-11-18 07:11 | ECG_ITS ---
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 Measurements Intervals [place] Rate: 80 P: 32 MN: 183 QRS: -1 QRSD: 110 T: 68 QT: 388 QTc: 449 Interpretive Statements SINUS RHYTHM MODERATE VOLTAGE CRITERIA FOR LVH, CONSIDER NORMAL VARIANT [MEETS CRITERIA IN ONE OF: R(aVL), S(V1), R(V5), R(V5/V6)+S(V1)] NONSPECIFIC T-WAVE ABNORMALITY Compared to ECG 06/25/2024 18:42:29 No significant changes Electronically Signed On 11-18-2024 13:03:00 CDT by Ishan Martinez M.D. [id number]
--- NOTE | 2024-11-18 07:11 | CTR_ITS ---
PROCEDURE INFORMATION: Exam: CT Head Without Contrast Exam date and time: 11/18/2024 7:25 AM Age: 64 years old Clinical indication: Pain; Headache not specified; Additional info: ESTRELLA TECHNIQUE: Imaging protocol: Computed tomography of the head without contrast. Radiation optimization: All CT scans at this facility use at least one of these dose optimization techniques: automated exposure control; mA and/or kV adjustment per patient size (includes targeted exams where dose is matched to clinical indication); or iterative reconstruction. COMPARISON: MR head wo con* [id number] 06/26/2024 4:55 PM RADIATION DOSE METRICS: Total DLP (mGy-cm): 1037.98 FINDINGS: Brain: There is mild cerebral atrophy. No hemorrhage. Unremarkable white matter. No mass effect. Negative for intracranial mass. Negative for midline shift of the brain. [place]a matter and white matter interfaces are unremarkable. Cerebral ventricles: No ventriculomegaly. Paranasal sinuses: Visualized sinuses are unremarkable. No fluid levels. Mastoid air cells: Visualized mastoid air cells are well aerated. Bones: Unremarkable. No acute fracture. Soft tissues: Unremarkable. CT/CT head wo con* [id number] IMPRESSION: No acute intracranial abnormality.
--- OUTSIDE RECORDS SUMMARY | 2024-11-18 07:11 | XMS_ITS | Clinical Summary ---
[facility] Address [address] [place] [address] Care Team Providers Care Stage Set Up Worker Name Role Phone Unavailable Primary Care Provider Unavailabl e Medications glipiZIDE (GLUCOTROL) 10 mg tablet Take 1 Tablet by mouth 2 times daily. 4 Active predniSONE (DELTASONE) 10 mg tablet Take 1 Tablet by mouth daily. 4 Active levothyroxine 112 mcg tablet Take 1 Tablet by mouth daily. 4 Active citalopram (CeleXA) 20 mg tablet Take 1 Tablet by mouth daily. 4 Active pyRIDostigmine (MESTINON) 60 mg tablet Take 60 mg by mouth 4 times daily. Active azaTHIOprine (IMURAN) 50 mg tablet Take 50 mg by mouth 2 times daily. Active hydroCHLOROthi azide 50 mg tablet Take 50 mg by mouth 2 times daily. Active Lantus Solostar U-100 Insulin 100 unit/mL (3 mL) solution for injection INJECT 20 UNITS SUBCUTANEOUSLY ONCE DAILY 5 Active Hospital, Clinic, or Other Facility Administered Medication Ordered Dose Route Frequency Start Date End Date Status fluorescein (AK-LIBERTAD, FLUORESCITE) 500 mg/5 mL (10 %) injection 1 mLIndications:Diabeti c macular edema of both eyes (CMS/HCC) 1 mL IV ONE TIME ONLY 08/08/2024 Ac tive tropicamide (MYDRIACYL) 1 % ophthalmic solution 1 DropIndications:Non-p roliferative diabetic retinopathy (CMS/HCC) 1 Drop Both Eyes ONE TIME ONLY 08/04/2024 Active phenylephrine 2.5 % ophthalmic solution 1 DropIndications:Non-p roliferative diabetic retinopathy (CMS/HCC) 1 Drop Both Eyes ONE TIME ONLY 08/04/2024 Active sodium chloride 0.9% vial - DILUENTIndications:Di abetic macular edema of both eyes (CMS/HCC) 3 mL IV ONE TIME ONLY 08/08/2024 Active bevacizumab (AVASTIN) 2.25 mg/0.09 mL intravitreal injection 1.25 mg 1.25 mg IZ ONE TIME ONLY 10/03/2024 Acti ve bevacizumab (AVASTIN) 2.25 mg/0.09 mL intravitreal injection 1.25 mg 1.25 mg IZ ONE TIME ONLY 10/03/2024 Acti ve Active Problems Problem Noted Date Diagnosed Date Type 2 diabetes mellitus wit h 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 and macular edema, without long-term current use of insulin 08/17/2024 Encounters Date Type Department Care Team Description 11/14/2024 External Device Data ST[facility] ABSTRACTION Provider, Abstract 10/31/2024 External Device Data [facility] ABSTRACTION Provider, Abstract 10/18/2024 External Device Data [place] ABSTRACTION Provider, Abstract 10/03/2024 8:10 AM CDT Office Visit [facility] [place] [address] [address] Nathan Ya MD Type 2 diabetes mellitus with 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 and macular edema, without long-term current use of insulin ([facility]) (Primary Dx) 09/13/2024 External Device Data [place] ABSTRACTION Provider, Abstract 09/13/2024 External Device Data [facility] ABSTRACTION Provider, Abstract 08/22/2024 External Device Data [facility] ABSTRACTION Provider, Abstract 08/22/2024 External Device Data [facility] ABSTRACTION Provider, Abstract 08/22/2024 External Device Data [facility] ABSTRACTION Provider, Abstract from Last 3 Months Family History Medical History Relation Name Comments Diabetes Brother 1 Kunal Hypertension Brother 1 Kunal Cancer Father Hypertension Father Cancer Mother Cataract Mother Hypertension Mother Cataract Sister 1 Luna(identical twin) Detachment/Tears Sister 1 Luna(identical twin) Diabetes Sister 1 Luna(identical twin) Hypertension Sister 1 Luna(identical twin) Macular Degen Sister 1 Luna(identical twin) Thyroid Disease Sister 1 Luna(identical twin) Diabetes Sister 2 Lou Hypertension Sister 2 Lou Cancer Sister 3 Gin(Sarah) Thyroid Disease Sister 3 Gin(Sarah) Relation Name Status Comments Brother 1 Kunal Alive Brother 2 Donne Alive Brother 3 Immanuel Alive Father Mother Sister 1 Luna(identical twin) Alive Sister 2 Lou Alive Sister 3 Gin(Sarah) Social History Tobacco Use Types Packs/Day Years Used Date Smoking Tobacco: Never Smokeless Tobacco: Never Tobacco Cessation:Counseling Given: Not Answered Comments Unknown Sex and Gender Information Value Date Recorded Sex Assigned at Not on file 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 Gender Identity Not on file Sexual Orientation Not on file Plan of Treatment Upcoming Encounters Date Type Department Care Team (Late st Contact Info) Description 11/21/2024 2:40 PM CDT Office Visit [facility] [place] [address] [place] [address] Nathan Ya MD [address] [place] [address] Health Maintenance Due Date Last Done Comments DIABETES ANNUAL FOOT EXAM 11/06/1977 DIABETES HBA1C Q 6 MONTHS 11/06/1977 DIABETES MICROALBUMIN ANNUAL SCREEN 11/06/1977 LDL CHOLESTEROL ANNUAL 11/06/1977 DTAP/TDAP/TD VACCINES (1 - Tdap) 11/06/1978 PNEUMOCOCCAL VACCINE 50+ YEA RS (1 of 2 - PCV) 11/06/1978 BREAST CANCER SCREENING 1999 COLORECTAL SCREENING 11/06/2004 Colorectal Cancer Screening 11/06/2004 FIT-DNA Q 3 years 11/06/2004 FIT/FOBT Q 1 year 11/06/2004 Flex Sig/CT Colonography Q 5 years 11/06/2004 ZOSTER VACCINE (1 of 2) 11/06/2009 RSV VACCINE (60+ or ) (1 - Risk 60-74 years 1-dose series) 2019 INFLUENZA VACCINE (#1) 2024 OSTEOPOROSIS SCREENING 11/06/2024 DIABETES ANNUAL RETINAL EXAM 10/03/202506/2024, 08/17/2024, 08/17/2024, Additional history exists Procedures Procedure Name Priority Date/Time Associated Diagnosis Comments INTRAVITREAL INJECTION, PHARMACOLOGIC AGENT - OU - BOTH EYES Routine 10/03/2024 9:08 AM CDT Type 2 diabetes mellitus with 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 and macular edema, without long-term current use of insulin ([facility]) EYE DROPS Routine 10/03/2024 9:07 AM CDT Type 2 diabetes mellitus with 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 and macular edema, without long-term current use of insulin ([facility]) OCT, RETINA - OU - BOTH EYES Routine 10/03/2024 8:46 AM CDT Type 2 diabetes mellitus with 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 and macular edema, without long-term current use of insulin ([facility]) EYE DROPS Routine 10/03/2024 8:27 AM CDT Type 2 diabetes mellitus with 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 Anesthesia Topical anesthesia was used. Anesthetic medications included Tetracaine 0.5%, Tetravisc 0.5%. Procedure Right Eye Preparation included 0.25% betadine irrigation. Injection: 1.25 mg bevacizumab 2.25 mg/0.09 mL Route: Intravitreal, Site: Eye, Right [facility]: 84692-828-82, Lot: [id number] Left Eye Preparation included 0.25% betadine irrigation. Injection: 1.25 mg bevacizumab 2.25 mg/0.09 mL Route: Intravitreal, Site: Eye, Left [facility]: 83589-192-28, Lot: 2 Post-op Right Eye Post injection exam found visual acuity of at least counting fingers. The patient tolerated the procedure well. There were no complications. The patient received written and verbal post procedure care education. Left Eye Post injection exam found visual acuity of at least counting fingers. The patient tolerated the procedure well. There were no complications. The patient received written and verbal post procedure care education. Notes Lot numbers on consent us Nathan Ya MD OPH CLINIC PROCEDURES Fin al Result [facility] CLIA# [id number] [address] [address] * EYE DROPS (10/03/2024 9:07 AM CDT) Narrative [facility] - 10/03/2024 9:07 AM CDT Medications Eye Drops: 3 Drop lidocaine PF (AKTEN PF) 3.5 % ophthalmic gel Route: Both Eyes NDC: 80821-502-82, Lot: [id number], Expiration date: 09/29/2026 5 Drop povidone-iodine 0.25 % in balanced salt solution eye prep solution Route: Both Eyes NDC: 7754-9062-55-18-001, Lot: [id number] 2 Drop proparacaine (OPHTHAINE) 0.5% ophthalmic solution Route: Both Eyes NDC: 92438-266-06, Lot: [id number], Expiration date: 04/28/2026 4 Drop tetracaine (AK-T-ALYSIA) 0.5% ophthalmic solution Route: Both Eyes NDC: 40621-503-80, Lot: [id number], Expiration date: 10/30/2025 us Nathan Ya MD OPHTH CLINIC PROCEDURES Fin al Result Performing Organization Address [facility] Co de Phone Number [facility] CLIA# [id number] [address] [address] * OCT, RETINA - OU - BOTH EYES (10/03/2024 8:46 AM CDT) Narrative [facility] [place] [facility] [place] - 10/03/2024 9:06 AM CDT Right Eye Quality was good. Left Eye Quality was good. Notes Optical Coherence Tomography ordered to evaluate the status of the macula: Right Eye: mild diabetic macular edema, improved Left Eye: mild diabetic macular edema -improved, mild VMT stable Nathan Ya MD OPHTH TOMOGRAPHY Final Resu lt Performing Organization Address [facility] Co de Phone Number [facility] [place] [facility] * EYE DROPS (10/03/2024 8:27 AM CDT) Narrative [facility] - 10/03/2024 9:06 AM CDT Medications Eye Drops: 1 Drop NO DIL Route: Both Eyes NDC: 12774-232-57, Lot: [id number], Expiration date: 04/01/2026 Nathan Ya MD OPHTH CLINIC PROCEDURES Fin al Result [facility] CLIA# [id number] [address] [place] [address] from Last 3 Months Insurance MEDICARE PART A AND B [facility]
[2024-11-18 07:12] VITALS: BP 208/100
--- OUTSIDE RECORDS SUMMARY | 2024-11-18 07:12 | XMS_ITS | Encounter Summary ---
Author Organization [facility] Address 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
--- NOTE | 2024-11-18 07:15 | W.ED.NAVMDI ---
HPI - Nausea/Vomiting/Diarrhea General: Chief complaint: Nausea/Vomiting/Diarrhea Stated complaint: hypertension; nausea Time Seen by Provider: 11/18/24 07:07 Source: patient and EMS Mode of arrival: EMS Limitations: no limitations History of Present Illness: 64-year-old female has a history of hypertension states she has been under a lot of stress lately states she woke up this morning mild headache not feeling well states she took her blood pressure was elevated she tried to take blood pressure meds and then vomited. She rates her headache a 4 out of 10 she denies any slurred speech. She denies any chest pain denies any abdominal pain. Associated nausea: Yes Associated symtoms: Reports headache(s) and nausea; Denies chest pain Related Data Home Medications ?Medication ?Instructions ?Recorded ?Confirmed azathioprine 50 mg tablet 50 mg PO BID 07/08/19 11/18/24 citalopram 20 mg tablet 20 mg PO DAILY 07/08/19 11/18/24 cyanocobalamin (vitamin B-12) See Rx Instructions .Route .COMPLEX 07/08/19 11/18/24 1,000 mcg/mL injection solution glipizide 10 mg tablet 10 mg PO BID 07/08/19 11/18/24 pyridostigmine bromide 60 mg tablet 60 mg PO QID 07/08/19 11/18/24 levothyroxine 100 mcg tablet 100 mcg PO DAILY 04/11/24 11/18/24 pramipexole 0.125 mg tablet See Rx Instructions .Route .COMPLEX 04/11/24 11/18/24 prednisone 10 mg tablet 10 mg PO DAILY 04/11/24 11/18/24 atorvastatin 20 mg tablet 20 mg PO BEDTIME 06/26/24 11/18/24 insulin glargine 100 unit/mL (3 20 unit SUBCUT DAILY 06/26/24 11/18/24 mL) subcutaneous pen (Lantus Solostar U-100 Insulin) hydralazine 25 mg tablet 25 mg PO TID 11/18/24 11/18/24 semaglutide 0.25 mg or 0.5 mg (2 0.25 mg SUBCUT Q7D 11/18/24 11/18/24 mg/3 mL) subcutaneous pen injector (Ozempic) Previous Rx's ?Medication ?Instructions ?Recorded ondansetron 4 mg disintegrating 4 mg PO Q6H PRN nausea and 11/18/24 tablet vomiting #14 tabs Allergies Allergy/AdvReac Type Severity Reaction Status Date / Time Aminoglycosides Allergy Unknown Verified 06/25/24 18:00 Beta-Blockers Allergy Unknown Verified 06/25/24 18:00 (Beta-Adrenergic Bloc Calcium Channel Blocking Allergy Unknown Verified 06/25/24 18:00 Agent Dilt Corticosteroids Allergy Unknown Verified 06/25/24 18:00 (Glucocorticoids) Interferons Allergy Unknown Verified 06/25/24 18:00 magnesium Allergy ALGY-Anaphy Verified 06/25/24 18:00 laxis metoclopramide (From Reglan) Allergy Unknown Verified 06/25/24 18:00 NSAIDS (Non-Steroidal Allergy Unknown Verified 06/25/24 18:00 Anti-Inflamma quinidine Allergy Unknown Verified 06/25/24 18:00 quinine Allergy Unknown Verified 06/25/24 18:00 succinylcholine Allergy Unknown Verified 06/25/24 18:00 narcotics Allergy Unknown Uncoded 06/25/24 18:00 Review of Systems Const: Denies: fever(s) Card: Denies: chest pain Resp: Denies: dyspnea GI: Reports: nausea and vomiting Musc: Denies: neck pain Neuro: Reports: headache(s) PFS ED PFSH: Medical History Diabetes Myasthenia Hypothyroidism Social History Smoking and tobacco/nicotine status: never used tobacco/nicotine Alcohol intake: never Substance/Drug Use: never Physical Exam Const: COMMON NORMALS: no acute distress, patient oriented x3 and healthy appearing HENMT: COMMON NORMALS: normocephalic and atraumatic HEAD & SCALP: normocephalic and atraumatic Eye: COMMON NORMALS: Equal, round and reactive pupils present and EOMs intact bilaterally PUPIL: Yes Equal, round and reactive pupils present Neck/C-Spine: COMMON NORMALS: full ROM and supple Chest: COMMONS NORMALS: normal inspection of the chest Resp: COMMON NORMALS: normal respiratory effort, No retractions, No use of accessory muscles and clear to auscultation bilaterally AUSCULTATION: clear to auscultation bilaterally Cardio: COMMON NORMALS: regular rate, regular rhythm and No murmurs present (Cardio) RATE: regular rate RHYTHM: regular rhythm GI: COMMON NORMALS: Normal to inspection, nondistended, normoactive bowel sounds present, Soft to palpation, non-tender and no masses PALPATION: Yes Soft to palpation Extremity: COMMON NORMALS: normal to inspection and full ROM Neuro: COMMON NORMALS: patient oriented x3, moves all extremities and no focal motor deficits Psych: COMMON NORMALS: mental status grossly normal, Normal thought process present and cooperative THOUGHT PROCESS: Normal thought process present Skin: COMMON NORMALS: no rashes or lesions noted and no wounds GENERAL SKIN EXAM: no rashes or lesions noted Course Vital Signs: Vital signs: Vital Signs Temperature 97.8 F 11/18/24 07:07 Pulse Rate 90 11/18/24 08:09 Respiratory Rate 18 11/18/24 07:07 Blood Pressure 124/53 11/18/24 08:09 Pulse Oximetry 90 11/18/24 08:09 Oxygen Delivery Me thod Room Air 11/18/24 07:07 MDM - Nausea/Vomiting/Diarrhea Medical Decision Making Patient presents here with nausea vomiting has had a history intractable vomiting in the past she also had hypertension along with headache her symptoms are much improved here after Zofran she has been able to tolerate p.o. her blood pressures improved after hydralazine is currently 121/55. Head CT is normal no signs of stroke or hemorrhage her abdominal exam is benign no signs of bowel obstruction or acute surgical abdomen I did review patient's labs which are normal as well reviewed all these findings with patient's and family she is stable for discharge we will prescribe her Zofran. She is follow-up her PCP and return if worsening Medical Records I reviewed the patient's medical records. Lab Data I reviewed the patient's lab results. 11/18/24 07:16 11/18/24 07:[address] 11/18/24 07:11 IMPRESSION: No acute intracranial abnormality. Laboratory Results WBC 2.81 10^3/uL (3.29-11.43) L 11/18/24 07:16 RBC 3.53 10^6/uL (3.85-5.65) L 11/18/24 07:16 Hgb 11.80 g/dL (11.27-16.99) 11/18/24 07:16 Hct 33.2 % (36-47) L 11/18/24 07:16 MCV 94.1 fl (85-98) 11/18/24 07:16 MCH 33.4 pg (27-33) H 11/18/24 07:16 MCHC 35.5 g/dL (30-55) 11/18/24 07:16 RDW 12.7 % (12.1-15.1) 11/18/24 07:16 Plt Count 118 10^3/cmm (157-399) L 11/18/24 07:16 MPV 10.2 fL (7.4-10.4) 11/18/24 07:16 Neut % (Auto) 58.0 % 11/18/24 07:16 Lymph % (Auto) 30.2 % 11/18/24 07:16 [place] % (Auto) 8.5 % 11/18/24 07:16 Eos % (Auto) 1.8 % 11/18/24 07:16 Baso % (Auto) 1.1 % 11/18/24 07:16 Neut # (Auto) 1.63 10^3/uL (1.8-7.7) L 11/18/24 07:16 Lymph # (Auto) 0.9 10^3/uL (0.8-4.8) 11/18/24 07:16 [place] # (Auto) 0.2 10^3/uL (0.2-0.9) 11/18/24 07:16 Eos # (Auto) 0.1 10^3/uL (0.0-0.8) 11/18/24 07:16 Baso # (Auto) 0.0 10^3/uL (0.0-0.1) 11/18/24 07:16 Nucleated RBC % (auto) 0 % 11/18/24 07:16 Nucleated RBCs # 0.0 /100WBC 11/18/24 07:16 Sodium 142 mmol/L (136-145) 11/18/24 07:16 Potassium 3.7 mmol/L (3.5-5.1) 11/18/24 07:16 Chloride 103 mmol/L (98-107) 11/18/24 07:16 Carbon Dioxide 29 mmol/L (22-29) 11/18/24 07:16 Anion Gap 13.7 (5-19) 11/18/24 07:16 BUN 12 mg/dL (8-23) 11/18/24 07:16 Creatinine 0.6 mg/dL (0.5-0.9) 11/18/24 07:16 GFR Calculation 100.3 mL/min (90-130) 11/18/24 07:16 Glucose 330 mg/dL (65-115) H 11/18/24 07:16 Calculated Osmolality 307 mOsm/kg (285-295) H 11/18/24 07:16 Calcium 9.9 mg/dL (8.5-10.5) 11/18/24 07:16 Total Bilirubin 0.8 mg/dL (0.15-1.2) 11/18/24 07:16 AST 22 U/L (0-32) 11/18/24 07:16 ALT 20 U/L (0-33) 11/18/24 07:16 Alkaline Phosphatase 75 U/L (35-105) 11/18/24 07:16 Total Protein 6.5 g/dL (6.6-8.7) L 11/18/24 07:16 Albumin 4.1 g/dL (3.5-5.2) 11/18/24 07:16 Globulin 2.4 g/dL (1.3-4.6) 11/18/24 07:16 Lipase 30 U/L (13-60) 11/18/24 07:16 All radiology interpretation(s) finalized by discharge EKG Data EKG 1: I personally reviewed and interpreted this EKG as follows: EKG interpretation date: 11/18/24 EKG interpretation time: 07:18 Interpretation: nsr hr [address] elevation qrs 110 qtc 424 Discharge Plan Discharge Patient Disposition: Home Clinical Impression: Hypertension Qualifiers: Hypertension type: unspecified Qualified Code(s): I10 - Essential (primary) hypertension Headache Qualifiers: Headache chronicity pattern: unspecified pattern Vomiting Qualifiers: Vomiting type: unspecified Nausea presence: with nausea Qualified Code(s): R11.2 - Nausea with vomiting, unspecified Condition: Stable Prescriptions: New ondansetron 4 mg tablet,disintegrating 4 mg PO Q6H PRN (Reason: nausea and vomiting) Qty: 14 0RF No Action glipizide 10 mg tablet 10 mg PO BID azathioprine 50 mg tablet 50 mg PO BID citalopram 20 mg tablet 20 mg PO DAILY cyanocobalamin (vitamin B-12) 1,000 mcg/mL solution See Rx Instructions .ROUTE .COMPLEX Rx Instructions: INJECTION ONCE PER MONTH. GET SHOT ON THE 12TH. pyridostigmine bromide 60 mg tablet 60 mg PO QID prednisone 10 mg tablet 10 mg PO DAILY levothyroxine 100 mcg tablet 100 mcg PO DAILY pramipexole 0.125 mg tablet See Rx Instructions .ROUTE .COMPLEX Rx Instructions: TAKE 1 TABLET BY MOUTH ONCE DAILY IN THE EVENING 2-3 HOURS BEFORE BEDTIME NEEDED. atorvastatin 20 mg tablet 20 mg PO BEDTIME insulin glargine [Lantus Solostar U-100 Insulin] 100 unit/mL (3 mL) insulin pen 20 unit SUBCUT DAILY hydralazine 25 mg tablet 25 mg PO TID Ozempic 0.25 mg or 0.5 mg (2 mg/3 mL) pen injector 0.25 mg SUBCUT Q7D Discharge Orders: Discharge ED (Routine); Ordered 11/18/24 Ordered By: Celina Knight Referrals: Ursula Pollard MD [Primary Care Provider, Internal Medicine] - 4-7 days Discharge Diet: Advance as tolerated Discharge Activity: Resume usual activity Patient Instructions: Acute Nausea and Vomiting (ED), Hypertension (ED) Print Language: Italian Coding Level of Care Code ED Library Assistant for Adolfo Da Silva
[2024-11-18 07:22] LABS: Hematocrit 33.2 % (36-47); Hemoglobin 11.80 g/dL (11.27-16.99); Mean Corpuscular HGB Conc 35.5 g/dL (30-55); Mean Corpuscular Hemoglobin 33.4 pg (27-33); Mean Corpuscular Volume 94.1 fl (85-98); Nucleated Red Blood Cells % 0 %; Platelet Count 118 10^3/cmm (157-399); Red Blood Count 3.53 10^6/uL (3.85-5.65); White Blood Count 2.81 10^3/uL (3.29-11.43)
[2024-11-18] MEDS: hyDRALAzine 20 mg/mL INJ 1 mL 10 MG IVP (07:25)
[2024-11-18] MEDS: ondansetron 2 mg/ML SDV 2 mL 4 MG IVP (07:25)
[2024-11-18 07:37] LABS: Alanine Aminotransferase 20 U/L (0-33); Albumin Level 4.1 g/dL (3.5-5.2); Alkaline Phosphatase 75 U/L (35-105); Anion Gap 13.7 (5-19); Aspartate Amino Transferase 22 U/L (0-32); Blood Urea Nitrogen 12 mg/dL (8-23); Calcium 9.9 mg/dL (8.5-10.5); Carbon Dioxide 29 mmol/L (22-29); Chloride 103 mmol/L (98-107); Globulin 2.4 g/dL (1.3-4.6); Glucose 330 mg/dL (65-115); Lipase 30 U/L (13-60); Osmolality Calculated 307 mOsm/kg (285-295); Potassium 3.7 mmol/L (3.5-5.1); Sodium 142 mmol/L (136-145); Total Protein 6.5 g/dL (6.6-8.7)
[2024-11-18 08:09] VITALS: BP 124/53; PULSE 90; O2SAT 90
[2024-11-18 09:26] VITALS: BP 110/57; PULSE 97; O2SAT 93
[2024-11-18 10:36] VITALS: BP 109/58; PULSE 65; O2SAT 98
== END 2024-11-18 10:37 | disposition home or self-care (01) ==
PROVIDERS: Emergency Provider Emergency Medicine; PCP Internal Medicine
DX: I10 Essential (primary) hypertension (principal); R51.9 Headache, unspecified; R11.2 Nausea with vomiting, unspecified; Z79.4 Long term (current) use of insulin; E11.9 Type 2 diabetes mellitus without complications
CPT/HCPCS: 36415; 70450; 80053; 83690; 85025; 93005; 96374; 96375; 99285; J0360; J2405

== ENCOUNTER → 2024-11-29 09:15 | Outpatient (BNVA) | payer MEDICARE, OTHER, SELFPAY | PROVIDERS: PCP Internal Medicine; Visit Provider Nurse Practitioner Family | DX: L81.4 Other melanin hyperpigmentation (principal); D69.2 Other nonthrombocytopenic purpura; L90.5 Scar conditions and fibrosis of skin; L81.5 Leukoderma, not elsewhere classified; L57.8 Other skin changes due to chronic exposure to nonionizing radiation; X32.XXXA Exposure to sunlight, initial encounter | CPT/HCPCS: 99213 ==

== ENCOUNTER 2024-11-30 13:48 | Oncology outpatient (recurring) (ONCR) | payer MEDICARE, OTHER, SELFPAY ==
[2024-11-30 14:01] VITALS: BP 126/65; PULSE 78; TEMP 36; O2SAT 97
[2024-11-30] MEDS: [UNRECOGNIZED DRUG - OTHER] 1008 MG SUBCUT (14:32)
[2024-11-30 14:44] VITALS: BP 121/69; PULSE 85; RESP 18; TEMP 36.1; O2SAT 94
== END 2024-11-30 23:59 | disposition home or self-care (01) ==
PROVIDERS: PCP Internal Medicine; Visit Provider Psychiatry & Neurology Neurology
DX: G70.01 Myasthenia gravis with (acute) exacerbation (principal); Z79.899 Other long term (current) drug therapy
CPT/HCPCS: 96401; J9334

== ENCOUNTER 2024-12-07 13:47 | Oncology outpatient (recurring) (ONCR) | payer MEDICARE, OTHER, SELFPAY ==
[2024-12-07 14:03] VITALS: BP 139/65; PULSE 88; O2SAT 97
[2024-12-07] MEDS: [UNRECOGNIZED DRUG - OTHER] 1008 MG SUBCUT (14:22)
== END 2024-12-07 23:59 | disposition home or self-care (01) ==
LOC: ONCMED 13:47
PROVIDERS: PCP Internal Medicine; Visit Provider Psychiatry & Neurology Neurology
DX: G70.01 Myasthenia gravis with (acute) exacerbation (principal); Z79.899 Other long term (current) drug therapy
CPT/HCPCS: 96372; 96377; J9334

== ENCOUNTER 2024-12-14 13:51 | Oncology outpatient (recurring) (ONCR) | payer MEDICARE, OTHER, SELFPAY ==
[2024-12-14] MEDS: [UNRECOGNIZED DRUG - OTHER] 1008 MG SUBCUT (14:18)
[2024-12-14 14:26] VITALS: BP 108/64; PULSE 68; O2SAT 97
== END 2024-12-14 23:59 | disposition home or self-care (01) ==
LOC: ONCMED 13:52
PROVIDERS: PCP Internal Medicine; Visit Provider Psychiatry & Neurology Neurology
DX: G70.01 Myasthenia gravis with (acute) exacerbation (principal); Z79.899 Other long term (current) drug therapy
CPT/HCPCS: 96372; J9334

== ENCOUNTER 2024-12-21 13:44 | Oncology outpatient (recurring) (ONCR) | payer MEDICARE, OTHER, SELFPAY ==
[2024-12-21 14:01] VITALS: BP 157/74; PULSE 76
[2024-12-21] MEDS: [UNRECOGNIZED DRUG - OTHER] 1008 MG SUBCUT (14:15)
== END 2024-12-21 23:59 | disposition home or self-care (01) ==
PROVIDERS: PCP Internal Medicine; Visit Provider Psychiatry & Neurology Neurology
DX: G70.01 Myasthenia gravis with (acute) exacerbation (principal); Z79.899 Other long term (current) drug therapy
CPT/HCPCS: 96401; J9334

== ENCOUNTER 2025-01-10 14:13 | Outpatient (CLI) | payer MEDICARE, OTHER, SELFPAY ==
--- NOTE | 2025-01-10 14:34 | XR_ITS ---
WS: [id number] Exam: XR foot RT min 3V* [id number] Date/Time of Exam: 01/10/2025 2:38 PM Reason For Exam: PAIN IN RIGHT FOOT There is a spiral midshaft fracture of the fifth metatarsal. Position appears satisfactory for healing. Only minimal displacement. No other fractures. Degenerative changes in the midfoot and the first MP joint. Vascular calcifications about the ankle and foot. No soft tissue foreign bodies. Lateral soft tissue swelling. XR/XR foot RT min 3V* [id number] IMPRESSION: 1. Mid shaft fracture of the fifth metatarsal in satisfactory alignment for deann pollard.
== END 2025-01-10 14:14 | disposition home or self-care (01) ==
LOC: RAD 14:17
PROVIDERS: PCP Internal Medicine; Visit Provider Internal Medicine
DX: M79.671 Pain in right foot (principal); S92.354D Nondisplaced fracture of fifth metatarsal bone, right foot, subsequent encounter for fracture with routine healing; X58.XXXD Exposure to other specified factors, subsequent encounter; M19.071 Primary osteoarthritis, right ankle and foot; M61.471 Other calcification of muscle, right ankle and foot
CPT/HCPCS: 73630

== ENCOUNTER 2025-01-15 13:41 | Outpatient (CLI) | payer MEDICARE, OTHER, SELFPAY | END 2025-01-15 13:42 | disposition home or self-care (01) | LOC: SPT 13:42 | PROVIDERS: PCP Internal Medicine; Visit Provider Podiatrist Foot & Ankle Surgery | DX: Z46.89 Encounter for fitting and adjustment of other specified devices (principal); S92.351D Displaced fracture of fifth metatarsal bone, right foot, subsequent encounter for fracture with routine healing; X58.XXXD Exposure to other specified factors, subsequent encounter | CPT/HCPCS: L4361 ==

== ENCOUNTER 2025-01-23 13:38 | Oncology outpatient (recurring) (ONCR) | payer MEDICARE, OTHER, SELFPAY ==
[2025-01-23] MEDS: [UNRECOGNIZED DRUG - OTHER] 1008 MG SUBCUT (14:18)
[2025-01-23 15:09] VITALS: BP 147/75; PULSE 80; RESP 18; TEMP 36.2; O2SAT 97
== END 2025-01-23 23:59 | disposition home or self-care (01) ==
PROVIDERS: PCP Internal Medicine; Visit Provider Psychiatry & Neurology Neurology
DX: G70.01 Myasthenia gravis with (acute) exacerbation (principal); Z79.899 Other long term (current) drug therapy
CPT/HCPCS: 96402; J9334

== ENCOUNTER 2025-01-30 13:26 | Oncology outpatient (recurring) (ONCR) | payer MEDICARE, OTHER, SELFPAY ==
[2025-01-30 13:46] VITALS: BP 140/79; PULSE 74; TEMP 36.3; O2SAT 96
[2025-01-30] MEDS: [UNRECOGNIZED DRUG - OTHER] 1008 MG SUBCUT (14:37)
[2025-01-30 15:34] LABS: Hematocrit 29.8 % (36-47); Hemoglobin 10.30 g/dL (11.27-16.99); Mean Corpuscular HGB Conc 34.6 g/dL (30-55); Mean Corpuscular Hemoglobin 33.8 pg (27-33); Mean Corpuscular Volume 97.7 fl (85-98); Nucleated Red Blood Cells % 0 %; Platelet Count 147 10^3/cmm (157-399); Red Blood Count 3.05 10^6/uL (3.85-5.65); White Blood Count 3.71 10^3/uL (3.29-11.43)
[2025-01-30 15:50] LABS: Alanine Aminotransferase 45 U/L (0-33); Albumin Level 4.2 g/dL (3.5-5.2); Alkaline Phosphatase 69 U/L (35-105); Anion Gap 13.1 (5-19); Aspartate Amino Transferase 57 U/L (0-32); Blood Urea Nitrogen 23 mg/dL (8-23); Calcium 9.2 mg/dL (8.5-10.5); Carbon Dioxide 27 mmol/L (22-29); Chloride 106 mmol/L (98-107); Globulin 2.2 g/dL (1.3-4.6); Glucose 201 mg/dL (65-115); Osmolality Calculated 301 mOsm/kg (285-295); Potassium 5.1 mmol/L (3.5-5.1); Sodium 141 mmol/L (136-145); Total Protein 6.4 g/dL (6.6-8.7)
[2025-01-30 16:05] LABS: Vitamin B12 983 pg/mL (232-1245)
[2025-01-31 06:30] LABS: PROTEIN, TOTAL 6.0 g/dL (6.1-8.1)
[2025-01-31 19:40] LABS: ALPHA 1 GLOBULIN 0.3 g/dL (0.2-0.3); ALPHA 2 GLOBULIN 0.7 g/dL (0.5-0.9); BETA 1 GLOBULIN 0.4 g/dL (0.4-0.6); BETA 2 GLOBULIN 0.3 g/dL (0.2-0.5)
== END 2025-01-30 23:59 | disposition home or self-care (01) ==
PROVIDERS: PCP Internal Medicine; Visit Provider Psychiatry & Neurology Neurology
DX: G70.01 Myasthenia gravis with (acute) exacerbation (principal); Z79.899 Other long term (current) drug therapy; Z53.9 Procedure and treatment not carried out, unspecified reason
CPT/HCPCS: 36415; 80053; 82607; 84155; 84165; 85025; 96372; J9334

== ENCOUNTER 2025-02-06 13:44 | Oncology outpatient (recurring) (ONCR) | payer MEDICARE, OTHER, SELFPAY ==
[2025-02-06] MEDS: [UNRECOGNIZED DRUG - OTHER] 1008 MG SUBCUT (14:47)
[2025-02-06 15:07] VITALS: BP 108/67; PULSE 69; RESP 16; TEMP 36.4; O2SAT 98
== END 2025-02-06 23:59 | disposition home or self-care (01) ==
LOC: ONCMED 13:44
PROVIDERS: PCP Internal Medicine; Visit Provider Psychiatry & Neurology Neurology
DX: G70.01 Myasthenia gravis with (acute) exacerbation (principal); Z79.899 Other long term (current) drug therapy; S92.351A Displaced fracture of fifth metatarsal bone, right foot, initial encounter for closed fracture; X58.XXXA Exposure to other specified factors, initial encounter
CPT/HCPCS: 73630; 96372; J9334

== ENCOUNTER 2025-02-13 14:01 | Oncology outpatient (recurring) (ONCR) | payer MEDICARE, OTHER, SELFPAY ==
[2025-02-13] MEDS: [UNRECOGNIZED DRUG - OTHER] 1008 MG SUBCUT (15:12)
[2025-02-13 15:21] VITALS: BP 145/73; PULSE 73; RESP 16; TEMP 36.6; O2SAT 98
== END 2025-02-13 23:59 | disposition home or self-care (01) ==
PROVIDERS: PCP Internal Medicine; Visit Provider Psychiatry & Neurology Neurology
DX: G70.01 Myasthenia gravis with (acute) exacerbation (principal); Z79.899 Other long term (current) drug therapy
CPT/HCPCS: 96372; J9334

== ENCOUNTER → 2025-02-20 12:49 | Outpatient (BNVA) | payer MEDICARE, OTHER, SELFPAY | PROVIDERS: PCP Internal Medicine; Visit Provider Podiatrist Foot & Ankle Surgery | DX: S92.351A Displaced fracture of fifth metatarsal bone, right foot, initial encounter for closed fracture (principal); X58.XXXA Exposure to other specified factors, initial encounter; E11.9 Type 2 diabetes mellitus without complications | CPT/HCPCS: 73630; 99213 ==

== ENCOUNTER 2025-02-26 14:40 | Outpatient (CLI) | payer MEDICARE, OTHER, SELFPAY ==
--- NOTE | 2025-02-26 14:45 | XR_ITS ---
WS: [id number] DEXA (DUAL ENERGY X-RAY ABSORPTIOMETRY) Bone mineral density was performed using a [employer] machine. HISTORY: ASYMPTOMATIC POSTMENOPAUSAL STATUS COMPARISON: 12/23/2022 Lumbar spine BMD (L1-L4): 0.817 g/cm2 T score: -3.0 Z score: -1.7 Total hip BMD: Right: 0.655. T score: -2.8 Z score: -1.8 Left forearm BMD: 0.615 g/cm2. T score: -3.0 Z score: -1.6 10 year probability of a major osteoporotic fracture is 41.6%. Compared to the prior study from 12/23/2022. Lumbar spine bone mineral density has decreased by 3.5%. RIGHT hip bone mineral density has decreased by 2.4%. LEFT forearm bone mineral density has increased by 8.5%. XR/XR DEXA axial skeleton* 40091 IMPRESSION: OSTEOPOROSIS based upon the WHO classification for females. Significant decrease in bone mineral density within the lumbar spine and RIGHT hip since the prior study. Bone mineral density has increased significantly wit hin the LEFT forearm.
== END 2025-02-26 14:41 | disposition home or self-care (01) ==
PROVIDERS: PCP Internal Medicine; Visit Provider Internal Medicine
DX: Z13.820 Encounter for screening for osteoporosis (principal); Z78.0 Asymptomatic menopausal state; M81.8 Other osteoporosis without current pathological fracture
CPT/HCPCS: 77080

== ENCOUNTER 2025-02-27 10:52 | Oncology outpatient (recurring) (ONCR) | payer MEDICARE, OTHER, SELFPAY ==
[2025-02-27 11:19] VITALS: BP 137/79; PULSE 77; RESP 18; TEMP 36.6; O2SAT 94
[2025-02-27] MEDS: [UNRECOGNIZED DRUG - OTHER] 1008 MG SUBCUT (11:31)
[2025-02-27 12:12] VITALS: BP 137/79; PULSE 76; RESP 18; TEMP 36.6; O2SAT 96
== END 2025-02-27 23:59 | disposition home or self-care (01) ==
PROVIDERS: PCP Internal Medicine; Visit Provider Psychiatry & Neurology Neurology
DX: G70.01 Myasthenia gravis with (acute) exacerbation (principal); Z79.899 Other long term (current) drug therapy
CPT/HCPCS: 96401; J9334